=== PATIENT | female | born 1960 ===

== ENCOUNTER 2020-12-13 08:04 | Outpatient (REF) | payer MEDICAID, SELFPAY ==
--- NOTE | ~2020-12-13 | XR_ITS ---
EXAMINATION: XR KNEE, LEFT CLINICAL INFORMATION: Pain in left knee COMPARISON: Radiographs of the knee 06/17/2011 TECHNIQUE: Four views of the left knee. FINDINGS: There is mild narrowing along the lateral patellofemoral groove. The bones and soft tissues are otherwise normal. No fracture or joint effusion. Alignment is anatomic. Remaining joint spaces are well maintained. No abnormal soft tissue calcification. XR/XR knee LT 3V IMPRESSION: Mild narrowing along the bilateral patellofemoral groove. Otherwise unremarkable appearance of the knee.
--- NOTE | ~2020-12-13 | XR_ITS ---
EXAMINATION: XR LUMBOSACRAL SPINE CLINICAL INFORMATION: The ankle with sciatica, left side COMPARISON: Radiographs of the lumbar spine, most recently 09/17/2015 TECHNIQUE: Three views of the lumbosacral spine. FINDINGS: There is a mild dextro scoliotic curvature of the lumbosacral spine which is unchanged from the prior study. Alignment is otherwise normal. The vertebral body heights and posterior elements are normal. There is moderate loss of disc space at the L5-S1 level. There is associated degenerative endplate remodeling at this level as well as mild endplate remodeling at the upper endplate of L5 .The disc spaces are otherwise preserved. The paraspinal soft tissues are normal. XR/XR lumbar spine 2-3V IMPRESSION: Mild dextro scoliotic curvature of the lumbar spine, unchanged from prior studies. Moderate intervertebral disc space loss at L5-S1 with associated degenerative endplate change.
== END 2020-12-13 08:05 | disposition home or self-care (01) ==
LOC: HO.XRAY 08:04
PROVIDERS: PCP Internal Medicine; Referring Provider Internal Medicine; Visit Provider Student in an Organized Health Care Education/Training Program
DX: M70.62 Trochanteric bursitis, left hip (principal); G89.29 Other chronic pain; M25.562 Pain in left knee; M54.42 Lumbago with sciatica, left side
CPT/HCPCS: 20610; 72100; 73562; 99212

== ENCOUNTER 2021-02-20 13:28 | Outpatient (REF) | payer MEDICAID, SELFPAY | END 2021-02-20 13:29 | disposition home or self-care (01) | LOC: HO.LAB 13:28 | PROVIDERS: Visit Provider Internal Medicine | DX: Z20.822 Contact with and (suspected) exposure to COVID-19 (principal) | CPT/HCPCS: C9803; U0003; U0005 ==

== ENCOUNTER 2021-05-21 13:45 | Outpatient (REF) | payer MEDICAID, SELFPAY ==
--- NOTE | ~2021-05-21 | MM_ITS ---
EXAMINATION: BONE DENSITOMETRY CLINICAL INDICATION: Menopause. COMPARISON: Previous BD dated 05/17/2015 and baseline BD dated 02/08/2010. TECHNIQUE: Using a [employer] DXA System (software version: 13.1) manufactured by [employer], dual-energy x-ray absorptiometry was performed of the lumbar spine and left hip. The images are of good technical quality. Summary results are attached. FINDINGS: AP SPINE L1-L4: Current: BMD 0.899 g/cm2, Z-score -0.9, T-score -2.3, osteopenia, 0.2% decrease from previous, 16.4% decrease from baseline (<5% change is not significant). Prior: BMD 0.901 g/cm2. Baseline: BMD 1.076 g/cm2. LEFT FEMUR, NECK: Current: BMD 0.689 g/cm2, Z-score -1.1, T-score -2.5, osteoporosis. Prior: BMD 0.713 g/cm2. Baseline: BMD 0.773 g/cm2. LEFT FEMUR, TOTAL: Current: BMD 0.775 g/cm2, Z-score -0.8, T-score -1.8, osteopenia, 2.3% decrease from previous, 9.4% decrease from baseline (<5% change is not significant). Prior: BMD 0.793 g/cm2. Baseline: BMD 0.855 g/cm2. IDENTIFIED RISK FACTORS: Menopause, hysterectomy. HISTORY OF FRACTURE: None listed. MEDICATIONS: Calcium supplements or multivitamin, vitamin D. MM/XR DEXA axial skeleton IMPRESSION: 1. DIAGNOSIS: Osteoporosis based on the lowest T-score value of -2.5 in the femoral neck applying World Health Organization criteria. 2. 10-YEAR FRACTURE RISK PREDICTION, FRAX: Major osteoporotic fracture (clinical spine, forearm, hip or shoulder) 6.1%. Hip fracture 1.2%. 3. Treatment Recommendations: NOF guidelines recommend consideration for treatment in postmenopausal women and men age 50 and older presenting with the following: -A hip or vertebral (clinical or morphometric) fracture. -T-score less than or equal to -2.5 at the femoral neck or spine after appropriate evaluation to exclude secondary causes. -Low bone mass at the hip or spine and a 10-year fracture probability by FRAX of greater than or equal to 3% for hip fracture or greater than or equal to 20% for major osteoporotic fracture based on the [place] adapted WHO algorithm. 4. Other Recommendations: All treatment decisions require clinical judgment and consideration of individual patient factors, including patient preferences, comorbidities, previous drug use, risk factors not captured in the FRAX model (e.g. frailty, falls, vitamin D deficiency, increased bone turnover, interval significant decline in bone density) and possible under or overestimation of fracture risk by FRAX. Additional medical evaluation for secondary cause of low bone mineral density may be appropriate. FUTURE SCAN RECOMMENDATION: People with diagnosed cases of osteoporosis or at high risk for fracture should have regular bone mineral density tests. For patients eligible for Medicare, routine testing is allowed once every 2 years. The testing frequency can be increased to one year for patients who have rapidly progressing disease, those who are receiving or discontinuing medical therapy to restore bone mass, or have additional risk factors.
--- NOTE | ~2021-05-21 | MM_ITS ---
EXAMINATION: MM SCREENING DIGITAL BREAST TOMOSYNTHESIS, BILATERAL CLINICAL INFORMATION: Screening. Asymptomatic. Prior history breast reduction mammoplasty. The lifetime risk of breast cancer based on the Tyrer-Cuzick Model is 6%. COMPARISON: Mammography: 07/14/2019, 06/15/2017, 11/26/2015 TECHNIQUE: Digital breast tomosynthesis is performed in both the craniocaudal and mediolateral oblique views along with computer-aided detection (CAD). Synthesized 2D images are generated from the tomosynthesis. FINDINGS: There are scattered areas of fibroglandular density (ACR BI-RADS breast composition Category b). There are no significant masses, abnormal calcifications, or other abnormalities. The axilla are unremarkable. MM/MM tomosynthesis screening BI IMPRESSION: There are no significant changes from prior study. ASSESSMENT: BI-RADS 1: Negative RECOMMENDATION: Routine annual mammography screening. This patient's information was entered into a reminder system with a target due date for their next mammogram.
== END 2021-05-21 13:46 | disposition home or self-care (01) ==
LOC: HO.MAMMO 13:45
PROVIDERS: Visit Provider Internal Medicine
DX: Z12.31 Encounter for screening mammogram for malignant neoplasm of breast (principal); Z13.820 Encounter for screening for osteoporosis; M81.0 Age-related osteoporosis without current pathological fracture; Z78.0 Asymptomatic menopausal state; Z98.890 Other specified postprocedural states
CPT/HCPCS: 77063; 77067; 77080

== ENCOUNTER 2022-11-18 23:49 | Emergency (ER) | payer MEDICAID, SELFPAY ==
[2022-11-19 00:01] VITALS: BP 155/84; PULSE 48; RESP 18; TEMP 36.6; O2SAT 99; BMI 23.6
== END 2022-11-19 03:43 | disposition left against medical advice (07) ==
PROVIDERS: Emergency Provider Emergency Medicine; PCP Internal Medicine
DX: T15.91XA Foreign body on external eye, part unspecified, right eye, initial encounter (principal); X58.XXXA Exposure to other specified factors, initial encounter
CPT/HCPCS: 99281

== ENCOUNTER 2022-11-20 13:21 | Emergency (ER) | payer MEDICAID, SELFPAY ==
[2022-11-20 13:46] VITALS: BP 149/81; PULSE 47; RESP 20; TEMP 36.2; O2SAT 99; BMI 23.6
--- NOTE | 2022-11-20 13:46 | ED_ITS ---
HPI - Eye Problem General Chief complaint: Eye Problems <Laura Torres CNP - Last Filed: 11/20/22 13:49> Stated complaint: eyes itchy and hot <Laura Torres CNP - Last Filed: 11/20/22 13:49> Time Seen by Provider: 11/20/22 14:56 <Laura Torres CNP - Last Filed: 11/20/22 13:49> Source: patient and RN notes reviewed <JANEY Jaime - Last Filed: 11/20/22 15:47> Mode of arrival: ambulatory <JANEY Jaime Last Filed: 11/20/22 15:47> Limitations: no limitations and language barrier (educational sign language interpreter used) <JANEY Jaime Last Filed: 11/20/22 15:47> History of Present Illness HPI Narrative: This is a [id number]-female presenting to the emergency department with complaints of bilateral eye eye pain, itching and burning x 3 days. Patient states that 4 days ago she went to the mall to have eyelash extensions placed on her eyelids. She states that she woke up 3 days ago, she woke up with her symptoms. She denies any changes in her vision or any fevers or chills. She has had false lashes in the past without this type of reaction. She does not wear contact lenses <JANEY Jaime - Last Filed: 11/20/22 15:47> MD chief complaint: eye pain and eye redness <JANEY Jaime Last Filed: 11/20/22 15:47> Onset (ago): day(s) <JANEY Jaime - Last Filed: 11/20/22 15:47> Duration: constant <JANEY Jaime Last Filed: 11/20/22 15:47> Location: both eyes <JANEY Jaime Last Filed: 11/20/22 15:47> Eye Symptoms: burning, redness and pain <JANEY Jaime Last Filed: 11/20/22 15:47> Severity: moderate <JANEY Jaime Last Filed: 11/20/22 15:47> If Pain, Quality: aching <JANEY Jaime - Last Filed: 11/20/22 15:47> Associated symptoms: none <JANEY Jaime - Last Filed: 11/20/22 15:47> Treatments Prior to Arrival: none <JANEY Jaime - Last Filed: 11/20/22 15:47> Related Data Home medications: Home Medications Medication Instructions Recorded Confirmed amlodipine 5 mg tablet 5 mg PO DAILY 12/13/20 cholecalciferol (vitamin D3) 25 25 mcg PO DAILY 12/13/20 mcg (1,000 unit) capsule cyclobenzaprine 10 mg tablet 10 mg PO BEDTIME 12/13/20 duloxetine 30 mg capsule,delayed 30 mg PO DAILY 12/13/20 release (Cymbalta) gabapentin 100 mg capsule 100 mg PO BEDTIME 12/13/20 hydrochlorothiazide 25 mg tablet 25 mg PO DAILY 12/13/20 metoprolol succinate 25 mg 25 mg PO BID 12/13/20 tablet,extended release 24 hr naproxen 500 mg tablet,delayed 500 mg PO Q12H 12/13/20 release (EC-Naprosyn) omega-3 fatty acids 1,000 mg 1,000 mg PO DAILY 12/13/20 capsule (Fish Oil Concentrate) Previous Rx's Medication Instructions Recorded diphenhydramine HCl 25 mg capsule 50 mg PO Q8H PRN allergy symptoms 11/20/22 (Benadryl) #10 caps erythromycin 5 mg/gram (0.5 %) eye 0.5 inch ophthalmic (eye) TID 1 11/20/22 ointment week #3.5 grams <Laura Torres CNP - Last Filed: 11/20/22 13:49> Allergies/adverse reactions: Allergies Allergy/AdvReac Type Severity Reaction Status Date / Time No Known Allergies Allergy Verified 12/13/20 08:11 [No Known Allergies*] <Laura Torres CNP - Last Filed: 11/20/22 13:49> Review of Systems Review of Systems: Yes all other systems are reviewed and are negative <JANEY Jaime - Last Filed: 11/20/22 15:47> [facility] Past Medical History Medical History: Medical History (Updated 11/20/22 @ 15:19 by JANEY Jaime) Cervical spondylosis Fibromyalgia Ganglion cyst HTN (hypertension) Osteoarthritis Osteopenia Vitamin D deficiency <Laura Torres CNP - Last Filed: 11/20/22 13:49> Surgical History: Surgical History (Updated 12/13/20 @ 08:15 by Lety Gamez CMA) Hx of hysterectomy Hx of tubal ligation S/P foot surgery, right <Laura Torres CNP - Last Filed: 11/20/22 13:49> Family History Family History: Family History (Updated 12/13/20 @ 08:16 by Lety Gamez CMA) Father HTN (hypertension) Mother CVD (cardiovascular disease) <Laura Torres CNP - Last Filed: 11/20/22 13:49> Social History Social History: Social History (Updated 12/13/20 @ 08:17 by Lety Gamez CMA) Household Members: Spouse and Children Housing: Apartment Alcohol intake: never Smoked in Last 30 Days: No Use of substances other than those prescribed or required for medical reasons: No Advance Directives: No Advance Directives Information Provided: Yes Patient : No <Laura Torres CNP - Last Filed: 11/20/22 13:49> Physical Exam Vital Signs: Vital Signs: Last Vital Signs Temp 97.2 F 11/20/22 13:46 Pulse 47 L 11/20/22 13:46 Resp 20 11/20/22 13:46 BP 149/81 H 11/20/22 13:46 Pulse Ox 99 11/20/22 13:46 O2 Del Method 11/20/22 13:46 BMI result Body Mass Index 23.6 <Laura Torres CNP - Last Filed: 11/20/22 13:49> Vital Signs: Last Vital Signs Temp 97.2 F 11/20/22 13:46 Pulse 47 L 11/20/22 13:46 Resp 20 11/20/22 13:46 BP 149/81 H 11/20/22 13:46 Pulse Ox 99 11/20/22 13:46 O2 Del Method 11/20/22 13:46 BMI result Body Mass Index 23.6 <JANEY Jaime - Last Filed: 11/20/22 15:47> Vital Signs: Last Vital Signs Temp 97.2 F 11/20/22 13:46 Pulse 47 L 11/20/22 13:46 Resp 20 11/20/22 13:46 BP 149/81 H 11/20/22 13:46 Pulse Ox 99 11/20/22 13:46 O2 Del Method 11/20/22 13:46 BMI result Body Mass Index 23.6 <Jimmy Paredes MD - Last Filed: 11/20/22 16:20> Appearance: Alert. Oriented X3. No acute distress. HEENT: Bilateral upper and lower eyelids are midly edematous with crusting along the eyelash lid. No drainage. Conjunctiva normal. EOMI, PERRL CVS: Normal heart rate and rhythm. Pulses normal. Respiratory: No respiratory distress. Skin: Skin warm and dry. Normal skin color. Normal skin turgor. No rashes. Extremities: Normal to inspection, full ROM x 4 Neuro: Oriented X 3. No motor deficit. No sensory deficit. <JANEY Jaime - Last Filed: 11/20/22 15:47> Course Course Course Narrative: This is an RME: Additional HPI, ROS, PE not included below will be deferred to primary provider. Patient is a 62-year-old female who presents emergency department for evaluation of eye complaint. She reports bilateral eye pain, itching and burning sensation x 3 days after applying false eyelash extensions. She has a foreign body sensation to the right eye. Denies wearing contact lenses. Plan: visual acuity, optic evaluation. <Laura Torres CNP - Last Filed: 11/20/22 13:49> Reevaluation(s) Reevaluation #1: Patient evaluated. Visual acuity intact. Symptoms consistent with blepharitis secondary to false lashes, bacterial vs allergic. Will treat with erythromycin ointment and benadryl and advised to have the false lashes removed today. Counseled patient to return with any new or worsening symptoms. Patient understands and agrees with plan. <JANEY Jaime - Last Filed: 11/20/22 15:47> Time: 15:26 <JANEY Jaime - Last Filed: 11/20/22 15:47> Medications Administered Discontinued Medications Generic Name Dose Route Start Last Admin Trade Name Freq PRN Reason Stop Dose Admin Fluorescein Sodium 1 strip 11/20/22 13:49 11/20/22 15:19 Fluorescein Sodium Strip EYE-BOTH 11/20/22 13:50 Not Given ONCE ONE Tetracaine HCl 1 drop 11/20/22 13:49 11/20/22 15:19 Tetracaine Hcl/Pf 0.5% Oph Thu 4 Ml Drops EYE-BOTH 11/20/22 13:50 Not Given ONCE ONE <Laura Torres CNP - Last Filed: 11/20/22 13:49> Medications Administered Discontinued Medications Generic Name Dose Route Start Last Admin Trade Name Freq PRN Reason Stop Dose Admin Fluorescein Sodium 1 strip 11/20/22 13:49 11/20/22 15:19 Fluorescein Sodium Strip EYE-BOTH 11/20/22 13:50 Not Given ONCE ONE Tetracaine HCl 1 drop 11/20/22 13:49 11/20/22 15:19 Tetracaine Hcl/Pf 0.5% Oph Thu 4 Ml Drops EYE-BOTH 11/20/22 13:50 Not Given ONCE ONE <JANEY Jaime - Last Filed: 11/20/22 15:47> Medications Administered Discontinued Medications Generic Name Dose Route Start Last Admin Trade Name Freq PRN Reason Stop Dose Admin Fluorescein Sodium 1 strip 11/20/22 13:49 11/20/22 15:19 Fluorescein Sodium Strip EYE-BOTH 11/20/22 13:50 Not Given ONCE ONE Tetracaine HCl 1 drop 11/20/22 13:49 11/20/22 15:19 Tetracaine Hcl/Pf 0.5% Oph Thu 4 Ml Drops EYE-BOTH 11/20/22 13:50 Not Given ONCE ONE <Jimmy Paredes MD - Last Filed: 11/20/22 16:20> Medical Decision Making Medical Decision Making MDM Narrative: 34-[id number]-llr-female presenting today with probable blepharitis, viral vs bacterial secondary to false eyelashes. <JANEY Jaime - Last Filed: 11/20/22 15:47> Differential Diagnosis Differential Diagnoses: The differential diagnosis associated with the presentation includes <JANEY Jaime - Last Filed: 11/20/22 15:47> blepharitis, conjunctivitis, iritis, hordeolum <JANEY aJime - Last Filed: 11/20/22 15:47> Attestation Attending Attestation: I reviewed HOME HEALTH SCHEDULER/PA/Resident note, assessment and plan. I agree with the documentation, assessment and plan unless otherwise stated. <Jimmy Paredes MD - Last Filed: 11/20/22 16:20> Discharge Plan Discharge Clinical Impression: Blepharitis of both eyes <Laura Torres CNP - Last Filed: 11/20/22 13:49> Patient Disposition: Home, Self-Care <Laura Torres CNP - Last Filed: 11/20/22 13:49> Instructions: Blepharitis (ED) <Laura Torres CNP - Last Filed: 11/20/22 13:49> Additional Instructions: Your symptoms are likely due to the false lashes you had placed several days ago. Please have these removed today. Use prescribed antibiotic as directed. Take prescribed benadryl as directed, this may drowsiness, do not drink or operate heavy machinery while taking this medication. If you develop new or worsening symptoms call 911 or come back to the ER for further evaluation. Es probable que nabil s?ntomas se deban a las pesta?as postizas que le colocaron hace varios d?as. Por favor, elim?nelos hoy. Use el antibi?hannah recetado seg?n las indicaciones. [place] el benadryl recetado seg?n las indicaciones, esto puede causar somnolencia, no clover ni opere maquinaria pesada mientras bonnie bette medicamento. Si desarrolla s?ntomas nuevos o que empeoran, llame al 911 o regrese a la lynn de emergencias para allit evaluaci?n adicional. <Laura Torres CNP - Last Filed: 11/20/22 13:49> Prescriptions: New diphenhydramine HCl [Benadryl] 25 mg capsule 50 mg PO Q8H PRN (Reason: allergy symptoms) Qty: 10 0RF erythromycin 5 mg/gram (0.5 %) ointment 0.5 inch ophthalmic (eye) TID 7 Days Qty: 3.5 0RF No Action cholecalciferol (vitamin D3) 25 mcg (1,000 unit) capsule 25 mcg PO DAILY duloxetine [Cymbalta] 30 mg capsule,delayed release(DR/EC) 30 mg PO DAILY metoprolol succinate 25 mg tablet extended release 24 hr 25 mg PO BID amlodipine 5 mg tablet 5 mg PO DAILY gabapentin 100 mg capsule 100 mg PO BEDTIME cyclobenzaprine 10 mg tablet 10 mg PO BEDTIME hydrochlorothiazide 25 mg tablet 25 mg PO DAILY naproxen [EC-Naprosyn] 500 mg tablet,delayed release (DR/EC) 500 mg PO Q12H omega-3 fatty acids [Fish Oil Concentrate] 1,000 mg capsule 1,000 mg PO DAILY <Laura Torres CNP - Last Filed: 11/20/22 13:49> Interventions: ED Discharge Assessment Last Done: 11/20/22 15:34 <Laura Torres CNP - Last Filed: 11/20/22 13:49> Discharge Date/Time: 11/20/22 15:35 <Laura Torres CNP - Last Filed: 11/20/22 13:49> Print Language: Qatari <Laura Torres CNP - Last Filed: 11/20/22 13:49>
== END 2022-11-20 15:35 | disposition home or self-care (01) ==
PROVIDERS: Emergency Provider Emergency Medicine
DX: H01.00B Unspecified blepharitis left eye, upper and lower eyelids (principal); H01.00A Unspecified blepharitis right eye, upper and lower eyelids; I10 Essential (primary) hypertension; Z79.899 Other long term (current) drug therapy
CPT/HCPCS: 99283; 99284

== ENCOUNTER 2023-01-27 13:09 | Outpatient (REF) | payer MEDICAID, SELFPAY ==
--- NOTE | ~2023-01-27 | CT_ITS ---
CT SOFT TISSUE NECK WITH CONTRAST CLINICAL INFORMATION: Mass of the left hyoid. Infectious symptoms. COMPARISON: None available. TECHNIQUE: Following the intravenous administration of 60 mL of Omnipaque 350 intravenous contrast, helical imaging was performed in the axial plane with generation of coronal and sagittal reformatted images. This CT examination was performed using dose optimization techniques as appropriate, variously including the following: *Automated exposure control *Adjustment of mA and/or kV according to patient size (this includes techniques or standardized protocols for targeted exams where dose is matched to indication/reason for exam; i.e. extremities or head) *Use of iterative reconstruction technique FINDINGS: The thyroid gland is heterogeneous, enlarged, and exhibits small hyperdense nodules. There is stranding within the visceral space adjacent to the thyroid and given the presence of infectious symptoms, acute thyroiditis is suspected. Recommend correlation with thyroid function tests and thyroid ultrasound. The parotid glands, the submandibular glands, and the orbital soft tissues are unremarkable. The superficial mucosal space is normal. The laryngeal structures are closely opposed in phonation and not diagnostically assessed. There is no cervical lymphadenopathy. Cervical arterial vasculature remains patent. Cervical venous system is patent. The partially imaged intracranial compartment is unremarkable. Imaged upper lungs are clear. Mild cervical spondylosis. Paranasal sinuses and mastoid air cells are clear. CT/CT soft tissue neck w IV con IMPRESSION: The thyroid gland is heterogeneous, enlarged, and exhibits small hyperdense nodules. There is stranding within the visceral space adjacent to the thyroid and given the presence of infectious symptoms, acute thyroiditis is suspected. Recommend correlation with thyroid function tests and thyroid ultrasound. These findings correlate with the site of palpable abnormality.
[2023-01-27] MEDS: iohexoL 350 MG/ML 100 ML INFUS..BTL IV (14:23)
[2023-01-28 07:27] LABS: Creatinine POC 0.7 mg/dL (0.5-1.4); GFR POC > 60
== END 2023-01-27 13:10 | disposition home or self-care (01) ==
LOC: HO.CT 13:09
PROVIDERS: Visit Provider Emergency Medicine
DX: R22.1 Localized swelling, mass and lump, neck (principal)
CPT/HCPCS: 70491; 82565; Q9967

== ENCOUNTER 2023-01-27 16:26 | Emergency (ER) | payer MEDICAID, SELFPAY ==
[2023-01-27 16:40] VITALS: BP 111/73; PULSE 71; RESP 18; TEMP 36; O2SAT 97; BMI 24.2
--- NOTE | 2023-01-27 16:40 | ED_ITS ---
HPI - Recheck/Abnormal Lab/Rx General Chief Complaint: General Medical <JANEY Jaime - Last Filed: 01/27/23 16:49> Stated Complaint: Abdnormal Labs/Sent from DR office <JANEY Jaime - Last Filed: 01/27/23 16:49> Time Seen by Provider: 01/27/23 21:18 <JANEY Jaime - Last Filed: 01/27/23 16:49> Source: patient <Ck Mancuso MD - Last Filed: 01/27/23 22:41> Mode of arrival: ambulatory <Ck Mancuso MD - Last Filed: 01/27/23 22:41> Limitations: no limitations <Ck Mancuso MD - Last Filed: 01/27/23 22:41> History of Present Illness HPI narrative: Patient history of hypertension, osteoporosis, fibromyalgia noticed pain and swelling of the thyroid for last 5 days had temperature 103 degrees yesterday with sore throat seen at urgent care office strep test everything was negative had a CT scan done today which showed inflammation of the thyroid gland no abscess or fluid collection patient denies any palpitation on arrival heart rate was 71 beats per minute patient is on metoprolol for hypertension <Ck Mancuso MD - Last Filed: 01/27/23 22:41> Related Data Home Medications: Home Medications Medication Instructions Recorded Confirmed amlodipine 5 mg tablet 5 mg PO DAILY 12/13/20 cholecalciferol (vitamin D3) 25 25 mcg PO DAILY 12/13/20 mcg (1,000 unit) capsule cyclobenzaprine 10 mg tablet 10 mg PO BEDTIME 12/13/20 duloxetine 30 mg capsule,delayed 30 mg PO DAILY 12/13/20 release (Cymbalta) gabapentin 100 mg capsule 100 mg PO BEDTIME 12/13/20 hydrochlorothiazide 25 mg tablet 25 mg PO DAILY 12/13/20 metoprolol succinate 25 mg 25 mg PO BID 12/13/20 tablet,extended release 24 hr naproxen 500 mg tablet,delayed 500 mg PO Q12H 12/13/20 release (EC-Naprosyn) omega-3 fatty acids 1,000 mg 1,000 mg PO DAILY 12/13/20 capsule (Fish Oil Concentrate) Previous Rx's Medication Instructions Recorded diphenhydramine HCl 25 mg capsule 50 mg PO Q8H PRN allergy symptoms 11/20/22 (Benadryl) #10 caps erythromycin 5 mg/gram (0.5 %) eye 0.5 inch ophthalmic (eye) TID 1 11/20/22 ointment week #3.5 grams ibuprofen 600 mg tablet 600 mg PO Q6H PRN fever or pain 01/27/23 #30 tabs <JANEY Jaime - Last Filed: 01/27/23 16:49> Allergies/Adverse Reactions: Allergies Allergy/AdvReac Type Severity Reaction Status Date / Time No Known Allergies Allergy Verified 01/27/23 16:40 [No Known Allergies*] <JANEY Jaime - Last Filed: 01/27/23 16:49> Review of Systems Review of Systems: Yes all other systems are reviewed and are negative <Ck Mancuso MD - Last Filed: 01/27/23 22:41> [facility] Past Medical History Medical History: Medical History Cervical spondylosis Fibromyalgia Ganglion cyst HTN (hypertension) Osteoarthritis Osteopenia Vitamin D deficiency <JANEY Jaime - Last Filed: 01/27/23 16:49> Surgical History: Surgical History Hx of hysterectomy Hx of tubal ligation S/P foot surgery, right <JANEY Jaime - Last Filed: 01/27/23 16:49> Family History Family History: Family History Father HTN (hypertension) Mother CVD (cardiovascular disease) <JANEY Jaime - Last Filed: 01/27/23 16:49> Social History Social History: Social History Household Members: Spouse and Children Housing: Apartment Alcohol intake: never Smoked in Last 30 Days: No Use of substances other than those prescribed or required for medical reasons: No Advance Directives: No Advance Directives Information Provided: No Patient : No <JANEY Jaime - Last Filed: 01/27/23 16:49> Physical Exam Vital Signs: Vital Signs: Last Vital Signs Temp 96.8 F 01/27/23 16:40 Pulse 65 01/27/23 22:00 Resp 16 01/27/23 22:00 BP 135/80 01/27/23 22:00 Pulse Ox 97 01/27/23 22:00 O2 Del Method Room Air 01/27/23 22:00 BMI result Body Mass Index 24.2 <JANEY Jaime - Last Filed: 01/27/23 16:49> Vital Signs: Last Vital Signs Temp 96.8 F 01/27/23 16:40 Pulse 65 01/27/23 22:00 Resp 16 01/27/23 22:00 BP 135/80 01/27/23 22:00 Pulse Ox 97 01/27/23 22:00 O2 Del Method Room Air 01/27/23 22:00 BMI result Body Mass Index 24.2 <Ck Mancuso MD - Last Filed: 01/27/23 22:41> Appearance: Alert. Oriented X3. No acute distress. Eyes: PERRLA, No Nystagmus ENT: Pharynx normal. Oral Mucosa moist enlarged thyroid gland normal temperature no skin color changes no bruits Neck: Normal inspection. Neck supple. CVS: Normal heart rate and rhythm. Pulses normal. Respiratory: No respiratory distress. Equal air entry bilateral, no wheezing/rales/rhonchi Abdomen: Soft and nontender. Bowel sounds are present, no mass palpable, no CVA tenderness Skin: Skin warm and dry. Normal skin color. Normal skin turgor. Extremities: No lower extremity edema. No calf tenderness Neuro: Oriented X 3. No motor deficit. No sensory deficit.No cerebellar signs , cranial nerves II-XII intact <Ck Mancuso MD - Last Filed: 01/27/23 22:41> Course Course Course Narrative: RME - 62 y/o female with history of fibromyalgia, osteoporosis, HTN who presents to the ER evaluation of neck pain for the last 5-6 days. Seen at Urgent Care yesterday and was told today that she has low sodium, chloride, potassium. She was sent here for an outpatient CT scan of her neck that showed findings concerning for acute thyroiditis. CT/CT soft tissue neck w IV con IMPRESSION: The thyroid gland is heterogeneous, enlarged, and exhibits small hyperdense nodules. There is stranding within the visceral space adjacent to the thyroid and given the presence of infectious symptoms, acute thyroiditis is suspected. Recommend correlation with thyroid function tests and thyroid ultrasound. These findings correlate with the site of palpable abnormality. Plan: no tachycardia or fever to suggest thyroid storm lab workup including TSH reflex to T4 and T4 <JANEY Jaime - Last Filed: 01/27/23 16:49> Medications Administered Discontinued Medications Generic Name Dose Route Start Last Admin Trade Name Freq PRN Reason Stop Dose Admin Ibuprofen 600 mg 01/27/23 22:25 01/27/23 22:30 Ibuprofen 600 Mg Tablet PO 01/27/23 22:26 600 mg ONCE ONE Administration Potassium Bicarbonate 25 meq 01/27/23 22:21 01/27/23 22:31 Potassium Bicarbonate/Cit Ac 25 Meq Tablet.Eff PO 01/27/23 22:22 25 meq ONCE ONE Administration <JANEY Jaime - Last Filed: 01/27/23 16:49> Medications Administered Discontinued Medications Generic Name Dose Route Start Last Admin Trade Name Freq PRN Reason Stop Dose Admin Ibuprofen 600 mg 01/27/23 22:25 01/27/23 22:30 Ibuprofen 600 Mg Tablet PO 01/27/23 22:26 600 mg ONCE ONE Administration Potassium Bicarbonate 25 meq 01/27/23 22:21 01/27/23 22:31 Potassium Bicarbonate/Cit Ac 25 Meq Tablet.Eff PO 01/27/23 22:22 25 meq ONCE ONE Administration <Ck Mancuso MD - Last Filed: 01/27/23 22:41> Medical Decision Making Medical Decision Making [facility] Narrative: Patient with subacute thyroiditis with elevated sed rate elevated CRP normal WBC count CT scan showed inflammation without any fluid collection will start patient on ibuprofen advised see the response he should get in decreasing pain in next 48 hours if not advised to follow-up with PCP to add steroids patient pain is mild not severe at this time patient advised to follow with professor of physical education Patient TSH was 0.11 but F T4 was normal 1.7 <Ck Mancuso MD - Last Filed: 01/27/23 22:41> Lab Data [facility] Lab Attestation statement: I reviewed the patient's lab results. <Ck Mancuso MD - Last Filed: 01/27/23 22:41> Result Diagrams: 01/27/23 16:50 01/27/23 16:50 <JANEY Jaime - Last Filed: 01/27/23 16:49> Labs: Lab Results 01/27/23 01/27/23 01/27/23 Range/Units 16:50 16:50 16:50 WBC 7.5 (4.8-10.8) X10*3/uL RBC 3.93 L (4.20-5.50) X10*6/uL Hgb 11.6 L (12.0-16.0) g/dl Hct 34.6 L (37.0-47.0) % MCV 88.0 (80.0-98.0) fL MCH 29.5 (27.0-33.0) pg MCHC 33.5 (31.0-35.0) g/dl RDW 12.3 (11.0-16.0) % Plt Count 386 (160-400) X10*3/uL MPV 10.1 (9.4-12.3) fL Immature Gran % (Auto) 0.4 (0.0-0.4) % Neut % (Auto) 58.0 (45-73) % Lymph % (Auto) 31.9 (20-40) % Rice % (Auto) 8.6 (2-11) % Eos % (Auto) 0.7 (0-4) % Baso % (Auto) 0.4 (0-2) % Lymph # (Auto) 2.4 (1.2-4.9) X10*3/uL Rice # (Auto) 0.6 (0.1-1.2) X10*3/uL Eos # (Auto) 0.1 (0.0-0.4) X10*3/uL Baso # (Auto) 0.0 (0.0-0.2) X10*3/uL Abs Immat Gran (auto) 0.03 (0.00-0.03) X10*3/uL Absolute Neuts (auto) 4.3 (2.0-8.3) x10*3/uL Absolute Nucleated RBC 0.000 (0.0-0.012) X10*3/uL Nucleated RBC % (auto) 0.0 (0.0-0.2) /100WBC ESR 86 H (0-20) MM/HR Sodium 132 L (135-145) mmol/L Potassium 3.1 L (3.3-5.1) mmol/L Chloride 89 L (96-108) mmol/L Carbon Dioxide 32 H (22-29) mmol/L Anion Gap 14 (12-20) BUN 11 (9-16) mg/dL Creatinine 0.75 (0.5-1.4) mg/dL Estim Creat Clear Calc 65.3 Estimated GFR > 60 Random Glucose 143 H (60-115) mg/dL Calcium 9.4 (8.4-10.2) mg/dL Magnesium 2.7 H (1.6-2.6) mg/dL Total Bilirubin 0.9 (0.0-1.0) mg/dL Direct Bilirubin 0.3 (0.0-0.5) mg/dL AST 36 H (5-31) U/L ALT 31 (0-31) U/L Alkaline Phosphatase 115 (39-117) U/L C-Reactive Protein 23.22 H (< or = 0.50) mg/dL Total Protein 7.9 (6.5-8.0) g/dL Albumin 4.2 (3.5-5.0) g/dL TSH 0.11 L (0.32-4.0) uIU/mL Free T4 1.70 (0.71-1.85) ng/dL <JANEY Jaime - Last Filed: 01/27/23 16:49> Lab Results 01/27/23 01/27/23 01/27/23 Range/Units 16:50 16:50 16:50 WBC 7.5 (4.8-10.8) X10*3/uL RBC 3.93 L (4.20-5.50) X10*6/uL Hgb 11.6 L (12.0-16.0) g/dl Hct 34.6 L (37.0-47.0) % MCV 88.0 (80.0-98.0) fL MCH 29.5 (27.0-33.0) pg MCHC 33.5 (31.0-35.0) g/dl RDW 12.3 (11.0-16.0) % Plt Count 386 (160-400) X10*3/uL MPV 10.1 (9.4-12.3) fL Immature Gran % (Auto) 0.4 (0.0-0.4) % Neut % (Auto) 58.0 (45-73) % Lymph % (Auto) 31.9 (20-40) % Rice % (Auto) 8.6 (2-11) % Eos % (Auto) 0.7 (0-4) % Baso % (Auto) 0.4 (0-2) % Lymph # (Auto) 2.4 (1.2-4.9) X10*3/uL Rice # (Auto) 0.6 (0.1-1.2) X10*3/uL Eos # (Auto) 0.1 (0.0-0.4) X10*3/uL Baso # (Auto) 0.0 (0.0-0.2) X10*3/uL Abs Immat Gran (auto) 0.03 (0.00-0.03) X10*3/uL Absolute Neuts (auto) 4.3 (2.0-8.3) x10*3/uL Absolute Nucleated RBC 0.000 (0.0-0.012) X10*3/uL Nucleated RBC % (auto) 0.0 (0.0-0.2) /100WBC ESR 86 H (0-20) MM/HR Sodium 132 L (135-145) mmol/L Potassium 3.1 L (3.3-5.1) mmol/L Chloride 89 L (96-108) mmol/L Carbon Dioxide 32 H (22-29) mmol/L Anion Gap 14 (12-20) BUN 11 (9-16) mg/dL Creatinine 0.75 (0.5-1.4) mg/dL Estim Creat Clear Calc 65.3 Estimated GFR > 60 Random Glucose 143 H (60-115) mg/dL Calcium 9.4 (8.4-10.2) mg/dL Magnesium 2.7 H (1.6-2.6) mg/dL Total Bilirubin 0.9 (0.0-1.0) mg/dL Direct Bilirubin 0.3 (0.0-0.5) mg/dL AST 36 H (5-31) U/L ALT 31 (0-31) U/L Alkaline Phosphatase 115 (39-117) U/L C-Reactive Protein 23.22 H (< or = 0.50) mg/dL Total Protein 7.9 (6.5-8.0) g/dL Albumin 4.2 (3.5-5.0) g/dL TSH 0.11 L (0.32-4.0) uIU/mL Free T4 1.70 (0.71-1.85) ng/dL <Ck Mancuso MD - Last Filed: 01/27/23 22:41> Radiology Impression Discussion of test interpretation with radiology: I have reviewed the radiologist's reading. <Ck Mancuso MD - Last Filed: 01/27/23 22:41> Radiologist Impression: CT/CT soft tissue neck w IV con IMPRESSION: The thyroid gland is heterogeneous, enlarged, and exhibits small hyperdense nodules. There is stranding within the visceral space adjacent to the thyroid and given the presence of infectious symptoms, acute thyroiditis is suspected. Recommend correlation with thyroid function tests and thyroid ultrasound. These findings correlate with the site of palpable abnormality. <Ck Mancuso MD - Last Filed: 01/27/23 22:41> Discharge Plan Discharge Clinical Impression: Subacute thyroiditis <JANEY Jaime - Last Filed: 01/27/23 16:49> Patient Disposition: Home, Self-Care <JANEY Jaime - Last Filed: 01/27/23 16:49> Instructions: Thyroid Goiter (ED) <JANEY Jaime - Last Filed: 01/27/23 16:49> Additional Instructions: Continue medications and follow up with specialist further manage Take ibuprofen 1 tablet every 6 hours for inflammation pain <JANEY Jaime - Last Filed: 01/27/23 16:49> Prescriptions: New ibuprofen 600 mg tablet 600 mg PO Q6H PRN (Reason: fever or pain) Qty: 30 0RF No Action diphenhydramine HCl [Benadryl] 25 mg capsule 50 mg PO Q8H PRN (Reason: allergy symptoms) Qty: 10 0RF erythromycin 5 mg/gram (0.5 %) ointment 0.5 inch ophthalmic (eye) TID 7 Days Qty: 3.5 0RF cholecalciferol (vitamin D3) 25 mcg (1,000 unit) capsule 25 mcg PO DAILY duloxetine [Cymbalta] 30 mg capsule,delayed release(DR/EC) 30 mg PO DAILY metoprolol succinate 25 mg tablet extended release 24 hr 25 mg PO BID amlodipine 5 mg tablet 5 mg PO DAILY gabapentin 100 mg capsule 100 mg PO BEDTIME cyclobenzaprine 10 mg tablet 10 mg PO BEDTIME hydrochlorothiazide 25 mg tablet 25 mg PO DAILY naproxen [EC-Naprosyn] 500 mg tablet,delayed release (DR/EC) 500 mg PO Q12H omega-3 fatty acids [Fish Oil Concentrate] 1,000 mg capsule 1,000 mg PO DAILY <JANEY Jaime - Last Filed: 01/27/23 16:49> Referrals: Daniel Finley MD [Physician] - 3 days <JANEY Jaime - Last Filed: 01/27/23 16:49> Print Language: English <JANEY Jaime - Last Filed: 01/27/23 16:49>
[2023-01-27 16:55] LABS: MANUAL DIFF FLAG NO
[2023-01-27 17:05] LABS: Basophils Percent Auto 0.4 % (0-2); Eosinophils Absolute Auto 0.1 X10*3/uL (0.0-0.4); Eosinophils Percent Auto 0.7 % (0-4); Hematocrit 34.6 % (37.0-47.0); Hemoglobin 11.6 g/dl (12.0-16.0); Imm Gran Abs Auto 0.03 X10*3/uL (0.00-0.03); Imm Gran Pct Auto 0.4 % (0.0-0.4); Lymphocytes Absolute Auto 2.4 X10*3/uL (1.2-4.9); Lymphocytes Percent Auto 31.9 % (20-40); Mean Corpuscular HGB Conc 33.5 g/dl (31.0-35.0); Mean Corpuscular Hemoglobin 29.5 pg (27.0-33.0); Mean Platelet Volume 10.1 fL (9.4-12.3); Monocytes Absolute Auto 0.6 X10*3/uL (0.1-1.2); Monocytes Percent Auto 8.6 % (2-11); Neutrophils Absolute Auto 4.3 x10*3/uL (2.0-8.3); Platelet Count 386 X10*3/uL (160-400); Red Blood Count 3.93 X10*6/uL (4.20-5.50); Red Cell Distribution Width 12.3 % (11.0-16.0); White Blood Count 7.5 X10*3/uL (4.8-10.8)
[2023-01-27 17:23] LABS: Alanine Aminotransferase 31 U/L (0-31); Albumin Level 4.2 g/dL (3.5-5.0); Alkaline Phosphatase 115 U/L (39-117); Anion Gap 14 (12-20); Aspartate Amino Transferase 36 U/L (5-31); Bilirubin Direct 0.3 mg/dL (0.0-0.5); Bilirubin Total 0.9 mg/dL (0.0-1.0); Blood Urea Nitrogen 11 mg/dL (9-16); C Reactive Protein 23.22 mg/dL (< or = 0.50); Calcium 9.4 mg/dL (8.4-10.2); Carbon Dioxide 32 mmol/L (22-29); Chloride 89 mmol/L (96-108); Creatinine Clr Calc Pharmacy 65.3; Estimated Glomerular Filt Rate > 60; Glucose Random 143 mg/dL (60-115); Magnesium 2.7 mg/dL (1.6-2.6); Potassium 3.1 mmol/L (3.3-5.1); Sodium 132 mmol/L (135-145); Total Protein 7.9 g/dL (6.5-8.0)
[2023-01-27 17:37] LABS: TSH reflex Free T4 0.11 uIU/mL (0.32-4.0)
[2023-01-27 18:09] LABS: Erythrocyte Sedimentation Rate 86 MM/HR (0-20)
[2023-01-27 22:00] VITALS: BP 135/80; PULSE 65; RESP 16; O2SAT 97
[2023-01-27] MEDS: Ibuprofen 600 MG TABLET PO (22:30)
[2023-01-27] MEDS: Potassium Bicarbonate/Cit AC 25 MEQ TABLET.EFF PO (22:31)
[2023-01-28 19:14] LABS: Triiodothyronine T3 Total 170 ng/dL (76-181)
== END 2023-01-27 22:44 | disposition home or self-care (01) ==
PROVIDERS: Physician Assistant; Emergency Provider Internal Medicine; PCP Internal Medicine
DX: E06.0 Acute thyroiditis (principal); R79.89 Other specified abnormal findings of blood chemistry; Z79.899 Other long term (current) drug therapy
CPT/HCPCS: 36415; 80048; 80076; 83735; 84439; 84443; 84480; 85025; 85652; 86140; 99283; 99284

== ENCOUNTER 2023-02-19 14:15 | Outpatient (REF) | payer MEDICAID, SELFPAY ==
--- NOTE | ~2023-02-19 | US_ITS ---
EXAMINATION: US THYROID CLINICAL INFORMATION: Thyroiditis, tender neck, lymphadenopathy. COMPARISON: CT soft tissue neck with intravenous contrast dated 01/27/2023. TECHNIQUE: Linear transducer grayscale and color Doppler examination with attention to the region of the thyroid. FINDINGS: SIZE: Measurements of the thyroid lobes and nodules are given in sagittal, anteroposterior and transverse dimensions respectively. Right Thyroid Lobe: 4.7 x 1.2 x 1.6 cm, volume 4.7 mL. Parenchyma: The gland echotexture is heterogeneous. Thyroid vascularity is normal. Left Thyroid Lobe: 3.9 x 1.3 x 1.4 cm, volume 3.7 mL. Parenchyma: The gland echotexture is heterogeneous. Thyroid vascularity is normal. Isthmus: 0.2 cm in maximum AP dimension. Estimated total number of nodules greater than or equal to 1 cm: 1. Obstetrical Anesthesiologist nodules are described as follows: 1. Location: Right superior. Size: 0.6 x 0.3 x 0.6 cm, volume 0.06 mL. Nodule characteristics: Composition: Solid/almost completely solid (2). Echogenicity: Hypoechoic (2). Shape: Not taller than wide (0). Margins: Ill-defined (0). Echogenic Foci: None (0). ACR TI-RADS total points: 4 ACR TI-RADS category: 4 2. Location: Right superior. Size: 1.1 x 0.7 x 0.7 cm, volume 0.27 mL. Nodule characteristics: Composition: Solid/almost completely solid (2). Echogenicity: Hypoechoic (2). Shape: Not taller than wide (0). Margins: Smooth (0). Echogenic Foci: Punctate echogenic foci (3). ACR TI-RADS total points: 7 ACR TI-RADS category: 5 3. Location: Right inferior. Size: 0.5 x 0.3 x 0.5 cm, volume 0.03 mL. Nodule characteristics: Composition: Mixed cystic and solid (1). Echogenicity: Hypoechoic (2). Shape: Not taller than wide (0). Margins: Smooth (0). Echogenic Foci: Punctate echogenic foci (3). ACR TI-RADS total points: 6 ACR TI-RADS category: 4 4. Location: Left mid. Size: 0.5 x 0.3 x 0.4 cm, volume 0.04 mL. Nodule characteristics: Composition: Mixed cystic and solid (1). Echogenicity: Hypoechoic (2). Shape: Not taller than wide (0). Margins: Ill-defined (0). Echogenic Foci: Punctate echogenic foci (3). ACR TI-RADS total points: 6 ACR TI-RADS category: 4 5. Location: Left mid. Size: 0.4 x 0.3 x 0.3 cm, volume 0.02 mL. Nodule characteristics: Composition: Cystic(0). ACR TI-RADS total points: 0 ACR TI-RADS category: 1 NODES: No lymphadenopathy is seen in the tissue surrounding the thyroid gland. US/US thyroid IMPRESSION: Multinodular goiter with only one mass over a centimeter in size measuring 1.1 cm. This mass is #2 above, TI-RADS category 5 and FNA is recommended. ACR TI-RADS RECOMMENDATION REFERENCE: Ultrasound-guided fine-needle aspiration, followup ultrasound, no further follow up. * TR1 (0 point) and TR2 (2 points): No FNA or follow up. * TR3 (3 points): FNA if more than or equal to 2.5 cm in maximum dimension, followup ultrasound in 1, 3 and 5 years if 1.5 to 2.4 cm in maximum dimension. * TR4 (4-6 points): FNA if more than or equal to 1.5 cm in maximum dimension, followup ultrasound in 1, 2, 3 and 5 years if 1 to 1.4 cm in maximum dimension. * TR5 (more than or equal to 7 points): FNA if more than or equal to 1 cm in maximum dimension, followup ultrasound every year for 5 years if 0.5 to 0.9 cm in maximum dimension. * TR3, TR4 or TR5 nodules that are below the size threshold for followup receive no follow up.
== END 2023-02-19 14:16 | disposition home or self-care (01) ==
LOC: HO.HMGCX 14:15
PROVIDERS: PCP Internal Medicine; Visit Provider Internal Medicine
DX: E06.9 Thyroiditis, unspecified (principal)
CPT/HCPCS: 76536

== ENCOUNTER 2023-05-27 18:12 | Emergency (ER) | payer MEDICAID, SELFPAY ==
--- NOTE | 2023-05-27 18:20 | ED.GENADULT ---
HPI - General Adult General Chief complaint: General Medical Stated complaint: dizziness,nausea Time Seen by Provider: 05/27/23 22:26 Source: patient Mode of arrival: ambulatory Limitations: no limitations History of Present Illness HPI narrative: Patient complaining of generalized weakness all day today with muscle cramps nauseous sweaty no chest pain or palpitation abdominal pain no nausea no vomiting patient takes hydrochlorothiazide for hypertension was drinking enough fluids labs were done prior to my evaluation shows potassium of 2.7 patient does not have any prior history of low potassium Related Data Allergies Allergy/AdvReac Type Severity Reaction Status Date / Time No Known Allergies Allergy Verified 05/27/23 18:24 Review of Systems Review of Systems: Yes all other systems are reviewed and are negative [facility] Social History Social History Alcohol intake: never Smoked in Last 30 Days: No Use of substances other than those prescribed or required for medical reasons: No Advance Directives: No Advance Directives Information Provided: No Physical Exam ED Vital Signs: Vital Signs - 24 hr 05/27/23 18:25 05/27/23 21:34 05/28/23 01:09 Temperature 96.7 F L 97.8 F 97.8 F Pulse Rate 61 62 55 Respiratory Rate 16 14 16 Blood Pressure 152/86 H 142/68 H 151/78 H Pulse Oximetry 97 97 98 Oxygen Delivery Method Room Air Room Air Room Air BMI result Body Mass Index 23.4 Appearance: Alert. Oriented X3. No acute distress. Eyes: PERRLA, No Nystagmus ENT: Pharynx normal. Oral Mucosa moist Neck: Normal inspection. Neck supple. CVS: Normal heart rate and rhythm. Pulses normal. Respiratory: No respiratory distress. Equal air entry bilateral, no wheezing/rales/rhonchi Abdomen: Soft and nontender. Bowel sounds are present, no mass palpable, no CVA tenderness Skin: Skin warm and dry. Normal skin color. Normal skin turgor. Extremities: No lower extremity edema. No calf tenderness Neuro: Oriented X 3. No motor deficit. No sensory deficit.No cerebellar signs , cranial nerves II-XII intact Course Course Course Narrative: This is an RME: Additional HPI, ROS, PE not included below will be deferred to primary provider. This is a [id number]-[id number]-female, with a past medical history of osteoporosis, fibromyalgia, hypertension, presenting to the emergency department with a complaint of generalized weakness and nausea x1 hour. Denies fevers, chills, vomiting, chest pain, shortness of breath. Patient is full it neurologically intact. Vitals signs stable. Plan: Labs, EKG, UA Medications Administered Discontinued Medications Generic Name Dose Route Start Last Admin Trade Name Apolinarq PRN Reason Stop Dose Admin Sodium Chloride 1,000 mls @ 999 mls/hr 05/27/23 22:28 05/28/23 00:39 Ns IV 05/27/23 23:28 Infused .Q1H1M ONE Infusion Potassium Bicarbonate 50 meq 05/27/23 22:28 05/27/23 22:55 Potassium Bicarbonate/Cit Ac 25 Meq Tablet.Eff PO 05/27/23 22:29 50 meq ONCE ONE Administration Medical Decision Making Medical Decision Making [facility] Narrative: Patient workup shows potassium 2.7 without any EKG changes received 50 meq p.o. potassium repeat potassium was 3.5 patient feeling much better after IV fluids advised to have extra potassium containing foods today follow-up with PCP next week Differential Diagnosis Differential Diagnoses: The differential diagnosis associated with the presentation includes Hypomagnesemia/ hypokalemia /hyponatremia/dehydration/infection process Admission/Observation Consideration of admission/observation: Escalation of care including admission/observation considered Lab Data [facility] Lab Attestation statement: I reviewed the patient's lab results. 05/27/23 20:02 05/27/23 20:02 Labs: Lab Results 05/27/23 05/27/23 05/27/23 Range/Units 20:02 20:02 20:02 WBC 7.5 (4.8-10.8) X10*3/uL RBC 4.21 (4.20-5.50) X10*6/uL Hgb 12.6 (12.0-16.0) g/dl Hct 37.6 (37.0-47.0) % MCV 89.3 (80.0-98.0) fL MCH 29.9 (27.0-33.0) pg MCHC 33.5 (31.0-35.0) g/dl RDW 13.0 (11.0-16.0) % Plt Count 300 (160-400) X10*3/uL MPV 11.3 (9.4-12.3) fL Immature Gran % (Auto) 0.3 (0.0-0.4) % Neut % (Auto) 68.3 (45-73) % Lymph % (Auto) 22.4 (20-40) % [place] % (Auto) 7.7 (2-11) % Eos % (Auto) 0.8 (0-4) % Baso % (Auto) 0.5 (0-2) % Lymph # (Auto) 1.7 (1.2-4.9) X10*3/uL [place] # (Auto) 0.6 (0.1-1.2) X10*3/uL Eos # (Auto) 0.1 (0.0-0.4) X10*3/uL Baso # (Auto) 0.0 (0.0-0.2) X10*3/uL Abs Immat Gran (auto) 0.02 (0.00-0.03) X10*3/uL Absolute Neuts (auto) 5.1 (2.0-8.3) x10*3/uL Absolute Nucleated RBC 0.000 (0.0-0.012) X10*3/uL Nucleated RBC % (auto) 0.0 (0.0-0.2) /100WBC Sodium 136 (135-145) mmol/L Potassium 2.7 L (3.3-5.1) mmol/L Chloride 94 L (96-108) mmol/L Carbon Dioxide 30 H (22-29) mmol/L Anion Gap 15 (12-20) BUN 17 H (9-16) mg/dL Creatinine 0.77 (0.5-1.4) mg/dL Estim Creat Clear Calc 58.6 Estimated GFR > 60 Random Glucose 137 H (60-115) mg/dL Calcium 10.0 (8.4-10.2) mg/dL Magnesium 2.4 (1.6-2.6) mg/dL Total Bilirubin 0.4 (0.0-1.0) mg/dL Direct Bilirubin 0.2 (0.0-0.5) mg/dL AST 29 (5-31) U/L ALT 13 (0-31) U/L Alkaline Phosphatase 87 (39-117) U/L Troponin I High Sens < 2.7 (<3.5-17.0) ng/L Total Protein 8.5 H (6.5-8.0) g/dL Albumin 4.9 (3.5-5.0) g/dL Lipase 11 (8-78) U/L Urine Color Urine Appearance Urine pH (5.0-9.0) Ur Specific [place] (1.005-1.025) Urine Protein (Neg-Trace) mg/dL Urine Glucose (UA) (Negative) mg/dL Urine Ketones (Negative) mg/dL Urine Blood (Negative) Urine Nitrite (Negative) Ur Leukocyte Esterase (Negative) Urine RBC (0-2) /HPF Urine WBC (0-5) /HPF Ur Squamous Epith Cells (0-2) /HPF Urine Bacteria (None Seen) Hyaline Casts (0-2) /LPF Influenza Type A (PCR) (Negative) Influenza Type B (PCR) (Negative) RSV RNA Qual (PCR) (Negative) SARS-CoV-2 RNA (RT-PCR) (Negative) 05/27/23 05/27/23 05/28/23 Range/Units 20:02 20:02 00:41 WBC (4.8-10.8) X10*3/uL RBC (4.20-5.50) X10*6/uL Hgb (12.0-16.0) g/dl Hct (37.0-47.0) % MCV (80.0-98.0) fL MCH (27.0-33.0) pg MCHC (31.0-35.0) g/dl RDW (11.0-16.0) % Plt Count (160-400) X10*3/uL MPV (9.4-12.3) fL Immature Gran % (Auto) (0.0-0.4) % Neut % (Auto) (45-73) % Lymph % (Auto) (20-40) % [place] % (Auto) (2-11) % Eos % (Auto) (0-4) % Baso % (Auto) (0-2) % Lymph # (Auto) (1.2-4.9) X10*3/uL [place] # (Auto) (0.1-1.2) X10*3/uL Eos # (Auto) (0.0-0.4) X10*3/uL Baso # (Auto) (0.0-0.2) X10*3/uL Abs Immat Gran (auto) (0.00-0.03) X10*3/uL Absolute Neuts (auto) (2.0-8.3) x10*3/uL Absolute Nucleated RBC (0.0-0.012) X10*3/uL Nucleated RBC % (auto) (0.0-0.2) /100WBC Sodium 140 (135-145) mmol/L Potassium 3.5 D (3.3-5.1) mmol/L Chloride 100 (96-108) mmol/L Carbon Dioxide 31 H (22-29) mmol/L Anion Gap 13 (12-20) BUN (9-16) mg/dL Creatinine (0.5-1.4) mg/dL Estim Creat Clear Calc Estimated GFR Random Glucose (60-115) mg/dL Calcium (8.4-10.2) mg/dL Magnesium (1.6-2.6) mg/dL Total Bilirubin (0.0-1.0) mg/dL Direct Bilirubin (0.0-0.5) mg/dL AST (5-31) U/L ALT (0-31) U/L Alkaline Phosphatase (39-117) U/L Troponin I High Sens (<3.5-17.0) ng/L Total Protein (6.5-8.0) g/dL Albumin (3.5-5.0) g/dL Lipase (8-78) U/L Urine Color Yellow Urine Appearance Clear Urine pH 7.0 (5.0-9.0) Ur Specific [place] 1.010 (1.005-1.025) Urine Protein Negative (Neg-Trace) mg/dL Urine Glucose (UA) Negative (Negative) mg/dL Urine Ketones Negative (Negative) mg/dL Urine Blood Negative (Negative) Urine Nitrite Negative (Negative) Ur Leukocyte Esterase Trace H (Negative) Urine RBC 0-2 (0-2) /HPF Urine WBC 0-5 (0-5) /HPF Ur Squamous Epith Cells 0-2 (0-2) /HPF Urine Bacteria None Seen (None Seen) Hyaline Casts 0-2 (0-2) /LPF Influenza Type A (PCR) NEGATIVE (Negative) Influenza Type B (PCR) NEGATIVE (Negative) RSV RNA Qual (PCR) NEGATIVE (Negative) SARS-CoV-2 RNA (RT-PCR) NEGATIVE (Negative) Independent Interpretation I performed an independent interpretation of an: EKG Interpretation: Sinus bradycardia heart rate 52 beats per minute normal interval normal axis no acute ST-T changes no acute ischemia Discharge Plan Discharge Clinical Impression: Weakness, Hypokalemia Patient Disposition: Home, Self-Care Instructions: Hypokalemia (ED), Weakness (ED) Additional Instructions: Drink plenty of fluid Have extra bananas/orange juice daily Recheck potassium next week today , your potassium level was 2.7 Interventions: ED Discharge Assessment Last Done: 05/28/23 01:45 Discharge Date/Time: 05/28/23 01:46
[2023-05-27 18:25] VITALS: BP 130/90; BP 152/86; PULSE 61; PULSE 64; RESP 16; TEMP 35.9; O2SAT 96; O2SAT 97; BMI 23.4
--- NOTE | 2023-05-27 18:30 | ECG_ITS ---
Test Reason : dizziness Blood Pressure : / mmHG Vent. Rate : 052 BPM Atrial Rate : 052 BPM P-R Int : 144 ms QRS Dur : 092 ms QT Int : 436 ms P-R-T Axes : -25 034 148 degrees QTc Int : 405 ms Sinus bradycardia Low voltage QRS Lateral infarct , age undetermined Abnormal ECG No previous ECGs available Referred By: Bette Sánchez Electronically Signed By:JOE YOUNG
--- NOTE | 2023-05-27 20:06 | MHC.EDTECH ---
P[T EKG TAKEN AND WAS READ BY PROVIDER ,RSV/COVID SWAB COLLECTED ,URINE SAMPLE COLLECTED AND BLOOD DRAWN ALL SENT TO LAB,PT WAS GIVEN A WARM BLANKET .
[2023-05-27 20:08] LABS: MANUAL DIFF FLAG NO
[2023-05-27 20:15] LABS: Appearance Urine Clear; Color Urine Yellow; Glucose Urine UA Negative (Negative); Leukocyte Esterase Urine Trace (Negative); Nitrite Urine Negative (Negative); UMIC TRIGGER UACC YES; Urine Blood Negative (Negative); Urine Ketones Negative (Negative); Urine Protein Negative (Neg-Trace)
[2023-05-27 20:19] LABS: Basophils Percent Auto 0.5 % (0-2); Eosinophils Absolute Auto 0.1 X10*3/uL (0.0-0.4); Eosinophils Percent Auto 0.8 % (0-4); Hematocrit 37.6 % (37.0-47.0); Hemoglobin 12.6 g/dl (12.0-16.0); Imm Gran Abs Auto 0.02 X10*3/uL (0.00-0.03); Imm Gran Pct Auto 0.3 % (0.0-0.4); Lymphocytes Absolute Auto 1.7 X10*3/uL (1.2-4.9); Lymphocytes Percent Auto 22.4 % (20-40); Mean Corpuscular HGB Conc 33.5 g/dl (31.0-35.0); Mean Corpuscular Hemoglobin 29.9 pg (27.0-33.0); Mean Corpuscular Volume 89.3 fL (80.0-98.0); Mean Platelet Volume 11.3 fL (9.4-12.3); Monocytes Absolute Auto 0.6 X10*3/uL (0.1-1.2); Monocytes Percent Auto 7.7 % (2-11); Neutrophils Absolute Auto 5.1 x10*3/uL (2.0-8.3); Neutrophils Percent Auto 68.3 % (45-73); Platelet Count 300 X10*3/uL (160-400); Red Blood Count 4.21 X10*6/uL (4.20-5.50); White Blood Count 7.5 X10*3/uL (4.8-10.8)
[2023-05-27 20:23] LABS: Bacteria Urine None Seen (None Seen); Hyaline Casts Urine 0-2 /LPF (0-2); RBC Urine 0-2 /HPF (0-2); Squamous Epithelial Cell Urine 0-2 /HPF (0-2); WBC Urine 0-5 /HPF (0-5)
[2023-05-27 20:36] LABS: Alanine Aminotransferase 13 U/L (0-31); Albumin Level 4.9 g/dL (3.5-5.0); Alkaline Phosphatase 87 U/L (39-117); Anion Gap 15 (12-20); Aspartate Amino Transferase 29 U/L (5-31); Bilirubin Direct 0.2 mg/dL (0.0-0.5); Bilirubin Total 0.4 mg/dL (0.0-1.0); Blood Urea Nitrogen 17 mg/dL (9-16); Carbon Dioxide 30 mmol/L (22-29); Chloride 94 mmol/L (96-108); Creatinine Clr Calc Pharmacy 58.6; Estimated Glomerular Filt Rate > 60; Glucose Random 137 mg/dL (60-115); Lipase 11 U/L (8-78); Magnesium 2.4 mg/dL (1.6-2.6); Potassium 2.7 mmol/L (3.3-5.1); Sodium 136 mmol/L (135-145); Total Protein 8.5 g/dL (6.5-8.0)
[2023-05-27 20:46] LABS: Troponin-I High Sensitivity < 2.7 ng/L (<3.5-17.0)
[2023-05-27 21:03] LABS: Influenza A PCR NEGATIVE (Negative); Influenza B PCR NEGATIVE (Negative); Resp Syncy Virus RNA Qual PCR NEGATIVE (Negative); SARS COV2 PCR INHOUSE NEGATIVE (Negative)
[2023-05-27 21:34] VITALS: BP 142/68; PULSE 62; RESP 14; TEMP 36.6; O2SAT 97
[2023-05-27] MEDS: Potassium Bicarbonate/Cit AC 25 MEQ TABLET.EFF 50 MEQ PO (22:55)
[2023-05-27] MEDS: 0.9 % Sodium Chloride 1,000 ML 999 ML IV (22:55)
--- NOTE | 2023-05-27 23:24 | PC.NURSE ---
Assumed care of pt. pt stating symptoms resolving, able to ambulate to bathroom with no distress. IVF running, no acute distress at this time.
[2023-05-28 00:55] LABS: Anion Gap 13 (12-20); Carbon Dioxide 31 mmol/L (22-29); Chloride 100 mmol/L (96-108); Potassium 3.5 mmol/L (3.3-5.1); Sodium 140 mmol/L (135-145)
[2023-05-28 01:09] VITALS: BP 151/78; PULSE 55; RESP 16; TEMP 36.6; O2SAT 98
== END 2023-05-28 01:46 | disposition home or self-care (01) ==
PROVIDERS: Physician Assistant Medical; Emergency Provider Internal Medicine
DX: R53.1 Weakness (principal); E87.6 Hypokalemia; Z20.822 Contact with and (suspected) exposure to COVID-19; Z20.828 Contact with and (suspected) exposure to other viral communicable diseases; I10 Essential (primary) hypertension; Z79.899 Other long term (current) drug therapy
CPT/HCPCS: 0241U; 36415; 80048; 80051; 80076; 81001; 83690; 83735; 84484; 85025; 93005; 96360; 99284; 99285

== ENCOUNTER 2023-07-07 14:10 | Outpatient (REF) | payer MEDICAID, SELFPAY ==
[2023-07-07 16:08] LABS: Free T4 (Free Thyroxine) 1.04 ng/dL (0.71-1.85); Thyroid Stimulating Hormone 0.96 uIU/mL (0.32-4.0)
[2023-07-08 23:37] LABS: Triiodothyronine T3 Free 3.3 pg/mL (2.3-4.2)
[2023-07-12 08:14] LABS: Thyrotropin Receptor Antibody <1.00 IU/L (<=2.00)
== END 2023-07-07 14:11 | disposition home or self-care (01) ==
LOC: HO.LAB 14:10
PROVIDERS: PCP Internal Medicine; Visit Provider Internal Medicine Endocrinology, Diabetes & Metabolism
DX: E04.2 Nontoxic multinodular goiter (principal)
CPT/HCPCS: 36415; 83520; 84439; 84443; 84481

== ENCOUNTER 2023-07-07 14:10 | Outpatient (AMB) | payer MEDICAID, SELFPAY ==
--- NOTE | 2023-07-07 14:15 | MHC.OFFVIS ---
Intake Vital Signs 07/07/23 14:18 Height 5 ft 1 in Weight 127 lb 6.835 oz BMI 24.1 BP 100/82 Blood Pressure Location Lt brachial Position Sitting Pulse 65 Pulse Source Pulse Oximeter Intake Visit Reasons: Thyroid nodule, appt confirmed Intake Note: New patient present today for Thyroid Nodule. Accompanied by: Self / Same As Patient Allergies No Known Allergies [No Known Allergies*] Allergy (Verified 07/07/23 14:21) Medication List - Last Reconciled 07/07/23 by Toi Islas MD amlodipine 5 mg PO DAILY cholecalciferol (vitamin D3) 25 mcg PO DAILY cyclobenzaprine 10 mg PO BEDTIME diphenhydramine HCl (Benadryl) 50 mg (2 x 25 mg) PO Q8H PRN duloxetine (Cymbalta) 30 mg PO DAILY erythromycin 0.5 inches ophthalmic (eye) TID 1 week gabapentin 100 mg PO BEDTIME hydrochlorothiazide 25 mg PO DAILY ibuprofen 600 mg PO Q6H PRN metoprolol succinate ER 25 mg PO BID naproxen (EC-Naprosyn) 500 mg PO Q12H omega-3 fatty acids (Fish Oil Concentrate) 1,000 mg PO DAILY HPI HPI Comments History of Present Illness Details 63 YO F with who is seen in consultation for multinodular thyroid at the request of PCP. Was initially diagnosed with multinodular thyroid in 4-5 mos ago with thyroid US revealing MNG . Currently denies any dysphagia or hoarseness of voice. Denies sensation of swelling in the neck or difficulty breathing while lying flat. Occasionally has tenderness in the neck. Occasional palpitations, no tremors, no weight loss, no frequent bowel movements. Denies any ocular complaints, blurred or double vision. Has hair loss, + dry skin, -heat or cold intolerance, - weight gain,- confusion. Denies any history of head or neck irradiation. Denies any family history of thyroid cancer. Had biopsy of nodules in the past. Thyroid US:EXAMINATION: US THYROID CLINICAL INFORMATION: Thyroiditis, tender neck, lymphadenopathy. COMPARISON: CT soft tissue neck with intravenous contrast dated 01/27/2023. TECHNIQUE: Linear transducer grayscale and color Doppler examination with attention to the region of the thyroid. FINDINGS: SIZE: Measurements of the thyroid lobes and nodules are given in sagittal, anteroposterior and transverse dimensions respectively. Right Thyroid Lobe: 4.7 x 1.2 x 1.6 cm, volume 4.7 mL. Parenchyma: The gland echotexture is heterogeneous. Thyroid vascularity is normal. Left Thyroid Lobe: 3.9 x 1.3 x 1.4 cm, volume 3.7 mL. Parenchyma: The gland echotexture is heterogeneous. Thyroid vascularity is normal. Isthmus: 0.2 cm in maximum AP dimension. Estimated total number of nodules greater than or equal to 1 cm: 1. [employer] nodules are described as follows: 1. Location: Right superior. Size: 0.6 x 0.3 x 0.6 cm, volume 0.06 mL. Nodule characteristics: Composition: Solid/almost completely solid (2). Echogenicity: Hypoechoic (2). Shape: Not taller than wide (0). Margins: Ill-defined (0). Echogenic Foci: None (0). ACR TI-RADS total points: 4 ACR TI-RADS category: 4 2. Location: Right superior. Size: 1.1 x 0.7 x 0.7 cm, volume 0.27 mL. Nodule characteristics: Composition: Solid/almost completely solid (2). Echogenicity: Hypoechoic (2). Shape: Not taller than wide (0). Margins: Smooth (0). Echogenic Foci: Punctate echogenic foci (3). ACR TI-RADS total points: 7 ACR TI-RADS category: 5 3. Location: Right inferior. Size: 0.5 x 0.3 x 0.5 cm, volume 0.03 mL. Nodule characteristics: Composition: Mixed cystic and solid (1). Echogenicity: Hypoechoic (2). Shape: Not taller than wide (0). Margins: Smooth (0). Echogenic Foci: Punctate echogenic foci (3). ACR TI-RADS total points: 6 ACR TI-RADS category: 4 4. Location: Left mid. Size: 0.5 x 0.3 x 0.4 cm, volume 0.04 mL. Nodule characteristics: Composition: Mixed cystic and solid (1). Echogenicity: Hypoechoic (2). Shape: Not taller than wide (0). Margins: Ill-defined (0). Echogenic Foci: Punctate echogenic foci (3). ACR TI-RADS total points: 6 ACR TI-RADS category: 4 5. Location: Left mid. Size: 0.4 x 0.3 x 0.3 cm, volume 0.02 mL. Nodule characteristics: Composition: Cystic(0). ACR TI-RADS total points: 0 ACR TI-RADS category: 1 NODES: No lymphadenopathy is seen in the tissue surrounding the thyroid gland. US/US thyroid IMPRESSION: . Multinodular goiter with only one mass over a centimeter in size measuring 1.1 cm. This mass is #2 above, TI-RADS category 5 and FNA is recommended. Labs: [facility] Medical History (Updated 07/07/23 @ 14:25 by Toi Islas MD) Multinodular goiter (nontoxic) Cervical spondylosis Fibromyalgia Ganglion cyst Osteoarthritis Vitamin D deficiency Osteopenia HTN (hypertension) Surgical History S/P foot surgery, right Hx of tubal ligation Hx of hysterectomy Family History Father HTN (hypertension) Mother CVD (cardiovascular disease) Social History Household Members: Spouse and Children Housing: Apartment Alcohol intake: never Physical Exam Vital Signs: Last Vital Signs Pulse 65 07/07/23 14:18 BP 100/82 07/07/23 14:18 BMI result Body Mass Index 24.1 HEENT reveals absence of lid lag , stare or proptosis or eyebrow loss. Thyroid gland measure gms . No nodules or tenderness palpated. There is no cervical adenopathy palpated. Lungs CTA. Heart S1, S2 Reg R/R -M/R/G. Abdominal exam benign. Skin exam reveals absence of dryness or thyroid dermopathy or vitiligo. Nail exam reveals absence of thyroid acropachy or oncholysis. Neurologic exam reveals 2+ reflexes . Muscle Strength is 5/5 proximally. There are no tremors in upper extremities. Assessment & Plan Assessment & Plan (1) Multinodular goiter (nontoxic): Code(s): E04.2 - Nontoxic multinodular goiter Plan: This 63-year-old female with a history of multinodular goiter with dominant right thyroid nodule meeting criteria for FNA. TSH is slightly suppressed. Will obtain iodine-123 uptake and scan to determine if nodule is hot. If nodule does not take up iodine, it may be amenable to FNA Orders: Orders Triiodothyronine T3 Free Today E04.2 - Nontoxic multinodular goiter Thyrotropin Receptor Antibody Today E04.2 - Nontoxic multinodular goiter NM thyroid w uptake Today E04.2 - Nontoxic multinodular goiter Free T4 (Free Thyroxine) Today E04.2 - Nontoxic multinodular goiter Thyroid Stimulating Hormone Today E04.2 - Nontoxic multinodular goiter Coding Level of Care Code New Pt Level 4 (92612) Diagnoses Multinodular goiter (nontoxic) E04.2
[2023-07-07 14:18] VITALS: BP 100/82; PULSE 65; BMI 24.1
== END 2023-07-07 14:40 | disposition home or self-care (01) ==
PROVIDERS: PCP Internal Medicine; Visit Provider Internal Medicine Endocrinology, Diabetes & Metabolism
DX: E04.2 Nontoxic multinodular goiter (principal)
CPT/HCPCS: 99204

== ENCOUNTER → 2023-08-06 09:12 | Outpatient (REF) | payer MEDICAID, SELFPAY ==
--- NOTE | ~2023-08-06 | NM_ITS ---
EXAMINATION: THYROID UPTAKE AND SCAN CLINICAL INFORMATION: Nontoxic multinodular goiter. COMPARISON: CT of the soft tissue neck done on 01/27/2023 and ultrasound of the thyroid gland done on 02/19/2023. TECHNIQUE: Following the oral administration of 293 microcuries of I-123 sodium iodide, thyroid uptake was performed and expressed as a percentage of the administrated dose. Gamma scintillation camera images of the thyroid in the anterior and right and left anterior oblique views were obtained using a pinhole collimator following the administration of 10.0 mCi Tc-99m pertechnetate. FINDINGS: The uptake is 6.11% at 4 hours and 14.62% at 24 hours (Normal radioiodine uptake at 4 to 6 hours is about 5-15% and at 24 hours is 10% to 30%). The radioiodine uptake is normal. The radiopertechnetate thyroid scintigram demonstrates the thyroid gland to be normal in size, shape, and position. Appears asymmetrically prominent, shows a photopenic defect at mid to inferior pole The left lobe of the thyroid gland appear unremarkable. Previous sonographic detected 2 subcentimeter nodules seen at the mid part of the left lobe are not reproduced in the current study likely secondary to their small size. The right lobe of the thyroid gland shows a photopenic defect at mid to inferior pole consistent with a cold nodule likely corresponds to a 0.5 cm nodule seen on prior sonographic images. Note is made of a relatively hyperactive/hot nodule at mid pole which may or may not correspond to the dominant right superior 1.1 cm nodule seen on prior sonographic images. The trapping function appears normal. NM/NM thyroid w uptake IMPRESSION: 1. Normal radioiodine uptake. 2. The left lobe of the thyroid gland scintigraphically appear unremarkable without evidence of any superimposed discrete hot or cold nodules. 3. The right lobe of the thyroid gland is asymmetrically prominent, shows presence of both cold and hot nodules at mid to inferior part of the gland.
== END ==
LOC: HO.NUCMED 09:12
PROVIDERS: PCP Internal Medicine; Visit Provider Internal Medicine Endocrinology, Diabetes & Metabolism
DX: E04.2 Nontoxic multinodular goiter (principal)
CPT/HCPCS: 78014; A9512; A9516

== ENCOUNTER 2023-09-21 18:06 | Emergency (ER) | payer MEDICAID, SELFPAY ==
--- NOTE | ~2023-09-21 | CT_ITS ---
EXAMINATION: CT HEAD WITHOUT CONTRAST CLINICAL INFORMATION: Dizziness and headache. COMPARISON: 03/06/2015 TECHNIQUE: Contiguous axial imaging was performed from the skull base to vertex without intravenous administration of contrast. This CT examination was performed using dose optimization techniques as appropriate, variously including the following: *Automated exposure control *Adjustment of mA and/or kV according to patient size (this includes techniques or standardized protocols for targeted exams where dose is matched to indication/reason for exam; i.e. extremities or head) *Use of iterative reconstruction technique DLP: 562 mGy-cm FINDINGS: The lateral, third and fourth ventricles are normally outlined. The cortical sulci and basal cisterns are normally outlined as well. There is no acute territorial defect, hemorrhage or midline shift. The extra-axial spaces are unremarkable. Calvarium: Intact. Maxilla facial sinuses and mastoids: Clear as visualized. CT/CT head/brain wo IV con IMPRESSION: No acute intracranial pathology.
--- NOTE | ~2023-09-21 | XR_ITS ---
EXAMINATION: XR CHEST CLINICAL INFORMATION: Chest pain. COMPARISON: 05/03/2020 TECHNIQUE: Frontal view of the chest was obtained. FINDINGS: The lung volumes are low. The cardiomediastinal silhouette is within normal limits and stable. There is no focal lung consolidation or pleural effusion. The bony structures and soft tissues are unremarkable. XR/XR chest 1V IMPRESSION: Low lung volumes. No acute cardiopulmonary process.
[2023-09-21 18:22] VITALS: BP 132/75; PULSE 67; RESP 18; TEMP 36.8; O2SAT 99; BMI 24.3
--- NOTE | 2023-09-21 18:22 | ECG_ITS ---
Test Reason : CHEST PRESSURE Blood Pressure : / mmHG Vent. Rate : 062 BPM Atrial Rate : 062 BPM P-R Int : 154 ms QRS Dur : 086 ms QT Int : 420 ms P-R-T Axes : 027 031 056 degrees QTc Int : 426 ms Normal sinus rhythm Normal ECG When compared with ECG of 03-MAY-2020 18:22, No significant change was found Referred By: Jennifer Marroquin Electronically Signed By:LUISANA YANEZ
--- NOTE | 2023-09-21 18:23 | ED_ITS ---
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 as per patient patient is also taking amlodipine 5 mg orally only if the blood pressure is high. For the past 2 days patient feels dizziness and generalized weakness and today patient felt chest pain localized to the left chest with no radiation with no other associated symptoms. Related Data Home Medications Medication Instructions Recorded Confirmed amlodipine 5 mg tablet 5 mg PO DAILY 12/13/20 cholecalciferol (vitamin D3) 25 25 mcg PO DAILY 12/13/20 mcg (1,000 unit) capsule cyclobenzaprine 10 mg tablet 10 mg PO BEDTIME 12/13/20 duloxetine 30 mg capsule,delayed 30 mg PO DAILY 12/13/20 release (Cymbalta) gabapentin 100 mg capsule 100 mg PO BEDTIME 12/13/20 hydrochlorothiazide 25 mg tablet 25 mg PO DAILY 12/13/20 metoprolol succinate 25 mg 25 mg PO BID 12/13/20 tablet,extended release 24 hr naproxen 500 mg tablet,delayed 500 mg PO Q12H 12/13/20 release (EC-Naprosyn) omega-3 fatty acids 1,000 mg 1,000 mg PO DAILY 12/13/20 capsule (Fish Oil Concentrate) Previous Rx's Medication Instructions Recorded diphenhydramine HCl 25 mg capsule 50 mg (2 x 25 mg) PO Q8H PRN 11/20/22 (Benadryl) allergy symptoms #10 caps erythromycin 5 mg/gram (0.5 %) eye 0.5 inch ophthalmic (eye) TID 1 11/20/22 ointment week #3.5 grams ibuprofen 600 mg tablet 600 mg PO Q6H PRN fever or pain 01/27/23 #30 tabs Allergies Allergy/AdvReac Type Severity Reaction Status Date / Time No Known Allergies Allergy Verified 08/06/23 13:56 [No Known Allergies*] Review of Systems 2 Review of Systems: All other systems are reviewed and are negative Constitutional: Reports as per HPI and Reports no additional constitutional complaints Eyes: Reports as per HPI and Reports no additional eye complaints Reports system reviewed and no additional complaints, except as documented Cardiovascular: Reports as per HPI and Reports no additional cardiovascular complaints Respiratory: Reports as per HPI and Reports no additional respiratory complaints Gastrointestinal: Reports as per HPI and Reports no additional gastrointestinal complaints Genitourinary: Reports no additional female genitourinary complaints Musculoskeletal: Reports no additional musculoskeletal complaints Skin/Breast: Reports system reviewed and no additional complaints, except as docu Psychiatric: Reports no additional psychiatric complaints Endocrine: Reports no additional endocrine complaints Hematologic/Lymphatic: Reports no additional hematologic/lymphatic complaints Allergic/Immunologic: Reports no additional allergic/immunologic complaints Reports system reviewed and no additional complaints, except as documented and Reports Abnormal speech present [facility] Past Medical History Medical History Multinodular goiter (nontoxic) Cervical spondylosis Fibromyalgia Ganglion cyst Osteoarthritis Vitamin D deficiency Osteopenia HTN (hypertension) Surgical History S/P foot surgery, right Hx of tubal ligation Hx of hysterectomy Family History Family History Father HTN (hypertension) Mother CVD (cardiovascular disease) Social History Social History Household Members: Spouse and Children Housing: Apartment Alcohol intake: never Advance Directives: No Advance Directives Information Provided: Yes Physical Exam ED Vital Signs: Vital Signs - 24 hr 09/21/23 18:22 09/21/23 21:46 09/21/23 22:24 Temperature 98.3 F 97.7 F Pulse Rate 67 63 61 Respiratory Rate 18 17 16 Blood Pressure 132/75 153/79 H 132/76 Pulse Oximetry 99 98 Oxygen Delivery Method Room Air Room Air Room Air Oxygen Flow Rate 97 BMI result Body Mass Index 24.3 Vital signs have been reviewed and appear to be correct. Blood pressure elevated. Heart rate normal. Respiratory rate normal. Temperature normal. Oxygen saturation normal. Appearance: Alert. Oriented X3. No acute distress. Head: Normal external exam. Normocephalic. Atraumatic. No Pierson signs noted. No raccoon eyes noted Eyes: PERRLA. EOMI. Conjunctiva and sclera normal. Eyelids normal. ENT: TM's Normal. Pharynx normal. Uvula midline. Moist mucous membranes. No trismus noted. No drooling noted. No muffled voice noted. Neck: Normal inspection. Neck supple. FROM. No adenopathy. Thyroid Normal. No meningeal signs. No neck mass noted. CVS: Normal heart rate and rhythm. Heart sound normal. No murmurs noted. Pulses normal throughout. Respiratory: No respiratory distress. Painless inspiration. Breath sounds normal. No wheezes/rales/rhonchi noted. Chest nontender. No accessory muscle usage noted or decreased air movement noted. Abdomen: Soft and nontender. Bowel sounds normal in all 4 quadrants. No distention noted. No organomegaly noted. No visible injury noted. Back: No CVA tenderness. Full range of motion noted. Skin: Skin warm and dry. Normal skin color. Normal skin turgor. No rashes/lesions/lacerations noted. Extremities: No lower extremity edema. Extremities exhibit normal range of motion. Extremities nontender. Neuro: Oriented X 3. Cranial nerve exam: II-XII are grossly intact No motor deficit. No sensory deficit. Reflexes normal. Course Course Course Narrative: This is an RME: Additional HPI, ROS, PE not included below will be deferred to primary provider. 63 yo f hx of htn med compliant presents w/ systolic presures at home of 180s, 190s. Slight chest pressure. No headche. Plan- labs, ekg Reevaluation(s) Reevaluation #1: A 63-year-old female with history of hypertension on hydrochlorothiazide daily and amlodipine p.r.n. came in for the last 2 days with high blood pressure and feeling dizziness with chest pain, patient has unremarkable workup in the emergency department, was instructed to follow-up with her senior account representative/PCP for better management of BP. Time: 23:30 Medical Decision Making Differential Diagnosis Differential Diagnoses: The differential diagnosis associated with the presentation includes (Hypertensive urgency, hypertensive emergency, central hypertension, electrolyte abnormality, ACS, severe anemia.) Admission/Observation Consideration of admission/observation: Escalation of care including admission/observation considered Lab Data MDM Lab Attestation statement: I reviewed the patient's lab results. 09/21/23 18:40 09/21/23 18:40 Labs: Lab Results 09/21/23 Range/Units 18:40 WBC 6.6 (4.8-10.8) X10*3/uL RBC 4.33 (4.20-5.50) X10*6/uL Hgb 12.8 (12.0-16.0) g/dl Hct 38.5 (37.0-47.0) % MCV 88.9 (80.0-98.0) fL MCH 29.6 (27.0-33.0) pg MCHC 33.2 (31.0-35.0) g/dl RDW 12.8 (11.0-16.0) % Plt Count 299 (160-400) X10*3/uL MPV 10.9 (9.4-12.3) fL Immature Gran % (Auto) 0.2 (0.0-0.4) % Neut % (Auto) 61.2 (45-73) % Lymph % (Auto) 30.2 (20-40) % Foster % (Auto) 7.0 (2-11) % Eos % (Auto) 0.9 (0-4) % Baso % (Auto) 0.5 (0-2) % Lymph # (Auto) 2.0 (1.2-4.9) X10*3/uL Foster # (Auto) 0.5 (0.1-1.2) X10*3/uL Eos # (Auto) 0.1 (0.0-0.4) X10*3/uL Baso # (Auto) 0.0 (0.0-0.2) X10*3/uL Abs Immat Gran (auto) 0.01 (0.00-0.03) X10*3/uL Absolute Neuts (auto) 4.0 (2.0-8.3) x10*3/uL Absolute Nucleated RBC 0.000 (0.0-0.012) X10*3/uL Nucleated RBC % (auto) 0.0 (0.0-0.2) /100WBC Sodium 135 (135-145) mmol/L Potassium 3.1 L (3.3-5.1) mmol/L Chloride 94 L (96-108) mmol/L Carbon Dioxide 30 H (22-29) mmol/L Anion Gap 14 (12-20) BUN 12 (9-16) mg/dL Creatinine 0.88 (0.5-1.4) mg/dL Estim Creat Clear Calc 55.1 Estimated GFR > 60 Random Glucose 113 (60-115) mg/dL Calcium 10.0 (8.4-10.2) mg/dL Magnesium 2.3 (1.6-2.6) mg/dL Total Bilirubin 0.5 (0.0-1.0) mg/dL AST 29 (5-31) U/L ALT 19 (0-31) U/L Alkaline Phosphatase 82 (39-117) U/L Troponin I High Sens 2.9 (<3.5-17.0) ng/L Total Protein 8.0 (6.5-8.0) g/dL Albumin 4.4 (3.5-5.0) g/dL Independent Interpretation I performed an independent interpretation of an: EKG (Normal sinus rhythm at 62 beats per minutes, normal axis deviation, normal intervals, no ST-T changes, no significant change from previous EKG.), Plain X-Ray (Chest: No acute intrathoracic pathology.) and CT Scan (Head: No acute intracranial pathology.) Radiology Impression Discussion of test interpretation with radiology: I have reviewed the radiologist's reading. Discharge Plan Discharge Clinical Impression: Atypical chest pain, Hypertension Patient Disposition: Home, Self-Care Instructions: Noncardiac Chest Pain (ED), Hypertension (ED) Prescriptions: No Action diphenhydramine HCl [Benadryl] 25 mg capsule 50 mg PO Q8H PRN (Reason: allergy symptoms) Qty: 10 0RF erythromycin 5 mg/gram (0.5 %) ointment 0.5 inch ophthalmic (eye) TID 7 Days Qty: 3.5 0RF ibuprofen 600 mg tablet 600 mg PO Q6H PRN (Reason: fever or pain) Qty: 30 0RF cholecalciferol (vitamin D3) 25 mcg (1,000 unit) capsule 25 mcg PO DAILY duloxetine [Cymbalta] 30 mg capsule,delayed release(DR/EC) 30 mg PO DAILY metoprolol succinate 25 mg tablet extended release 24 hr 25 mg PO BID amlodipine 5 mg tablet 5 mg PO DAILY gabapentin 100 mg capsule 100 mg PO BEDTIME cyclobenzaprine 10 mg tablet 10 mg PO BEDTIME hydrochlorothiazide 25 mg tablet 25 mg PO DAILY naproxen [EC-Naprosyn] 500 mg tablet,delayed release (DR/EC) 500 mg PO Q12H omega-3 fatty acids [Fish Oil Concentrate] 1,000 mg capsule 1,000 mg PO DAILY Referrals: Luz Marina Arias MD [Primary Care Provider] -
[2023-09-21 18:44] LABS: MANUAL DIFF FLAG NO
[2023-09-21 18:46] LABS: Basophils Percent Auto 0.5 % (0-2); Eosinophils Absolute Auto 0.1 X10*3/uL (0.0-0.4); Eosinophils Percent Auto 0.9 % (0-4); Hematocrit 38.5 % (37.0-47.0); Hemoglobin 12.8 g/dl (12.0-16.0); Imm Gran Abs Auto 0.01 X10*3/uL (0.00-0.03); Imm Gran Pct Auto 0.2 % (0.0-0.4); Lymphocytes Percent Auto 30.2 % (20-40); Mean Corpuscular HGB Conc 33.2 g/dl (31.0-35.0); Mean Corpuscular Hemoglobin 29.6 pg (27.0-33.0); Mean Corpuscular Volume 88.9 fL (80.0-98.0); Mean Platelet Volume 10.9 fL (9.4-12.3); Monocytes Absolute Auto 0.5 X10*3/uL (0.1-1.2); Neutrophils Percent Auto 61.2 % (45-73); Platelet Count 299 X10*3/uL (160-400); Red Blood Count 4.33 X10*6/uL (4.20-5.50); Red Cell Distribution Width 12.8 % (11.0-16.0); White Blood Count 6.6 X10*3/uL (4.8-10.8)
[2023-09-21 19:00] LABS: Alanine Aminotransferase 19 U/L (0-31); Albumin Level 4.4 g/dL (3.5-5.0); Alkaline Phosphatase 82 U/L (39-117); Anion Gap 14 (12-20); Aspartate Amino Transferase 29 U/L (5-31); Bilirubin Total 0.5 mg/dL (0.0-1.0); Blood Urea Nitrogen 12 mg/dL (9-16); Carbon Dioxide 30 mmol/L (22-29); Chloride 94 mmol/L (96-108); Creatinine Clr Calc Pharmacy 55.1; Estimated Glomerular Filt Rate > 60; Glucose Random 113 mg/dL (60-115); Magnesium 2.3 mg/dL (1.6-2.6); Potassium 3.1 mmol/L (3.3-5.1); Sodium 135 mmol/L (135-145)
[2023-09-21 19:07] LABS: Troponin-I High Sensitivity 2.9 ng/L (<3.5-17.0)
[2023-09-21 21:46] VITALS: BP 153/79; PULSE 63; RESP 17
[2023-09-21 22:24] VITALS: BP 132/76; PULSE 61; RESP 16; TEMP 36.5; O2SAT 98
[2023-09-21] MEDS: 0.9 % Sodium Chloride 1,000 ML 999 ML IV (22:41)
[2023-09-21 23:06] LABS: Troponin-I High Sensitivity < 2.7 ng/L (<3.5-17.0)
== END 2023-09-22 01:22 | disposition home or self-care (01) ==
PROVIDERS: Physician Assistant; Emergency Provider Emergency Medicine; PCP Internal Medicine
DX: R07.89 Other chest pain (principal); I10 Essential (primary) hypertension; Z79.899 Other long term (current) drug therapy
CPT/HCPCS: 36415; 70450; 71045; 80053; 83735; 84484; 85025; 93005; 96360; 99284; 99285

== ENCOUNTER → 2023-09-21 18:22 | Outpatient (BNV) | payer MEDICAID, SELFPAY | PROVIDERS: Emergency Provider Emergency Medicine; PCP Internal Medicine; Visit Provider Internal Medicine | DX: R07.89 Other chest pain (principal) | CPT/HCPCS: 93010 ==

== ENCOUNTER 2023-10-08 13:55 | Outpatient (REF) | payer MEDICAID, SELFPAY ==
[2023-10-08 16:39] LABS: Anion Gap 14 (12-20); Blood Urea Nitrogen 21 mg/dL (9-16); Calcium 9.9 mg/dL (8.4-10.2); Carbon Dioxide 31 mmol/L (22-29); Chloride 93 mmol/L (96-108); Estimated Glomerular Filt Rate > 60; Glucose Random 91 mg/dL (60-115); Magnesium 2.2 mg/dL (1.6-2.6); Potassium 3.1 mmol/L (3.3-5.1); Sodium 135 mmol/L (135-145)
== END 2023-10-08 13:56 | disposition home or self-care (01) ==
LOC: HO.HHCL 13:55
PROVIDERS: Visit Provider Internal Medicine
DX: I10 Essential (primary) hypertension (principal); E87.6 Hypokalemia
CPT/HCPCS: 36415; 80048; 83735

== ENCOUNTER 2023-11-03 11:58 | Outpatient (REF) | payer MEDICAID, SELFPAY ==
[2023-11-03 14:00] LABS: Potassium 3.6 mmol/L (3.3-5.1)
== END 2023-11-03 11:59 | disposition home or self-care (01) ==
LOC: HO.HHCL 11:58
PROVIDERS: Visit Provider Internal Medicine
DX: E87.6 Hypokalemia (principal)
CPT/HCPCS: 36415; 84132

== ENCOUNTER 2023-11-04 14:59 | Outpatient (AMB) | payer MEDICAID, SELFPAY ==
--- NOTE | 2023-11-04 15:02 | A.OFFVIS_ITS ---
Intake Vital Signs 11/04/23 15:05 Height 5 ft 1 in BP 120/80 Blood Pressure Location Lt brachial Position Sitting Pulse 78 Pulse Source Pulse Oximeter Intake Visit Reasons: goiter-confirmed Intake Note: Patient present today for goiter follow up visit. Service Delivery Management Consultant Required: No Accompanied by: Organ Donor Allergies No Known Allergies [No Known Allergies*] Allergy (Verified 11/04/23 15:10) Medication List - Last Reconciled 11/04/23 by Toi Islas MD amlodipine 5 mg PO DAILY cholecalciferol (vitamin D3) 25 mcg PO DAILY cyclobenzaprine 10 mg PO BEDTIME diphenhydramine HCl (Benadryl) 50 mg (2 x 25 mg) PO Q8H PRN duloxetine (Cymbalta) 30 mg PO DAILY erythromycin 0.5 inches ophthalmic (eye) TID 1 week gabapentin 100 mg PO BEDTIME hydrochlorothiazide 25 mg PO DAILY ibuprofen 600 mg PO Q6H PRN metoprolol succinate ER 25 mg PO BID naproxen (EC-Naprosyn) 500 mg PO Q12H omega-3 fatty acids (Fish Oil Concentrate) 1,000 mg PO DAILY HPI HPI Comments History of Present Illness Details 63 YO F with who is seen in consultatio n for multinodular thyroid at the request of PCP. Was initially diagnosed with multinodular thyroid in 4-5 mos ago with thyroid US revealing MNG . Currently denies any dysphagia or hoarseness of voice. Denies sensation of swelling in the neck or difficulty breathing while lying flat. Occasionally has tenderness in the neck. Occasional palpitations, no tremors, no weight loss, no frequent bowel movements. Denies any ocular complaints, blurred or double vision. Has hair loss, + dry skin, -heat or cold intolerance, - weight gain,- confusion. Denies any history of head or neck irradiation. Denies any family history of thyroid cancer. Had biopsy of nodules in the past. Thyroid US:EXAMINATION: US THYROID CLINICAL INFORMATION: Thyroiditis, tender neck, lymphadenopathy. COMPARISON: CT soft tissue neck with intravenous contrast dated 01/27/2023. TECHNIQUE: Linear transducer grayscale and color Doppler examination with attention to the region of the thyroid. FINDINGS: SIZE: Measurements of the thyroid lobes and nodules are given in sagittal, anteroposterior and transverse dimensions respectively. Right Thyroid Lobe: 4.7 x 1.2 x 1.6 cm, volume 4.7 mL. Parenchyma: The gland echotexture is heterogeneous. Thyroid vascularity is normal. Left Thyroid Lobe: 3.9 x 1.3 x 1.4 cm, volume 3.7 mL. Parenchyma: The gland echotexture is heterogeneous. Thyroid vascularity is normal. Isthmus: 0.2 cm in maximum AP dimension. Estimated total number of nodules greater than or equal to 1 cm: 1. 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 Location: Right superior. Size: 0.6 x 0.3 x 0.6 cm, volume 0.06 mL. Nodule characteristics: Composition: Solid/almost completely solid (2). Echogenicity: Hypoechoic (2). Shape: Not taller than wide (0). Margins: Ill-defined (0). Echogenic Foci: None (0). ACR TI-RADS total points: 4 ACR TI-RADS category: 4 2. Location: Right superior. Size: 1.1 x 0.7 x 0.7 cm, volume 0.27 mL. Nodule characteristics: Composition: Solid/almost completely solid (2). Echogenicity: Hypoechoic (2). Shape: Not taller than wide (0). Margins: Smooth (0). Echogenic Foci: Punctate echogenic foci (3). ACR TI-RADS total points: 7 ACR TI-RADS category: 5 3. Location: Right inferior. Size: 0.5 x 0.3 x 0.5 cm, volume 0.03 mL. Nodule characteristics: Composition: Mixed cystic and solid (1). Echogenicity: Hypoechoic (2). Shape: Not taller than wide (0). Margins: Smooth (0). Echogenic Foci: Punctate echogenic foci (3). ACR TI-RADS total points: 6 ACR TI-RADS category: 4 4. Location: Left mid. Size: 0.5 x 0.3 x 0.4 cm, volume 0.04 mL. Nodule characteristics: Composition: Mixed cystic and solid (1). Echogenicity: Hypoechoic (2). Shape: Not taller than wide (0). Margins: Ill-defined (0). Echogenic Foci: Punctate echogenic foci (3). ACR TI-RADS total points: 6 ACR TI-RADS category: 4 5. Location: Left mid. Size: 0.4 x 0.3 x 0.3 cm, volume 0.02 mL. Nodule characteristics: Composition: Cystic(0). ACR TI-RADS total points: 0 ACR TI-RADS category: 1 NODES: No lymphadenopathy is seen in the tissue surrounding the thyroid gland. US/US thyroid IMPRESSION: . Multinodular goiter with only one mass over a centimeter in size measuring 1.1 cm. This mass is #2 above, TI-RADS category 5 and FNA is recommended. Labs: [facility] Medical History Multinodular goiter (nontoxic) Cervical spondylosis Fibromyalgia Ganglion cyst Osteoarthritis Vitamin D deficiency Osteopenia HTN (hypertension) Surgical History S/P foot surgery, right Hx of tubal ligation Hx of hysterectomy Family History Father HTN (hypertension) Mother CVD (cardiovascular disease) Social History Household Members: Spouse and Children Housing: Apartment Alcohol intake: never Physical Exam HEENT reveals absence of lid lag , stare or proptosis or eyebrow loss. Thyroid gland measure 15 gms . No nodules or tenderness palpated. There is no cervical adenopathy palpated. Lungs CTA. Heart S1, S2 Reg R/R -M/R/G. Abdominal exam benign. Skin exam reveals absence of dryness or thyroid dermopathy or vitiligo. Nail exam reveals absence of thyroid acropachy or oncholysis. Neurologic exam reveals 2+ reflexes . Muscle Strength is 5/5 proximally. There are no tremors in upper extremities. Assessment & Plan Assessment & Plan (1) Multinodular goiter (nontoxic): Code(s): E04.2 - Nontoxic multinodular goiter Plan: This 63-year-old female with a history of multinodular goiter with dominant right thyroid nodule meeting criteria for FNA. TSH is now normalized and patient appears to be clinically biochemically euthyroid. Iodine scan did not show hot or cold nodules Plan is to discuss options of treatment with the patient including sending patient for repeat ultrasound. If nodule has grown in right midpole will continues to meet criteria for FNA, will then send for FNA Orders: Orders US thyroid Today E04.2 - Nontoxic multinodular goiter Coding Level of Care Code Est Pt Level 3 (22868) Diagnoses Multinodular goiter (nontoxic) E04.2
[2023-11-04 15:05] VITALS: BP 120/80; PULSE 78
== END 2023-11-04 15:27 | disposition home or self-care (01) ==
PROVIDERS: PCP Internal Medicine; Referring Provider Internal Medicine; Visit Provider Internal Medicine Endocrinology, Diabetes & Metabolism
DX: E04.2 Nontoxic multinodular goiter (principal)
CPT/HCPCS: 99213

== ENCOUNTER → 2023-11-04 14:59 | Outpatient (BNVA) | payer MEDICAID, SELFPAY | PROVIDERS: PCP Internal Medicine; Visit Provider Internal Medicine Endocrinology, Diabetes & Metabolism | DX: E04.2 Nontoxic multinodular goiter (principal) | CPT/HCPCS: 99212 ==

== ENCOUNTER 2023-11-19 14:43 | Outpatient (REF) | payer MEDICAID, SELFPAY ==
--- NOTE | ~2023-11-19 | US_ITS ---
EXAMINATION: US THYROID CLINICAL INFORMATION: Nontoxic multinodular goiter. COMPARISON: Thyroid ultrasound 02/19/2023. CT soft tissue neck 01/27/2023. TECHNIQUE: Linear transducer grayscale and color Doppler examination with attention to the region of the thyroid. FINDINGS: SIZE: Measurements of the thyroid lobes and nodules are given in sagittal, anteroposterior and transverse dimensions respectively. Right Thyroid Lobe: 4.7 x 1.2 x 1.6 cm, volume 4.4 mL. Previously 4.7 x 1.2 x 1.6 cm, volume 4.7 mL. Parenchyma: The gland echotexture is homogeneous. Thyroid vascularity is normal. Left Thyroid Lobe: 4.0 x 1.4 x 1.4 cm, volume 4.0 mL. Previously 3.9 x 1.3 x 1.4 cm, volume 3.7 mL. Parenchyma: The gland echotexture is homogeneous. Thyroid vascularity is normal. Isthmus: 0.2 cm in maximum AP dimension. Previously 0.2 cm. Estimated total number of nodules greater than or equal to 1 cm: 1. Knuckle Bender nodules are described as follows: 1. Location: Right upper pole. Size: 0.6 x 0.4 x 0.6 cm, volume 0.06 mL. Previously: 0.6 x 0.3 x 0.6 cm, volume 0.06 mL. Nodule characteristics: Composition: Solid/almost completely solid (2). Echogenicity: Hypoechoic (2). Shape: Not taller than wide (0). Margins: Ill-defined (0). Echogenic Foci: None (0). ACR TI-RADS total points: 4. Previous: 4. ACR TI-RADS category: 4. Previous: 4. Significant change in size (>/= 20% in 2 dimensions and minimal increase of 2 mm or 50% or greater increase in volume): No Change in features: No Change in ACR TI-RADS risk category: No 2. Location: Right upper pole. Size: 1.1 x 0.6 x 0.8 cm, volume 0.3 mL. Previously: 1.1 x 0.7 x 0.7 cm, volume 0.27 mL. Nodule characteristics: Composition: Solid/almost completely solid (2). Echogenicity: Hypoechoic (2). Shape: Not taller than wide (0). Margins: Smooth (0). Echogenic Foci: Punctate echogenic foci (3). ACR TI-RADS total points: 7. Previous: 7. ACR TI-RADS category: 5. Previous: 5. Significant change in size (>/= 20% in 2 dimensions and minimal increase of 2 mm or 50% or greater increase in volume): No Change in features: No Change in ACR TI-RADS risk category: No 3. Location: Right lower pole. Size: 0.4 x 0.2 x 0.4 cm, volume 0.02 mL. Previously: 0.5 x 0.3 x 0.5 cm, volume 0.03 mL. Nodule characteristics: Composition: Solid/almost completely solid (2). Echogenicity: Hypoechoic (2). Shape: Not taller than wide (0). Margins: Ill-defined (0). Echogenic Foci: None (0). ACR TI-RADS total points: 4. Previous: 6. ACR TI-RADS category: 4. Previous: 4. Significant change in size (>/= 20% in 2 dimensions and minimal increase of 2 mm or 50% or greater increase in volume): No Change in features: No Change in ACR TI-RADS risk category: No 4. Location: Left mid pole. Size: 0.3 x 0.2 x 0.2 cm, volume 0.006 mL. Previously: 0.4 x 0.3 x 0.3 cm, volume 0.02 mL. Nodule characteristics: Composition: Cystic(0). ACR TI-RADS total points: 0. Previous: 0. ACR TI-RADS category: 1. Previous: 1. Significant change in size (>/= 20% in 2 dimensions and minimal increase of 2 mm or 50% or greater increase in volume): No Change in features: No Change in ACR TI-RADS risk category: No NODES: No lymphadenopathy is seen in the tissue surrounding the thyroid gland. US/US thyroid IMPRESSION: 1.1 cm right upper TR5 thyroid nodule again meets criteria for biopsy. Fine-needle aspiration recommended if not already performed. ACR TI-RADS RECOMMENDATION REFERENCE: Ultrasound-guided fine-needle aspiration, follow up ultrasound, no further followup. * TR1 (0 point) and TR2 (2 points): No FNA or followup * TR3 (3 points): FNA if more than or equal to 2.5 cm in maximum dimension, followup ultrasound in 1, 3 and 5 years if 1.5 to 2.4 cm in maximum dimension. * TR4 (4-6 points): FNA if more than or equal to 1.5 cm in maximum dimension, followup ultrasound in 1, 2, 3 and 5 years if 1 to 1.4 cm in maximum dimension. * TR5 (more than or equal to 7 points): FNA if more than or equal to 1 cm in maximum dimension, follow up ultrasound every year for 5 years if 0.5 to 0.9 cm in maximum dimension. * TR3, TR4 or TR5 nodules that are below the size threshold for followup receive no followup.
== END 2023-11-19 14:44 | disposition home or self-care (01) ==
LOC: HO.US 14:43
PROVIDERS: PCP Internal Medicine; Visit Provider Internal Medicine Endocrinology, Diabetes & Metabolism
DX: E04.2 Nontoxic multinodular goiter (principal)
CPT/HCPCS: 76536

== ENCOUNTER 2023-12-08 14:55 | Outpatient (REF) | payer MEDICAID, SELFPAY ==
[2023-12-08 17:02] LABS: Anion Gap 10 (12-20); Blood Urea Nitrogen 17 mg/dL (9-16); Calcium 10.1 mg/dL (8.4-10.2); Carbon Dioxide 32 mmol/L (22-29); Chloride 102 mmol/L (96-108); Cholesterol 204 mg/dL (<200); Estimated Glomerular Filt Rate > 60; Glucose Random 97 mg/dL (60-115); HDL Cholesterol 67 mg/dL (>40); LDL Cholesterol Calculated 120 mg/dL (<100); Potassium 3.9 mmol/L (3.3-5.1); Sodium 140 mmol/L (135-145); Triglycerides 85 mg/dL (<150)
[2023-12-08 17:07] LABS: Vitamin D 25-OH Total 39.7 ng/mL (>30)
[2023-12-08 20:33] LABS: Reflex LDLD? No
== END 2023-12-08 14:56 | disposition home or self-care (01) ==
LOC: HO.HHCL 14:55
PROVIDERS: Visit Provider Internal Medicine
DX: I10 Essential (primary) hypertension (principal); L65.9 Nonscarring hair loss, unspecified
CPT/HCPCS: 36415; 80048; 80061; 82306

== ENCOUNTER 2023-12-22 14:33 | Outpatient (AMB) | payer MEDICAID, SELFPAY ==
[2023-12-22 14:35] VITALS: BP 126/74; PULSE 71; BMI 24.9
--- NOTE | 2023-12-22 14:35 | MHC.OFFVIS ---
Intake Vital Signs 12/22/23 14:35 Height 5 ft 1 in Weight 131 lb 9.855 oz BMI 24.9 BP 126/74 Blood Pressure Location Lt brachial Position Sitting Pulse 71 Pulse Source Pulse Oximeter Intake Visit Reasons: Thyroid nodule-confirmed Intake Note: Patient presents today for Thyroid Nodule follow up. Car Pre Cooler Required: Yes Car Pre Cooler Language: Clinical Nursing Professor Name: Deanna medical staff Information Interpreted: non-clinical & clinical Accompanied by: Sister Allergies No Known Allergies [No Known Allergies*] Allergy (Verified 12/22/23 14:39) Medication List - Last Reconciled 12/22/23 by Toi Islas MD cholecalciferol (vitamin D3) 25 mcg PO DAILY cyclobenzaprine 10 mg PO BEDTIME duloxetine (Cymbalta) 30 mg PO DAILY erythromycin 0.5 inches ophthalmic (eye) TID 1 week gabapentin 100 mg PO BEDTIME ibuprofen 600 mg PO Q6H PRN losartan 50 mg PO DAILY metoprolol succinate ER 25 mg PO BID naproxen (EC-Naprosyn) 500 mg PO Q12H omega-3 fatty acids (Fish Oil Concentrate) 1,000 mg PO DAILY HPI HPI Comments History of Present Illness Details 63 YO F with who is seen in consultation for multinodular thyroid at the request of PCP. Was initially diagnosed with multinodular thyroid in 4-5 mos ago with thyroid US revealing MNG . Currently denies any dysphagia or hoarseness of voice. Denies sensation of swelling in the neck or difficulty breathing while lying flat. Occasionally has tenderness in the neck. Occasional palpitations, no tremors, no weight loss, no frequent bowel movements. Denies any ocular complaints, blurred or double vision. Has hair loss, + dry skin, -heat or cold intolerance, - weight gain,- confusion. Denies any history of head or neck irradiation. Denies any family history of thyroid cancer. Had biopsy of nodules in the past. Thyroid US:EXAMINATION: US THYROID CLINICAL INFORMATION: Thyroiditis, tender neck, lymphadenopathy. COMPARISON: CT soft tissue neck with intravenous contrast dated 01/27/2023. TECHNIQUE: Linear transducer grayscale and color Doppler examination with attention to the region of the thyroid. FINDINGS: SIZE: Measurements of the thyroid lobes and nodules are given in sagittal, anteroposterior and transverse dimensions respectively. Right Thyroid Lobe: 4.7 x 1.2 x 1.6 cm, volume 4.7 mL. Parenchyma: The gland echotexture is heterogeneous. Thyroid vascularity is normal. Left Thyroid Lobe: 3.9 x 1.3 x 1.4 cm, volume 3.7 mL. Parenchyma: The gland echotexture is heterogeneous. Thyroid vascularity is normal. Isthmus: 0.2 cm in maximum AP dimension. Estimated total number of nodules greater than or equal to 1 cm: 1. Criminal Defense Attorney nodules are described as follows: 1. Location: Right superior. Size: 0.6 x 0.3 x 0.6 cm, volume 0.06 mL. Nodule characteristics: Composition: Solid/almost completely solid (2). Echogenicity: Hypoechoic (2). Shape: Not taller than wide (0). Margins: Ill-defined (0). Echogenic Foci: None (0). ACR TI-RADS total points: 4 ACR TI-RADS category: 4 2. Location: Right superior. Size: 1.1 x 0.7 x 0.7 cm, volume 0.27 mL. Nodule characteristics: Composition: Solid/almost completely solid (2). Echogenicity: Hypoechoic (2). Shape: Not taller than wide (0). Margins: Smooth (0). Echogenic Foci: Punctate echogenic foci (3). ACR TI-RADS total points: 7 ACR TI-RADS category: 5 3. Location: Right inferior. Size: 0.5 x 0.3 x 0.5 cm, volume 0.03 mL. Nodule characteristics: Composition: Mixed cystic and solid (1). Echogenicity: Hypoechoic (2). Shape: Not taller than wide (0). Margins: Smooth (0). Echogenic Foci: Punctate echogenic foci (3). ACR TI-RADS total points: 6 ACR TI-RADS category: 4 4. Location: Left mid. Size: 0.5 x 0.3 x 0.4 cm, volume 0.04 mL. Nodule characteristics: Composition: Mixed cystic and solid (1). Echogenicity: Hypoechoic (2). Shape: Not taller than wide (0). Margins: Ill-defined (0). Echogenic Foci: Punctate echogenic foci (3). ACR TI-RADS total points: 6 ACR TI-RADS category: 4 5. Location: Left mid. Size: 0.4 x 0.3 x 0.3 cm, volume 0.02 mL. Nodule characteristics: Composition: Cystic(0). ACR TI-RADS total points: 0 ACR TI-RADS category: 1 NODES: No lymphadenopathy is seen in the tissue surrounding the thyroid gland. US/US thyroid IMPRESSION: . Multinodular goiter with only one mass over a centimeter in size measuring 1.1 cm. This mass is #2 above, TI-RADS category 5 and FNA is recommended. Labs: Recent ultrasound showed the continue presence of a right upper pole nodule for which FNA is recommended [facility] Medical History Multinodular goiter (nontoxic) Cervical spondylosis Fibromyalgia Ganglion cyst Osteoarthritis Vitamin D deficiency Osteopenia HTN (hypertension) Surgical History S/P foot surgery, right Hx of tubal ligation Hx of hysterectomy Family History Father HTN (hypertension) Mother CVD (cardiovascular disease) Social History Household Members: Spouse and Children Housing: Apartment Alcohol intake: never Physical Exam Vital Signs: Last Vital Signs Pulse 71 12/22/23 14:35 BP 126/74 12/22/23 14:35 BMI result Body Mass Index 24.9 HEENT reveals absence of lid lag , stare or proptosis or eyebrow loss. Thyroid gland measure 15 gms . No nodules or tenderness palpated. There is no cervical adenopathy palpated. Lungs CTA. Heart S1, S2 Reg R/R -M/R/G. Abdominal exam benign. Skin exam reveals absence of dryness or thyroid dermopathy or vitiligo. Nail exam reveals absence of thyroid acropachy or oncholysis. Neurologic exam reveals 2+ reflexes . Muscle Strength is 5/5 proximally. There are no tremors in upper extremities. Assessment & Plan Assessment & Plan (1) Multinodular goiter (nontoxic): Code(s): E04.2 - Nontoxic multinodular goiter Plan: This 63-year-old female with a history of multinodular goiter with dominant right thyroid nodule meeting criteria for FNA. TSH is now normalized and patient appears to be clinically biochemically euthyroid. Iodine scan did not show hot or cold nodules Plan is to discuss options of treatment with the patient including possible FNA of right upper pole nodule versus observation. The patient through a educational sign language interpreter requested a 2nd opinion by another certification technician I referred her to Dr. Horton at [facility]. She will follow-up after this Orders: Referrals Endocrinology Referral E04.2 - Nontoxic multinodular goiter Coding Level of Care Code Est Pt Level 3 (45179) Diagnoses Multinodular goiter (nontoxic) E04.2
== END 2023-12-22 15:13 | disposition home or self-care (01) ==
PROVIDERS: PCP Internal Medicine; Visit Provider Internal Medicine Endocrinology, Diabetes & Metabolism
DX: E04.2 Nontoxic multinodular goiter (principal)
CPT/HCPCS: 99213

== ENCOUNTER → 2023-12-22 14:33 | Outpatient (BNVA) | payer MEDICAID, SELFPAY | PROVIDERS: PCP Internal Medicine; Visit Provider Internal Medicine Endocrinology, Diabetes & Metabolism | DX: E04.2 Nontoxic multinodular goiter (principal) | CPT/HCPCS: 99212 ==

== ENCOUNTER 2023-12-24 20:11 | Emergency (ER) | payer MEDICAID, SELFPAY ==
[2023-12-24 20:20] VITALS: BP 204/86; BP 218/104; PULSE 58; PULSE 69; RESP 16; TEMP 37.2; O2SAT 98; O2SAT 99; BMI 26.0
--- NOTE | 2023-12-24 20:27 | ECG_ITS ---
Test Reason : DIZZINESS Blood Pressure : / mmHG Vent. Rate : 066 BPM Atrial Rate : 066 BPM P-R Int : 154 ms QRS Dur : 084 ms QT Int : 420 ms P-R-T Axes : 034 028 047 degrees QTc Int : 440 ms Normal sinus rhythm Normal ECG When compared with ECG of 21-SEP-2023 18:28, No significant change was found Referred By: Generic ED Physician Electronically Signed By:Shun Mueller
[2023-12-24 20:42] LABS: MANUAL DIFF FLAG NO
--- NOTE | 2023-12-24 20:42 | ED.GENADULT ---
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 She was working today when she started to feel nauseated. Later she felt dizzy. She checked her blood pressure and was elevated. She called an ambulance and was brought to the hospital. She says she has had some very mild intermittent left-sided head pain but no real headache. No severe headache. No chest pain. No shortness of breath. No weakness or numbness in her extremities. The patient says that she has felt this way before when her blood pressure has been high. Related Data Home Medications Medication Instructions Recorded Confirmed cholecalciferol (vitamin D3) 25 25 mcg PO DAILY 12/13/20 mcg (1,000 unit) capsule cyclobenzaprine 10 mg tablet 10 mg PO BEDTIME 12/13/20 duloxetine 30 mg capsule,delayed 30 mg PO DAILY 12/13/20 release (Cymbalta) gabapentin 100 mg capsule 100 mg PO BEDTIME 12/13/20 metoprolol succinate 25 mg 25 mg PO BID 12/13/20 tablet,extended release 24 hr naproxen 500 mg tablet,delayed 500 mg PO Q12H 12/13/20 release (EC-Naprosyn) omega-3 fatty acids 1,000 mg 1,000 mg PO DAILY 12/13/20 capsule (Fish Oil Concentrate) losartan 50 mg tablet 50 mg PO DAILY 12/22/23 Previous Rx's Medication Instructions Recorded erythromycin 5 mg/gram (0.5 %) eye 0.5 inch ophthalmic (eye) TID 1 11/20/22 ointment week #3.5 grams ibuprofen 600 mg tablet 600 mg PO Q6H PRN fever or pain 01/27/23 #30 tabs Allergies Allergy/AdvReac Type Severity Reaction Status Date / Time No Known Allergies Allergy Verified 12/22/23 14:39 [No Known Allergies*] Review of Systems Review of Systems: Yes all other systems are reviewed and are negative FOR[facility]LY [facility], [facility] Past Medical History Medical History Multinodular goiter (nontoxic) Cervical spondylosis Fibromyalgia Ganglion cyst Osteoarthritis Vitamin D deficiency Osteopenia HTN (hypertension) Surgical History S/P foot surgery, right Hx of tubal ligation Hx of hysterectomy Family History Family History Father HTN (hypertension) Mother CVD (cardiovascular disease) Social History Social History Household Members: Spouse and Children Housing: Apartment Alcohol intake: never Smoked in Last 30 Days: No Use of substances other than those prescribed or required for medical reasons: No Advance Directives: No Advance Directives Information Provided: No Patient : No Physical Exam ED Vital Signs: Vital Signs - 24 hr 12/24/23 20:20 12/24/23 23:46 Temperature 98.9 F 98.1 F Pulse Rate 58 61 Respiratory Rate 16 16 Blood Pressure 204/86 H 170/81 H Pulse Oximetry 98 98 Oxygen Delivery Method Room Air Room Air BMI result Body Mass Index 26.0 Const Other: The patient is awake, alert, pleasant, cooperative. She does not appear in acute distress. HENMT Other: Face is symmetrical. Mucous membranes moist Eyes Other: Pupils are round equal, extraocular movements intact, no nystagmus Neck Other: The neck is supple. No JVD. Resp Effort & Inspection: normal respiratory effort Auscultation: clear to auscultation bilaterally Cardio Rate: regular rate Rhythm: regular rhythm Heart sounds: S1 normal heart sound present and S2 normal heart sound present GI Other: Abdomen is soft and nontender Skin Other: Skin is dry and unremarkable Neuro Other: The patient is awake, alert, oriented, and appropriate. Mental status is normal. Eye movements are intact without nystagmus. Pupils are round equal and reactive to light. Visual islas are intact to confrontation. Face is symmetrical. Speech is clear. The patient has 5/5 strength in all 4 extremities. No pronator drift. Finger-nose is normal. Heel-kowalski is normal. Sensation is normal throughout. NIH stroke scale is 0. Medications Administered Discontinued Medications Generic Name Dose Route Start Last Admin Trade Name Freq PRN Reason Stop Dose Admin Clonidine HCl 0.1 mg 12/24/23 20:52 12/24/23 21:46 Clonidine Hcl 0.1 Mg Tablet PO 12/24/23 20:53 0.1 mg ONCE ONE Administration Protocol Ondansetron HCl 4 mg 12/24/23 21:42 12/24/23 21:46 Ondansetron Odt 4 Mg Tab.Spike JUAREZ 12/24/23 21:43 4 mg ONCE ONE Administration Medical Decision Making Medical Decision Making [facility] Narrative: The patient is a 63-year-old woman with a history of hypertension who developed nausea followed by dizziness today. Her blood pressure was high. She came to the emergency room by ambulance. She has had nausea but no vomiting. She has no significant headache. She claims to have had episodes like this in the past with high blood pressure. I do not find any neurological deficits to suggest she is having a stroke. The patient was given 0.1 mg of clonidine and 4 mg of oral dissolving ondansetron. She was observed. She had resolution of her nausea blood pressure improved. She felt much better and was eager to go home. She was given a work note. She was advised to follow up with her PCP. Lab Data 12/24/23 20:38 12/24/23 20:38 Labs: Lab Results 12/24/23 Range/Units 20:38 WBC 10.7 (4.8-10.8) X10*3/uL RBC 4.54 (4.20-5.50) X10*6/uL Hgb 13.6 (12.0-16.0) g/dl Hct 40.9 (37.0-47.0) % MCV 90.1 (80.0-98.0) fL MCH 30.0 (27.0-33.0) pg MCHC 33.3 (31.0-35.0) g/dl RDW 12.7 (11.0-16.0) % Plt Count 283 (160-400) X10*3/uL MPV 11.7 (9.4-12.3) fL Immature Gran % (Auto) 0.3 (0.0-0.4) % Neut % (Auto) 79.0 H (45-73) % Lymph % (Auto) 12.4 L (20-40) % [place] % (Auto) 7.3 (2-11) % Eos % (Auto) 0.7 (0-4) % Baso % (Auto) 0.3 (0-2) % Lymph # (Auto) 1.3 (1.2-4.9) X10*3/uL [place] # (Auto) 0.8 (0.1-1.2) X10*3/uL Eos # (Auto) 0.1 (0.0-0.4) X10*3/uL Baso # (Auto) 0.0 (0.0-0.2) X10*3/uL Abs Immat Gran (auto) 0.03 (0.00-0.03) X10*3/uL Absolute Neuts (auto) 8.4 H (2.0-8.3) x10*3/uL Absolute Nucleated RBC 0.000 (0.0-0.012) X10*3/uL Nucleated RBC % (auto) 0.0 (0.0-0.2) /100WBC Sodium 144 (135-145) mmol/L Potassium 3.3 (3.3-5.1) mmol/L Chloride 101 (96-108) mmol/L Carbon Dioxide 30 H (22-29) mmol/L Anion Gap 16 (12-20) BUN 15 (9-16) mg/dL Creatinine 0.72 (0.5-1.4) mg/dL Estim Creat Clear Calc 69.5 Estimated GFR > 60 Random Glucose 104 (60-115) mg/dL Calcium 9.7 (8.4-10.2) mg/dL Total Bilirubin 0.6 (0.0-1.0) mg/dL AST 47 H (5-31) U/L ALT 63 H (0-31) U/L Alkaline Phosphatase 117 (39-117) U/L Troponin I High Sens < 2.7 (<3.5-17.0) ng/L Total Protein 8.5 H (6.5-8.0) g/dL Albumin 4.9 (3.5-5.0) g/dL Beta HCG, Quant 3 mIU/mL Discharge Plan Discharge Clinical Impression: Nausea, Dizziness, Hypertension Patient Disposition: Home, Self-Care Additional Instructions: Please rest and take it easy tonight and tomorrow. Continue your regular medications at home. Please plan on following up with your regular doctor. My hope is that you will be feeling well enough on Thursday to return to work. If at any point you feel significantly worse please return to the emergency department. Prescriptions: No Action erythromycin 5 mg/gram (0.5 %) ointment 0.5 inch ophthalmic (eye) TID 7 Days Qty: 3.5 0RF ibuprofen 600 mg tablet 600 mg PO Q6H PRN (Reason: fever or pain) Qty: 30 0RF cholecalciferol (vitamin D3) 25 mcg (1,000 unit) capsule 25 mcg PO DAILY duloxetine [Cymbalta] 30 mg capsule,delayed release(DR/EC) 30 mg PO DAILY metoprolol succinate 25 mg tablet extended release 24 hr 25 mg PO BID gabapentin 100 mg capsule 100 mg PO BEDTIME cyclobenzaprine 10 mg tablet 10 mg PO BEDTIME naproxen [EC-Naprosyn] 500 mg tablet,delayed release (DR/EC) 500 mg PO Q12H omega-3 fatty acids [Fish Oil Concentrate] 1,000 mg capsule 1,000 mg PO DAILY losartan 50 mg tablet 50 mg PO DAILY Referrals: [facility] [Primary Care Provider] - (Hypertension, nausea, dizziness) Stand Alone Forms: Work/School Release Interventions: ED Discharge Assessment Last Done: 12/24/23 23:46 Discharge Date/Time: 12/24/23 23:47
[2023-12-24 20:55] LABS: Basophils Percent Auto 0.3 % (0-2); Eosinophils Absolute Auto 0.1 X10*3/uL (0.0-0.4); Eosinophils Percent Auto 0.7 % (0-4); Hematocrit 40.9 % (37.0-47.0); Hemoglobin 13.6 g/dl (12.0-16.0); Imm Gran Abs Auto 0.03 X10*3/uL (0.00-0.03); Imm Gran Pct Auto 0.3 % (0.0-0.4); Lymphocytes Absolute Auto 1.3 X10*3/uL (1.2-4.9); Lymphocytes Percent Auto 12.4 % (20-40); Mean Corpuscular HGB Conc 33.3 g/dl (31.0-35.0); Mean Corpuscular Volume 90.1 fL (80.0-98.0); Mean Platelet Volume 11.7 fL (9.4-12.3); Monocytes Absolute Auto 0.8 X10*3/uL (0.1-1.2); Monocytes Percent Auto 7.3 % (2-11); Neutrophils Absolute Auto 8.4 x10*3/uL (2.0-8.3); Platelet Count 283 X10*3/uL (160-400); Red Blood Count 4.54 X10*6/uL (4.20-5.50); Red Cell Distribution Width 12.7 % (11.0-16.0); White Blood Count 10.7 X10*3/uL (4.8-10.8)
[2023-12-24 21:05] LABS: Alanine Aminotransferase 63 U/L (0-31); Albumin Level 4.9 g/dL (3.5-5.0); Alkaline Phosphatase 117 U/L (39-117); Anion Gap 16 (12-20); Aspartate Amino Transferase 47 U/L (5-31); Bilirubin Total 0.6 mg/dL (0.0-1.0); Blood Urea Nitrogen 15 mg/dL (9-16); Calcium 9.7 mg/dL (8.4-10.2); Carbon Dioxide 30 mmol/L (22-29); Chloride 101 mmol/L (96-108); Creatinine Clr Calc Pharmacy 69.5; Estimated Glomerular Filt Rate > 60; Glucose Random 104 mg/dL (60-115); HCG Quantitative 3 mIU/mL; Potassium 3.3 mmol/L (3.3-5.1); Sodium 144 mmol/L (135-145); Total Protein 8.5 g/dL (6.5-8.0); Troponin-I High Sensitivity < 2.7 ng/L (<3.5-17.0)
[2023-12-24] MEDS: cloNIDine HCL 0.1 MG TABLET PO (21:46)
[2023-12-24] MEDS: Ondansetron ODT 4 MG TAB.RAPDIS TRANSLINGU (21:46)
[2023-12-24 23:46] VITALS: BP 170/81; PULSE 61; RESP 16; TEMP 36.7; O2SAT 98
== END 2023-12-24 23:47 | disposition home or self-care (01) ==
PROVIDERS: Emergency Provider Emergency Medicine
DX: R42 Dizziness and giddiness (principal); R11.0 Nausea; I10 Essential (primary) hypertension
CPT/HCPCS: 36415; 80053; 84484; 84702; 85025; 93005; 99283; 99284

== ENCOUNTER → 2023-12-24 20:27 | Outpatient (BNV) | payer MEDICAID, SELFPAY | PROVIDERS: Emergency Provider Emergency Medicine; Visit Provider Internal Medicine Cardiovascular Disease | DX: I10 Essential (primary) hypertension (principal) | CPT/HCPCS: 93010 ==

== ENCOUNTER 2024-02-02 08:59 | Outpatient (REF) | payer MEDICAID, SELFPAY ==
[2024-02-02 11:41] LABS: MANUAL DIFF FLAG NO
[2024-02-02 12:01] LABS: Basophils Percent Auto 1.1 % (0-2); Eosinophils Absolute Auto 0.1 X10*3/uL (0.0-0.4); Eosinophils Percent Auto 1.9 % (0-4); Hematocrit 37.8 % (37.0-47.0); Hemoglobin 12.4 g/dl (12.0-16.0); Imm Gran Abs Auto 0.01 X10*3/uL (0.00-0.03); Imm Gran Pct Auto 0.3 % (0.0-0.4); Lymphocytes Absolute Auto 1.6 X10*3/uL (1.2-4.9); Lymphocytes Percent Auto 42.6 % (20-40); Mean Corpuscular HGB Conc 32.8 g/dl (31.0-35.0); Mean Corpuscular Hemoglobin 29.7 pg (27.0-33.0); Mean Corpuscular Volume 90.6 fL (80.0-98.0); Mean Platelet Volume 12.1 fL (9.4-12.3); Monocytes Absolute Auto 0.4 X10*3/uL (0.1-1.2); Monocytes Percent Auto 9.4 % (2-11); Neutrophils Absolute Auto 1.7 x10*3/uL (2.0-8.3); Neutrophils Percent Auto 44.7 % (45-73); Platelet Count 291 X10*3/uL (160-400); Red Blood Count 4.17 X10*6/uL (4.20-5.50); Red Cell Distribution Width 12.9 % (11.0-16.0); White Blood Count 3.7 X10*3/uL (4.8-10.8)
[2024-02-02 12:26] LABS: Alanine Aminotransferase 15 U/L (0-31); Albumin Level 4.3 g/dL (3.5-5.0); Alkaline Phosphatase 96 U/L (39-117); Aspartate Amino Transferase 22 U/L (5-31); Bilirubin Direct 0.2 mg/dL (0.0-0.5); Bilirubin Total 0.6 mg/dL (0.0-1.0); Total Protein 7.5 g/dL (6.5-8.0)
[2024-02-02 12:40] LABS: HBS Num1 263.62 mIU/mL (0-7.99); HBc Num1 0.13 S/CO (0.00-0.79); HBsAGNum1 0.23 S/CO (0.00-0.99); HIV AB/AG Nonreactive (Nonreactive); HIV Num 1 0.04 S/CO (0.00-0.99); Hepatitis A Antibody IgM 0.29 Index (0-0.79); Hepatitis B Core Antibody Nonreactive (Nonreactive); Hepatitis B Surface Antigen Negative (Negative); ~HepC Num1 0.09 S/CO (0.00-0.79); ~Hepatitis A Antibody IgM Nonreactive (Nonreactive); ~Hepatitis B Surface Antibody REACTIVE (Nonreactive); ~Hepatitis C Antibody Nonreactive (Nonreactive)
[2024-02-02 13:23] LABS: Erythrocyte Sedimentation Rate 6 MM/HR (0-20)
[2024-02-03 11:14] LABS: RPR Rapid Plasma Reagin NON-REACTIVE (NON-REACTIVE)
== END 2024-02-02 09:00 | disposition home or self-care (01) ==
LOC: HO.HHCL 08:59
PROVIDERS: Visit Provider Internal Medicine
DX: R74.8 Abnormal levels of other serum enzymes (principal)
CPT/HCPCS: 36415; 80076; 85025; 85652; 86592; 86704; 86706; 86709; 86803; 87340; 87389

== ENCOUNTER 2024-05-12 13:17 | Outpatient (AMB) | payer MEDICAID, SELFPAY ==
[2024-05-12 13:35] VITALS: BP 150/98; PULSE 59; BMI 24.4
--- NOTE | 2024-05-12 13:35 | A.OFFVIS_ITS ---
Vital Signs 05/12/24 13:35 Height 5 ft 1 in Weight 129 lb 6.581 oz BMI 24.4 BP 150/98 H Blood Pressure Location Lt brachial Position Sitting Pulse 59 Pulse Source Pulse Oximeter Intake Visit Reasons: Nontoxic multinodular goiter/CONFIRMED Intake Note: Patient present today for Nontoxic multinodular goiter office visit. Asset Liability Analyst Required: Yes Asset Liability Analyst Language: Human Capital Analyst Services: Asset Liability Analyst Present Asset Liability Analyst Name: [id number] Amauro Information Interpreted: non-clinical & clinical Accompanied by: Self / Same As Patient Allergies No Known Allergies [No Known Allergies*] Allergy (Verified 05/12/24 13:43) Medication List - Last Reconciled 05/12/24 by Cynthia Miller MD cholecalciferol (vitamin D3) 25 mcg PO DAILY cyclobenzaprine 10 mg PO BEDTIME duloxetine (Cymbalta) 30 mg PO DAILY erythromycin 0.5 inches ophthalmic (eye) TID 1 week gabapentin 100 mg PO BEDTIME ibuprofen 600 mg PO Q6H PRN losartan 50 mg PO DAILY metoprolol succinate ER 25 mg PO BID naproxen (EC-Naprosyn) 500 mg PO Q12H omega-3 fatty acids (Fish Oil Concentrate) 1,000 mg PO DAILY HPI Comments Details: 63 YO F with who is seen for follow-up of multinodular goiter. Also has history significant for osteoporosis. Multinodular goiter Was initially diagnosed with multinodular thyroid in in January 2023 with thyroid US revealing MNG . Was noted to have a high suspicious TR 5 nodule in the right superior lobe measuring 1.1 cm with punctate echogenic foci. Other subcentimeter nodules noted bilaterally. Subsequently she was noted to have low TSH of 0.11 with normal free T4 and T3 levels in January of 2023, but subsequently normalized in June of 2023. In 07/2023 Thyroid uptake and scan was done for concerns of toxic multinodular goiter, which showed normal overall thyroid uptake, however showed some increased prominence in the area of her nodules. However it was indeterminate in terms of whether there was increased functionality of the 1.1 cm suspicious looking thyroid nodule. Hence She was advised to get FNA of the 1.1 cm right upper lobe nodule, however patient wanted to get a 2nd opinion at that time and had planned to go to [facility]. She was not able to get to [place] and has come back for follow-up today. Currently denies any dysphagia or hoarseness of voice. Denies sensation of swelling in the neck or difficulty breathing while lying flat. Occasionally has tenderness in the neck which is bothersome. This is new and has been happening for the past month. Denies palpitations, no tremors, no weight loss, no frequent bowel movements. Denies any ocular complaints, blurred or double vision. No hair loss,dry skin, , - weight gain, Does have heat intolerance. Denies any history of head or neck irradiation. Denies any family history of thyroid cancer. She has never had a thyroid biopsy before. Osteoporosis of the hip on DEXA scan from 05/17/2021 osteoporosis in the left femoral neck with T-score of -2.5 and osteopenia of the lumbar spine with T-score of -2.3. Patient states she was on alendronate for about a year in 2020. Denies being on any other therapy for osteoporosis. She is not sure why alendronate was discontinued but she has not been on it recently. Currently is on vitamin D 1000 units daily. Intermittently takes calcium supplements. Has 2-3 servings of cheese in a week. Has 2-3 servings of yogurt in a week. Does not drink milk. Will history of fractures. No history of osteoporosis in the family. Vitamin-D level was 39 from 09/2023. Noted to have normal calcium, creatinine, albumin levels in the chart Hypertension Has hypertension since her 50s. Has history of hypokalemia in the chart with potassium level of 3.1. Currently she is on losartan metoprolol. Not pressure is not well controlled, she does not check often at home, however blood pressure has been elevated in the 150 systolic. Has history of early cardiac in the family, her mother at the age of 43. Review of systems Constitutional: no fevers, chills or weight loss HEENT: no changes in vision Cardiac: No chest pain, discomfort or palpitations. Pulmonary: No SOB GI:No abdominal pain, no nausea or vomiting, no anorexia, no blood in stool : no burning micturition, dysuria or increase in urinary frequency Neurologic: No dizziness, no weakness in extremities MSK: no back pain or joint stiffness Physical exam General: sitting comfortably in bed in no acute distress HEENT: normocephalic/atraumatic, EOM intact, moist oral mucosa Neck: supple, symmetrical, no thyromegaly , no dorsocervical or supraclavicular fat pads Cardiac: normal heart sounds Pulm: normal breath sounds B/L, no added breath sounds Abd: not distended, no tenderness Extremities: no edema, no signs of myxedema Neuro: AAO x3, Speech: normal, no facial droop, moving all 4 extremities Skin: no rash PFSH Medical History Multinodular goiter (nontoxic) Cervical spondylosis Fibromyalgia Ganglion cyst Osteoarthritis Vitamin D deficiency Osteopenia HTN (hypertension) Surgical History S/P foot surgery, right Hx of tubal ligation Hx of hysterectomy Family History Father HTN (hypertension) Mother CVD (cardiovascular disease) Social History Household Members: Spouse and Children Housing: Apartment Alcohol intake: never Physical Exam Vital Signs: Last Vital Signs Pulse 59 05/12/24 13:35 BP 150/98 H 05/12/24 13:35 BMI result Body Mass Index 24.4 Results Reviewed Results Reviewed: Laboratory Tests 01/27/23 07/07/23 16:50 15:14 TSH 0.11 L 0.96 Free T4 1.70 1.04 Total T3 170 Free T3 3.3 Laboratory Tests 10/08/23 11/03/23 12/08/23 14:04 12:01 15:00 Potassium 3.1 L 3.6 Calcium Albumin 25-OH Vitamin D Total 39.7 12/24/23 20:38 Potassium 3.3 Calcium 9.7 Albumin 4.9 25-OH Vitamin D Total Thyroid US Oct 2023 images reviewed by [address] [address] Ultrasound Report Signed with Riana Patient: Angelic Alonso MR#: [id number] : 1960 Acct:[id number] Age/Sex: 63 / F ADM Date: 11/19/23 Loc: HO.US Attending Dr: Toi Islas MD Ordering Physician: Toi Islas MD Date of Service: 11/19/23 Procedure(s): US thyroid Accession Number(s): [id number] cc: Luz Marina Torres MD; Toi Islas MD~ ADDENDUM.. Addendum Dictated By: Katerine Xavier MD Addendum Signed By: <Electronically signed by Katerine Xavier MD in OV> 11/24/23 0710 Addendum Cosigned By: DD/ TD/TT: / EXAMINATION: US THYROID CLINICAL INFORMATION: Nontoxic multinodular goiter. COMPARISON: Thyroid ultrasound 02/19/2023. CT soft tissue neck 01/27/2023. TECHNIQUE: Linear transducer grayscale and color Doppler examination with attention to the region of the thyroid. FINDINGS: SIZE: Measurements of the thyroid lobes and nodules are given in sagittal, anteroposterior and transverse dimensions respectively. Right Thyroid Lobe: 4.7 x 1.2 x 1.6 cm, volume 4.4 mL. Previously 4.7 x 1.2 x 1.6 cm, volume 4.7 mL. Parenchyma: The gland echotexture is homogeneous. Thyroid vascularity is normal. Left Thyroid Lobe: 4.0 x 1.4 x 1.4 cm, volume 4.0 mL. Previously 3.9 x 1.3 x 1.4 cm, volume 3.7 mL. Parenchyma: The gland echotexture is homogeneous. Thyroid vascularity is normal. Isthmus: 0.2 cm in maximum AP dimension. Previously 0.2 cm. Estimated total number of nodules greater than or equal to 1 cm: 1. Pollution Control Engineer nodules are described as follows: 1. Location: Right upper pole. Size: 0.6 x 0.4 x 0.6 cm, volume 0.06 mL. Previously: 0.6 x 0.3 x 0.6 cm, volume 0.06 mL. Nodule characteristics: Composition: Solid/almost completely solid (2). Echogenicity: Hypoechoic (2). Shape: Not taller than wide (0). Margins: Ill-defined (0). Echogenic Foci: None (0). ACR TI-RADS total points: 4. Previous: 4. ACR TI-RADS category: 4. Previous: 4. Significant change in size (>/= 20% in 2 dimensions and minimal increase of 2 mm or 50% or greater increase in volume): No Change in features: No Change in ACR TI-RADS risk category: No 2. Location: Right upper pole. Size: 1.1 x 0.6 x 0.8 cm, volume 0.3 mL. Previously: 1.1 x 0.7 x 0.7 cm, volume 0.27 mL. Nodule characteristics: Composition: Solid/almost completely solid (2). Echogenicity: Hypoechoic (2). Shape: Not taller than wide (0). Margins: Smooth (0). Echogenic Foci: Punctate echogenic foci (3). ACR TI-RADS total points: 7. Previous: 7. ACR TI-RADS category: 5. Previous: 5. Significant change in size (>/= 20% in 2 dimensions and minimal increase of 2 mm or 50% or greater increase in volume): No Change in features: No Change in ACR TI-RADS risk category: No 3. Location: Right lower pole. Size: 0.4 x 0.2 x 0.4 cm, volume 0.02 mL. Previously: 0.5 x 0.3 x 0.5 cm, volume 0.03 mL. Nodule characteristics: Composition: Solid/almost completely solid (2). Echogenicity: Hypoechoic (2). Shape: Not taller than wide (0). Margins: Ill-defined (0). Echogenic Foci: None (0). ACR TI-RADS total points: 4. Previous: 6. ACR TI-RADS category: 4. Previous: 4. Significant change in size (>/= 20% in 2 dimensions and minimal increase of 2 mm or 50% or greater increase in volume): No Change in features: No Change in ACR TI-RADS risk category: No 4. Location: Left mid pole. Size: 0.3 x 0.2 x 0.2 cm, volume 0.006 mL. Previously: 0.4 x 0.3 x 0.3 cm, volume 0.02 mL. Nodule characteristics: Composition: Cystic(0). ACR TI-RADS total points: 0. Previous: 0. ACR TI-RADS category: 1. Previous: 1. Significant change in size (>/= 20% in 2 dimensions and minimal increase of 2 mm or 50% or greater increase in volume): No Change in features: No Change in ACR TI-RADS risk category: No NODES: No lymphadenopathy is seen in the tissue surrounding the thyroid gland. US/US thyroid IMPRESSION: 1.1 cm right upper TR5 thyroid nodule again meets criteria for biopsy. Fine-needle aspiration recommended if not already performed. Thyroid uptake and scan Jul 2023 [place] [address] Nuclear Medicine Report Signed Patient: Angelic Alonso MR#: [id number] : 1960 Acct:[id number] Age/Sex: 63 / F ADM Date: 08/06/23 Loc: FR[facility] Attending Dr: Toi Islas MD Ordering Physician: Toi Islas MD Date of Service: 08/06/23 Procedure(s): NM thyroid w uptake Accession Number(s): [id number] cc: Luz Marina Torres MD; Toi Islas MD~ EXAMINATION: THYROID UPTAKE AND SCAN CLINICAL INFORMATION: Nontoxic multinodular goiter. COMPARISON: CT of the soft tissue neck done on 01/27/2023 and ultrasound of the thyroid gland done on 02/19/2023. TECHNIQUE: Following the oral administration of 293 microcuries of I-123 sodium iodide, thyroid uptake was performed and expressed as a percentage of the administrated dose. Gamma scintillation camera images of the thyroid in the anterior and right and left anterior oblique views were obtained using a pinhole collimator following the administration of 10.0 mCi Tc-99m pertechnetate. FINDINGS: The uptake is 6.11% at 4 hours and 14.62% at 24 hours (Normal radioiodine uptake at 4 to 6 hours is about 5-15% and at 24 hours is 10% to 30%). The radioiodine uptake is normal. The radiopertechnetate thyroid scintigram demonstrates the thyroid gland to be normal in size, shape, and position. Appears asymmetrically prominent, shows a photopenic defect at mid to inferior pole The left lobe of the thyroid gland appear unremarkable. Previous sonographic detected 2 subcentimeter nodules seen at the mid part of the left lobe are not reproduced in the current study likely secondary to their small size. The right lobe of the thyroid gland shows a photopenic defect at mid to inferior pole consistent with a cold nodule likely corresponds to a 0.5 cm nodule seen on prior sonographic images. Note is made of a relatively hyperactive/hot nodule at mid pole which may or may not correspond to the dominant right superior 1.1 cm nodule seen on prior sonographic images. The trapping function appears normal. NM/NM thyroid w uptake IMPRESSION: 1. Normal radioiodine uptake. 2. The left lobe of the thyroid gland scintigraphically appear unremarkable without evidence of any superimposed discrete hot or cold nodules. 3. The right lobe of the thyroid gland is asymmetrically prominent, shows presence of both cold and hot nodules at mid to inferior part of the gland. DEXA scan April of 2021 [facility] [place] [address] Mammography Report Signed Patient: Angelic Alonso MR#: [id number] : 1960 Acct:[id number] Age/Sex: 60 / F ADM Date: 05/21/21 Loc: ALIS Attending Dr: Luz Marina Torres MD Ordering Physician: LUZ MARINA TORRES MD Results: Date of Service: 05/21/21 Follow Up: Procedure(s): XR DEXA axial skeleton Accession Number(s): [id number] cc: LUZ MARINA TORRES MD~ EXAMINATION: BONE DENSITOMETRY CLINICAL INDICATION: Menopause. COMPARISON: Previous BD dated 05/17/2015 and baseline BD dated 02/08/2010. TECHNIQUE: Using a [employer]UE [employer] DXA System (software version: 13.1) manufactured by [employer], dual-energy x-ray absorptiometry was performed of the lumbar spine and left hip. The images are of good technical quality. Summary results are attached. FINDINGS: AP SPINE L1-L4: Current: BMD 0.899 g/cm2, Z-score -0.9, T-score -2.3, osteopenia, 0.2% decrease from previous, 16.4% decrease from baseline (<5% change is not significant). Prior: BMD 0.901 g/cm2. Baseline: BMD 1.076 g/cm2. LEFT FEMUR, NECK: Current: BMD 0.689 g/cm2, Z-score -1.1, T-score -2.5, osteoporosis. Prior: BMD 0.713 g/cm2. Baseline: BMD 0.773 g/cm2. LEFT FEMUR, TOTAL: Current: BMD 0.775 g/cm2, Z-score -0.8, T-score -1.8, osteopenia, 2.3% decrease from previous, 9.4% decrease from baseline (<5% change is not significant). Prior: BMD 0.793 g/cm2. Baseline: BMD 0.855 g/cm2. IDENTIFIED RISK FACTORS: Menopause, hysterectomy. HISTORY OF FRACTURE: None listed. MEDICATIONS: Calcium supplements or multivitamin, vitamin D. Assessment & Plan Assessment & Plan (1) Multinodular goiter (nontoxic): Code(s): E04.2 - Nontoxic multinodular goiter Category: Medical Plan: Patient with no family history of thyroid cancer, with no personal history of head or neck radiation who has history of multinodular goiter diagnosed in January 2023 with the help of ultrasound. She had 1 reading of low TSH in January of 2023 of 0.11 with normal free T4 levels. Subsequently thyroid uptake and scan in June of 2023 showed normal overall thyroid uptake with some increased prominence at the site of her nodules but it was indeterminate whether her 1.1 cm suspicious right lobe nodule of TR 5 had increased uptake. I explained that it is common to have thyroid nodules. About 95% of the time these nodules are benign. However if the nodule is > 1 cm in size or suspicious on ultrasound then a fine need aspiration biopsy is recommended. We discussed that a FNAB involves 4-5 passes with a small gauge needle and material obtained is sent off for cytology.If the cytopathology is benign then the nodule will be followed annually with repeat ultrasounds. However if it is suspicious or malignant, we will need to discuss further management. Indeterminate cytology can be further investigated with repeat FNA, genetic testing or empiric lobectomy. Malignant cytology is managed with either lobectomy or total thyro idectomy. We discussed briefly that thyroid cancer is, in most patients, an indolent disease that does not affect mortality. We will arrange for FNA at next available opening for the 1.1 cm right superior TR 5 nodule given features and patient will follow up with me in clinic thereafter for results and further decision making. Plan: -ordered TSH, free T4 -thyroid biopsy of right superior 1.1 cm nodule (2) HTN (hypertension): Code(s): I10 - Essential (primary) hypertension Category: Medical Qualifiers: Hypertension type: unspecified Qualified Code(s): I10 - Essential (primary) hypertension Plan: Patient with history of hypertension since her 50s. Noted to have elevated blood pressure in the 150 systolic. She measures it at home as well sometimes and sees that it has been slightly elevated. She is on metoprolol and losartan and has been taking her medications regularly. She has history of sudden cardiac in the family with her mother dying at age 43. Alternative to have history of hypokalemia in the chart with potassium level of 3.1. We will screen her for primary hyperaldosteronism as the prevalence of this condition is about 10-20% and secondary hypertension. Plan: -ordered renin, aldosterone, potassium levels (3) Osteoporosis: Code(s): M81.0 - Age-related osteoporosis without current pathological fracture Category: Medical Qualifiers: Osteoporosis type: other Presence of current pathological fracture: without current pathological fracture Qualified Code(s): M81.8 - Other osteoporosis without current pathological fracture Plan: Patient with history of osteoporosis with T-score of-2.5 at the left femoral neck and a DEXA scan from April of 2024. She was on alendronate for air entry and 21, anterior right. . We will repeat DEXA now. She is taking adequate amounts of vitamin-D. Advised to improve calcium intake to at least 1000 mg daily by taking 2-3 servings of calcium rich foods daily. Advised to continue with weight-bearing exercise such as walking for at least 150 minutes a week. Plan: -repeat DEXA scan -evaluate for secondary causes of osteoporosis with calcium levels, SPEP. Already has good vitamin-D levels Plan See above Orders: Orders Thyroid Stimulating Hormone Today E04.2 - Nontoxic multinodular goiter Free T4 (Free Thyroxine) Today E04.2 - Nontoxic multinodular goiter US biopsy thyroid Today E04.2 - Nontoxic multinodular goiter Aldosterone Today I10 - Essential (primary) hypertension Renin Today I10 - Essential (primary) hypertension Calcium Today M81.0 - Age-related osteoporosis without current pathological fracture Alkaline Phosphatase Bone Today M81.0 - Age-related osteoporosis without current pathological fracture Potassium Today I10 - Essential (primary) hypertension Protein Electrophoresis, Serum Today M81.0 - Age-related osteoporosis without current pathological fracture Albumin Level Today M81.0 - Age-related osteoporosis without current pathological fracture Phosphorus Today M81.0 - Age-related osteoporosis without current pathological fracture XR DEXA axial skeleton Today M81.0 - Age-related osteoporosis without current pathological fracture Basic Metabolic Panel Today M81.0 - Age-related osteoporosis without current pathological fracture Patient Instructions: we will schedule you for thyroid biopsy Do blood work Get bone density scan done continue vitamin D 1000 units daily Maintaine 2-3 servings of calcium rich foods daily Le programaremos lalit biopsia de tiroides. hacer an?lisis de rich H?gase lalit exploraci?n de densidad ?sea continuar con vitamina D 1000 unidades al d?a Mantenga 2-3 porciones de alimentos ricos en calcio al d?a. Coding Level of Care Code Est Pt Level 5 (63267) Diagnoses Multinodular goiter (nontoxic) E04.2 Hypertension, unspecified type I10 Hypertension type: unspecified Other osteoporosis without current pathological fracture M81.8 Osteoporosis type: other Presence of current pathological fracture: without current pathological fracture
== END 2024-05-12 14:53 | disposition home or self-care (01) ==
PROVIDERS: PCP Internal Medicine; Visit Provider Student in an Organized Health Care Education/Training Program
DX: E04.2 Nontoxic multinodular goiter (principal); I10 Essential (primary) hypertension; M81.8 Other osteoporosis without current pathological fracture
CPT/HCPCS: 99214

== ENCOUNTER → 2024-05-12 13:17 | Outpatient (BNVA) | payer MEDICAID, SELFPAY | PROVIDERS: PCP Internal Medicine; Visit Provider Student in an Organized Health Care Education/Training Program | DX: E04.2 Nontoxic multinodular goiter (principal); I10 Essential (primary) hypertension; M81.8 Other osteoporosis without current pathological fracture; Z79.899 Other long term (current) drug therapy | CPT/HCPCS: 99212 ==

== ENCOUNTER 2024-05-16 15:51 | Outpatient (REF) | payer MEDICAID, SELFPAY ==
[2024-05-16 17:12] LABS: Albumin Level 4.6 g/dL (3.5-5.0); Anion Gap 14 (12-20); Blood Urea Nitrogen 22 mg/dL (9-16); Calcium 10.1 mg/dL (8.4-10.2); Carbon Dioxide 28 mmol/L (22-29); Chloride 102 mmol/L (96-108); Estimated Glomerular Filt Rate 38; Glucose Random 96 mg/dL (60-115); Phosphorus 3.9 mg/dL (2.7-4.5); Potassium 3.8 mmol/L (3.3-5.1); Sodium 140 mmol/L (135-145)
[2024-05-16 17:28] LABS: Thyroid Stimulating Hormone 0.66 uIU/mL (0.32-4.0)
[2024-05-18 11:04] LABS: Prot Elec - Albumin 4.8 g/dL (3.8-4.8); Prot Elec - Alpha1 0.2 g/dL (0.2-0.3); Prot Elec - Alpha2 0.7 g/dL (0.5-0.9); Prot Elec - Beta 1 0.5 g/dL (0.4-0.6); Prot Elec - Beta 2 0.4 g/dL (0.2-0.5); Prot Elec - Gamma 1.2 g/dL (0.8-1.7); Prot Elec - Total Protein 7.6 g/dL (6.1-8.1)
[2024-05-20 14:13] LABS: Alkaline Phosphatase Bone 20.5 mcg/L (5.6-29.0)
[2024-05-22 12:19] LABS: Renin 0.06 ng/mL/h (0.25-5.82)
== END 2024-05-16 15:52 | disposition home or self-care (01) ==
LOC: HO.LAB 15:51
PROVIDERS: PCP Internal Medicine; Visit Provider Student in an Organized Health Care Education/Training Program
DX: E04.2 Nontoxic multinodular goiter (principal); I10 Essential (primary) hypertension; M81.0 Age-related osteoporosis without current pathological fracture
CPT/HCPCS: 36415; 80048; 82040; 82088; 84075; 84100; 84165; 84244; 84439; 84443

== ENCOUNTER 2024-05-20 11:19 | Emergency (ER) | payer MEDICAID, SELFPAY ==
[2024-05-20 11:42] VITALS: BP 188/61; PULSE 51; RESP 18; TEMP 36.2; O2SAT 99
--- NOTE | 2024-05-20 11:46 | ED.GENADULT ---
HPI - General Adult General Chief complaint: Ear Problems Stated complaint: l ear pain and bleeding Time Seen by Provider: 05/20/24 12:02 Source: patient, RN notes reviewed and old records reviewed Mode of arrival: ambulatory Limitations: no limitations History of Present Illness ED Provider: CHRIS VICTOR PA-C HPI narrative: 63 year old [place] speaking female with pmhx significant for HTN and OA presents to the ED today for evaluation of left ear pain/ pressure x5 days. She was evaluated at [facility] on Thursday (4 days ago) and was prescribed ofloxacin drops which she has been using without relief. States her hearing seems muffled. No hearing loss. Reports small amount of crusted blood within her ear canal 5 days ago. No bleeding since. No noted discharge. Denies history of diabetes. Related Data Home Medications ?Medication ?Instructions ?Recorded ?Confirmed cholecalciferol (vitamin D3) 25 25 mcg PO DAILY 12/13/20 05/12/24 mcg (1,000 unit) capsule cyclobenzaprine 10 mg tablet 10 mg PO BEDTIME 12/13/20 05/12/24 duloxetine 30 mg capsule,delayed 30 mg PO DAILY 12/13/20 05/12/24 release (Cymbalta) gabapentin 100 mg capsule 100 mg PO BEDTIME 12/13/20 05/12/24 metoprolol succinate 25 mg 25 mg PO BID 12/13/20 05/12/24 tablet,extended release 24 hr naproxen 500 mg tablet,delayed 500 mg PO Q12H 12/13/20 05/12/24 release (EC-Naprosyn) omega-3 fatty acids 1,000 mg 1,000 mg PO DAILY 12/13/20 05/12/24 capsule (Fish Oil Concentrate) losartan 50 mg tablet 50 mg PO DAILY 12/22/23 05/12/24 Previous Rx's ?Medication ?Instructions ?Recorded erythromycin 5 mg/gram (0.5 %) eye 0.5 inch ophthalmic (eye) TID 1 11/20/22 ointment week #3.5 grams ibuprofen 600 mg tablet 600 mg PO Q6H PRN fever or pain 01/27/23 #30 tabs ciprofloxacin 0.3 %-dexamethasone 4 drp otic (ear) left BID 7 days 05/20/24 0.1 % ear drops,suspension #7.5 mL (Ciprodex) Allergies Allergy/AdvReac Type Severity Reaction Status Date / Time No Known Allergies Allergy Verified 05/20/24 11:43 [No Known Allergies*] Review of Systems Review of Systems: Constitutional: No fever, chills, fatigue, night sweats, weight changes ENT/Mouth: No hearing loss, nasal congestion, sinus pain, rhinorrhea, sore throat, +left ear pain Eyes: No eye pain, swelling, redness, vision changes, discharge Cardio: No chest pain, palpitations, BUNCH, orthopnea, peripheral edema Pulm: No SOB, cough, sputum, wheezing, dyspnea, hemoptysis GI: No nausea, vomiting, hematemesis, abdominal pain, diarrhea, constipation, hematochezia, melena : No irregular bleeding, dysuria, frequency, urgency, hesitancy, hematuria, flank pain, urinary flow changes, urinary incontinence or retention MSK: No back pain, neck pain, joint pain, myalgias Skin: No lesions, rashes Neuro: No weakness, numbness, paresthesias, LOC, dizziness, headache Psych: No anxiety/panic, depression, SI/HI, AH/VH All other systems reviewed and are negative. [facility] Past Medical History Attestation statement: The following information was validated with the patient. Source: old records reviewed and nursing notes reviewed Medical History Osteoporosis Multinodular goiter (nontoxic) Cervical spondylosis Fibromyalgia Ganglion cyst Osteoarthritis Vitamin D deficiency Osteopenia HTN (hypertension) Surgical History S/P foot surgery, right Hx of tubal ligation Hx of hysterectomy Family History Family History Father HTN (hypertension) Mother CVD (cardiovascular disease) Social History Social History Household Members: Spouse and Children Housing: Apartment Alcohol intake: never Physical Exam ED Vital Signs: Vital Signs - 24 hr 05/20/24 11:42 Temperature 97.2 F Pulse Rate 51 Respiratory Rate 18 Blood Pressure 188/61 H Pulse Oximetry 99 Oxygen Delivery Method Room Air BMI result Body Mass Index 20.0 Patient hypertensive, vitals otherwise WNL Const General: cooperative, healthy appearing, comfortable and no acute distress Orientation/consciousness: patient oriented x3 Limitations: no limitations HENMT Other: + Minimal pain on manipulation of left pinna. No mastoid tenderness or protrusion of the auricle. Left EAC erythematous and edematous without noted discharge or bleeding. TM intact without erythema, effusion, or bulging. + No pain on manipulation of right pinna or tragus. No mastoid tenderness or protrusion of the auricle. Right EAC without erythema, edema or discharge. TM intact without erythema, effusion, or bulging. Head: Yes normal to inspection, Yes No palpable skull fracture present, Yes normocephalic and Yes atraumatic Ears: hearing grossly normal bilaterally Face and sinus: Yes normal facial exam and Yes sinuses nontender Eyes General: appearance normal, both eyes and all related structures Pupils: Equal, round and reactive pupils present Neck Neck: Yes normal visual inspection and Yes no lymphadenopathy Resp Effort & Inspection: normal respiratory effort and able to speak in complete sentences Auscultation: clear to auscultation bilaterally Cardio Rate: regular rate Rhythm: regular rhythm Skin General skin exam: no rashes or lesions noted Neuro General: patient oriented x3 and gait normal Cranial nerves: Yes Equal, round and reactive pupils present Course Course Course Narrative: 1203-- Physical exam is consistent with left otitis externa. I did discuss this with patient. Will send ciprodex ear drops to pharmacy for treatment. Advised to take tylenol/ motrin at home for pain/ discomfort. She has remained stable throughout ED visit today. Discussed worrisome signs and symptoms and when to return to the ED. All questions answered at this time. Patient is agreeable with disposition and stable for discharge. Medical Decision Making Medical Decision Making [facility] Narrative: 63 year old [place] speaking female with pmhx significant for HTN and OA presents to the ED today for evaluation of left ear pain/ pressure x5 days. Patient hypertensive to 188/61, vitals otherwise wnl. She is nontoxic appearing and in NAD. On exam, minimal pain on manipulation of left pinna. No mastoid tenderness or protrusion of the auricle. Left EAC erythematous and edematous without noted discharge or bleeding. TM intact without erythema, effusion, or bulging. Presentation consistent with otitis externa. Lower suspicion for otitis media. Unlikely mastoiditis, malignant otitis externa. Plan for disposition. Differential Diagnosis Differential Diagnoses: The differential diagnosis associated with the presentation includes as above. Admission/Observation Not indicated External Record Review External record reviewed: Inpatient record Tests considered The following testing was considered but not selected: I considered obtaining imaging however no suspicion for deep tissue infection, not warranted at this time Prescription Management I considered prescription management with: Antibiotic (Ciprodex) Social Determinants Patient?s care significantly limited by Social Determinants of Health including: Other Social Determinant of Health Critical Care Time Critical Care Time Critical Care Time: No Discharge Plan Discharge Clinical Impression: Otitis externa of left ear Patient Disposition: Home, Self-Care Instructions: Otitis Externa (ED) Additional Instructions: You were seen in the ED today for left ear pain unresponsive to your current ear drops. You were noted to have an external ear infection within your left ear. He needs combination antibiotic/steroid ear drop. Ciprodex is an been sent to your pharmacy. Instill 4 drops into her ear twice daily for the next 7 days. You have also been provided with a referral to an ENT doctor. Call them to make an appointment. They will not call you. I recommend you take 600mg ibuprofen every 6 hours or Tylenol 650mg every 6 hours as needed for pain. If needed, you can alternate these medications so that you take one medication every 3 hours. For example, at noon take ibuprofen, then at 3pm take Tylenol, then at 6pm take ibuprofen. Please follow up with your PCP as needed. Return with new or worsening symptoms. In the case of an emergency call 911. Prescriptions: New ciprofloxacin-dexamethasone [Ciprodex] 0.3-0.1 % drops,suspension 4 drp otic (ear) left BID 7 Days Qty: 7.5 0RF No Action erythromycin 5 mg/gram (0.5 %) ointment 0.5 inch ophthalmic (eye) TID 7 Days Qty: 3.5 0RF ibuprofen 600 mg tablet 600 mg PO Q6H PRN (Reason: fever or pain) Qty: 30 0RF cholecalciferol (vitamin D3) 25 mcg (1,000 unit) capsule 25 mcg PO DAILY duloxetine [Cymbalta] 30 mg capsule,delayed release(DR/EC) 30 mg PO DAILY metoprolol succinate 25 mg tablet extended release 24 hr 25 mg PO BID gabapentin 100 mg capsule 100 mg PO BEDTIME cyclobenzaprine 10 mg tablet 10 mg PO BEDTIME naproxen [EC-Naprosyn] 500 mg tablet,delayed release (DR/EC) 500 mg PO Q12H omega-3 fatty acids [Fish Oil Concentrate] 1,000 mg capsule 1,000 mg PO DAILY losartan 50 mg tablet 50 mg PO DAILY Referrals: Luz Marina Arias MD [Primary Care Provider] - Sen Londono [Physician] - Stand Alone Forms: Work/School Release Discharge Date/Time: 05/20/24 12:14 Print Language: Monts[place]atian
== END 2024-05-20 12:14 | disposition home or self-care (01) ==
LOC: HO.ED 12:10
PROVIDERS: Emergency Provider Emergency Medicine; PCP Internal Medicine
DX: H60.92 Unspecified otitis externa, left ear (principal)
CPT/HCPCS: 99281; 99283

== ENCOUNTER 2024-06-08 09:41 | Outpatient (REF) | payer MEDICAID, SELFPAY ==
--- NOTE | 2024-06-08 11:24 | PM.PROC ---
Brief Operative Note Date of procedure: 06/08/24 Pre-op diagnosis: right superior lobe 1.1 cm thyroid nodule biopsy Post-op diagnosis: same Procedure: THYROID FINE NEEDLE ASPIRATION PROCEDURE NOTE ? PROCEDURE PERFORMED: Ultrasound-guided FNA of thyroid nodule ? OPERATORS: Dr. Cynthia Miller ? INDICATION:1.1 cm right-sided thyroid nodule; FNA performed to assess for malignancy ? DESCRIPTION OF PROCEDURE: The indications for FNA (to assess for malignancy) were reviewed with the patient in detail. Potential complications (e.g., bleeding, infection, damage to local structures, absence of clear diagnosis after FNA) were reviewed. Alternatives to FNA including conservative observation or surgery were described. The patient understood and agreed to proceed. This was documented by the signing of the written informed consent form. A time-out was performed to confirm the patient's identity and the site of planned FNA. The nodule of interest was identified using ultrasound (14 MHz linear array probe). The site of FNA was then draped in the usual fashion and carefully cleaned and prepared using alcohol swabs. The skin and subcutaneous tissue at the previously-identified site of needle insertion were iced and sprayed with numbing spray. Under ultrasound guidance, 5__ passes were performed using a 1.5-inch, 22-gauge needle, and sample was obtained via capillary action. The needle tip was clearly visualized to be within the nodule at the time of sampling for _3_ of _5_ passes The patient tolerated the procedure well. There were no immediate complications. A small adhesive bandage was applied, and the patient was advised to take acetaminophen (rather than NSAIDs) for any discomfort and to report any signs of inflammation/infection or marked swelling. IMPRESSION: Technically successful ultrasound-guided fine needle aspiration of 1.1 cm right -sided thyroid nodule. PLAN: The patient was advised that I will provide follow-up regarding the cytology result and any subsequent plans. Cynthia Miller MD Condition: stable Disposition: same day
== END 2024-06-08 09:42 | disposition home or self-care (01) ==
LOC: HO.US 09:41
PROVIDERS: PCP Internal Medicine; Visit Provider Student in an Organized Health Care Education/Training Program
DX: E04.2 Nontoxic multinodular goiter (principal)
CPT/HCPCS: 10005; 88173

== ENCOUNTER → 2024-06-08 09:41 | Outpatient (BNV) | payer MEDICAID, SELFPAY | PROVIDERS: PCP Internal Medicine; Visit Provider Student in an Organized Health Care Education/Training Program | DX: E04.2 Nontoxic multinodular goiter (principal) | CPT/HCPCS: 10005 ==

== ENCOUNTER 2024-06-22 13:22 | Outpatient (AMB) | payer MEDICAID, SELFPAY ==
[2024-06-22 13:24] VITALS: BP 170/92; PULSE 56; BMI 22.0
--- NOTE | 2024-06-22 13:24 | MHC.OFFVIS ---
Vital Signs 06/22/24 13:24 06/22/24 13:55 Height 5 ft 5 in Weight 132 lb 0.91 oz BMI 22.0 BP 170/92 H 170/90 H Blood Pressure Location Lt brachial Lt brachial Position Sitting Pulse 56 Pulse Source Pulse Oximeter Intake Visit Reasons: Biopsy F/U/CONFIRMED Intake Note: Patient present today for biopsy follow up visit. Shape Carver Required: Yes Shape Carver Language: Shipyard Helper Services: Shape Carver Present Shape Carver Name: Aly [id number] Information Interpreted: non-clinical & clinical Accompanied by: Sister Allergies No Known Allergies [No Known Allergies*] Allergy (Verified 06/22/24 13:28) Medication List - Last Reconciled 06/22/24 by Cynhtia Miller MD cholecalciferol (vitamin D3) 25 mcg PO DAILY ciprofloxacin HCl 0.3% Instill 4 drops to left ear twice daily for 7 days ciprofloxacin-dexamethasone 0.3-0.1 % (Ciprodex) 4 drps otic (ear) left BID 7 days cyclobenzaprine 10 mg PO BEDTIME duloxetine (Cymbalta) 30 mg PO DAILY erythromycin 0.5 inches ophthalmic (eye) TID 1 week gabapentin 100 mg PO BEDTIME ibuprofen 600 mg PO Q6H PRN losartan 100 mg PO DAILY metoprolol succinate ER 25 mg PO ONCE naproxen (EC-Naprosyn) 500 mg PO Q12H omega-3 fatty acids (Fish Oil Concentrate) 1,000 mg PO DAILY HPI Comments Details: 63 YO F with who is seen for follow-up of multinodular goiter. Also has history significant for osteoporosis. Multinodular goiter Was initially diagnosed with multinodular thyroid in in January 2023 with thyroid US revealing MNG . Was noted to have a high suspicious TR 5 nodule in the right superior lobe measuring 1.1 cm with punctate echogenic foci. Other subcentimeter nodules noted bilaterally. Subsequently she was noted to have low TSH of 0.11 with normal free T4 and T3 levels in January of 2023, but subsequently normalized in June of 2023. In 07/2023 Thyroid uptake and scan was done for concerns of toxic multinodular goiter, which showed normal overall thyroid uptake, however showed some increased prominence in the area of her nodules. However it was indeterminate in terms of whether there was increased functionality of the 1.1 cm suspicious looking thyroid nodule. Hence She was advised to get FNA of the 1.1 cm right upper lobe nodule, however patient wanted to get a 2nd opinion at that time and had planned to go to [facility]. She was not able to get to [place] and has come back for follow-up today. She underwent FNA of the right superior 1.1 cm nodule on 06/08/24. Cytology was nondiagnostic, [place] category 1. Currently denies any dysphagia or hoarseness of voice. Denies sensation of swelling in the neck or difficulty breathing while lying flat. Occasionally has tenderness in the neck which is bothersome. This is new and has been happening for the past month. Denies palpitations, no tremors, no weight loss, no frequent bowel movements. Denies any ocular complaints, blurred or double vision. No hair loss,dry skin, , - weight gain, Does have heat intolerance. Denies any history of head or neck irradiation. Denies any family history of thyroid cancer. She has never had a thyroid biopsy before. Osteoporosis of the hip on DEXA scan from 05/17/2021 osteoporosis in the left femoral neck with T-score of -2.5 and osteopenia of the lumbar spine with T-score of -2.3. Patient states she was on alendronate for about a year in 2020. Denies being on any other therapy for osteoporosis. She is not sure why alendronate was discontinued but she has not been on it recently. Currently is on vitamin D 1000 units daily. Intermittently takes calcium supplements. Has 2-3 servings of cheese in a week. Has 2-3 servings of yogurt in a week. Does not drink milk. Will history of fractures. No history of osteoporosis in the family. Vitamin-D level was 39 from 11/2023. Noted to have normal calcium, creatinine, albumin levels in the chart SPEP immunofixation normal Hypertension Has hypertension since her 50s. Has history of hypokalemia in the chart with potassium level of 3.1. Currently she is on losartan 100 mg daily, metoprolol. 25 once at night Not pressure is not well controlled, she does not check often at home, however blood pressure has been elevated in the 150 systolic. Has history of early cardiac in the family, her mother at the age of 43. Labs 05/21 showed suppressed renin of 0.06, aldosterone not elevated at 3. Review of systems Constitutional: no fevers, chills or weight loss HEENT: no changes in vision Cardiac: No chest pain, discomfort or palpitations. Pulmonary: No SOB GI:No abdominal pain, no nausea or vomiting, no anorexia, no blood in stool : no burning micturition, dysuria or increase in urinary frequency Neurologic: No dizziness, no weakness in extremities MSK: no back pain or joint stiffness Physical exam General: sitting comfortably in bed in no acute distress HEENT: normocephalic/atraumatic, EOM intact, moist oral mucosa Neck: supple, symmetrical, no thyromegaly , no dorsocervical or supraclavicular fat pads Cardiac: normal heart sounds Pulm: normal breath sounds B/L, no added breath sounds Abd: not distended, no tenderness Extremities: no edema, no signs of myxedema Neuro: AAO x3, Speech: normal, no facial droop, moving all 4 extremities Skin: no rash PFSH Medical History Osteoporosis Multinodular goiter (nontoxic) Cervical spondylosis Fibromyalgia Ganglion cyst Osteoarthritis Vitamin D deficiency Osteopenia HTN (hypertension) Surgical History S/P foot surgery, right Hx of tubal ligation Hx of hysterectomy Family History Father HTN (hypertension) Mother CVD (cardiovascular disease) Social History Household Members: Spouse and Children Housing: Apartment Alcohol intake: never Results Reviewed Results Reviewed: Laboratory Tests 12/08/23 05/16/24 15:00 16:14 Sodium 140 Potassium 3.8 Creatinine 1.40 Estimated GFR 38 Calcium 10.1 Phosphorus 3.9 Alk Phos Bone Specific 20.5 Renin 0.06 L Aldosterone 3 25-OH Vitamin D Total 39.7 TSH 0.66 Free T4 0.90 Laboratory Tests 01/27/23 07/07/23 16:50 15:14 TSH 0.11 L 0.96 Free T4 1.70 1.04 Total T3 170 Free T3 3.3 Laboratory Tests 10/08/23 11/03/23 12/08/23 14:04 12:01 15:00 Potassium 3.1 L 3.6 Calcium Albumin 25-OH Vitamin D Total 39.7 12/24/23 20:38 Potassium 3.3 Calcium 9.7 Albumin 4.9 25-OH Vitamin D Total Thyroid US Oct 2023 images reviewed by me EXAMINATION: US THYROID CLINICAL INFORMATION: Nontoxic multinodular goiter. COMPARISON: Thyroid ultrasound 02/19/2023. CT soft tissue neck 01/27/2023. TECHNIQUE: Linear transducer grayscale and color Doppler examination with attention to the region of the thyroid. FINDINGS: SIZE: Measurements of the thyroid lobes and nodules are given in sagittal, anteroposterior and transverse dimensions respectively. Right Thyroid Lobe: 4.7 x 1.2 x 1.6 cm, volume 4.4 mL. Previously 4.7 x 1.2 x 1.6 cm, volume 4.7 mL. Parenchyma: The gland echotexture is homogeneous. Thyroid vascularity is normal. Left Thyroid Lobe: 4.0 x 1.4 x 1.4 cm, volume 4.0 mL. Previously 3.9 x 1.3 x 1.4 cm, volume 3.7 mL. Parenchyma: The gland echotexture is homogeneous. Thyroid vascularity is normal. Isthmus: 0.2 cm in maximum AP dimension. Previously 0.2 cm. Estimated total number of nodules greater than or equal to 1 cm: 1. Gymnastics Instructor nodules are described as follows: 1. Location: Right upper pole. Size: 0.6 x 0.4 x 0.6 cm, volume 0.06 mL. Previously: 0.6 x 0.3 x 0.6 cm, volume 0.06 mL. Nodule characteristics: Composition: Solid/almost completely solid (2). Echogenicity: Hypoechoic (2). Shape: Not taller than wide (0). Margins: Ill-defined (0). Echogenic Foci: None (0). ACR TI-RADS total points: 4. Previous: 4. ACR TI-RADS category: 4. Previous: 4. Significant change in size (>/= 20% in 2 dimensions and minimal increase of 2 mm or 50% or greater increase in volume): No Change in features: No Change in ACR TI-RADS risk category: No 2. Location: Right upper pole. Size: 1.1 x 0.6 x 0.8 cm, volume 0.3 mL. Previously: 1.1 x 0.7 x 0.7 cm, volume 0.27 mL. Nodule characteristics: Composition: Solid/almost completely solid (2). Echogenicity: Hypoechoic (2). Shape: Not taller than wide (0). Margins: Smooth (0). Echogenic Foci: Punctate echogenic foci (3). ACR TI-RADS total points: 7. Previous: 7. ACR TI-RADS category: 5. Previous: 5. Significant change in size (>/= 20% in 2 dimensions and minimal increase of 2 mm or 50% or greater increase in volume): No Change in features: No Change in ACR TI-RADS risk category: No 3. Location: Right lower pole. Size: 0.4 x 0.2 x 0.4 cm, volume 0.02 mL. Previously: 0.5 x 0.3 x 0.5 cm, volume 0.03 mL. Nodule characteristics: Composition: Solid/almost completely solid (2). Echogenicity: Hypoechoic (2). Shape: Not taller than wide (0). Margins: Ill-defined (0). Echogenic Foci: None (0). ACR TI-RADS total points: 4. Previous: 6. ACR TI-RADS category: 4. Previous: 4. Significant change in size (>/= 20% in 2 dimensions and minimal increase of 2 mm or 50% or greater increase in volume): No Change in features: No Change in ACR TI-RADS risk category: No 4. Location: Left mid pole. Size: 0.3 x 0.2 x 0.2 cm, volume 0.006 mL. Previously: 0.4 x 0.3 x 0.3 cm, volume 0.02 mL. Nodule characteristics: Composition: Cystic(0). ACR TI-RADS total points: 0. Previous: 0. ACR TI-RADS category: 1. Previous: 1. Significant change in size (>/= 20% in 2 dimensions and minimal increase of 2 mm or 50% or greater increase in volume): No Change in features: No Change in ACR TI-RADS risk category: No NODES: No lymphadenopathy is seen in the tissue surrounding the thyroid gland. US/US thyroid IMPRESSION: 1.1 cm right upper TR5 thyroid nodule again meets criteria for biopsy. Fine-needle aspiration recommended if not already performed. Thyroid uptake and scan Jul 2023 EXAMINATION: THYROID UPTAKE AND SCAN CLINICAL INFORMATION: Nontoxic multinodular goiter. COMPARISON: CT of the soft tissue neck done on 01/27/2023 and ultrasound of the thyroid gland done on 02/19/2023. TECHNIQUE: Following the oral administration of 293 microcuries of I-123 sodium iodide, thyroid uptake was performed and expressed as a percentage of the administrated dose. Gamma scintillation camera images of the thyroid in the anterior and right and left anterior oblique views were obtained using a pinhole collimator following the administration of 10.0 mCi Tc-99m pertechnetate. FINDINGS: The uptake is 6.11% at 4 hours and 14.62% at 24 hours (Normal radioiodine uptake at 4 to 6 hours is about 5-15% and at 24 hours is 10% to 30%). The radioiodine uptake is normal. The radiopertechnetate thyroid scintigram demonstrates the thyroid gland to be normal in size, shape, and position. Appears asymmetrically prominent, shows a photopenic defect at mid to inferior pole The left lobe of the thyroid gland appear unremarkable. Previous sonographic detected 2 subcentimeter nodules seen at the mid part of the left lobe are not reproduced in the current study likely secondary to their small size. The right lobe of the thyroid gland shows a photopenic defect at mid to inferior pole consistent with a cold nodule likely corresponds to a 0.5 cm nodule seen on prior sonographic images. Note is made of a relatively hyperactive/hot nodule at mid pole which may or may not correspond to the dominant right superior 1.1 cm nodule seen on prior sonographic images. The trapping function appears normal. NM/NM thyroid w uptake IMPRESSION: 1. Normal radioiodine uptake. 2. The left lobe of the thyroid gland scintigraphically appear unremarkable without evidence of any superimposed discrete hot or cold nodules. 3. The right lobe of the thyroid gland is asymmetrically prominent, shows presence of both cold and hot nodules at mid to inferior part of the gland. DEXA scan April of 2021 BONE DENSITOMETRY CLINICAL INDICATION: Menopause. COMPARISON: Previous BD dated 05/17/2015 and baseline BD dated 02/08/2010. TECHNIQUE: Using a [employer] DXA System (software version: 13.1) manufactured by [email or web address], dual-energy x-ray absorptiometry was performed of the lumbar spine and left hip. The images are of good technical quality. Summary results are attached. FINDINGS: AP SPINE L1-L4: Current: BMD 0.899 g/cm2, Z-score -0.9, T-score -2.3, osteopenia, 0.2% decrease from previous, 16.4% decrease from baseline (<5% change is not significant). Prior: BMD 0.901 g/cm2. Baseline: BMD 1.076 g/cm2. LEFT FEMUR, NECK: Current: BMD 0.689 g/cm2, Z-score -1.1, T-score -2.5, osteoporosis. Prior: BMD 0.713 g/cm2. Baseline: BMD 0.773 g/cm2. LEFT FEMUR, TOTAL: Current: BMD 0.775 g/cm2, Z-score -0.8, T-score -1.8, osteopenia, 2.3% decrease from previous, 9.4% decrease from baseline (<5% change is not significant). Prior: BMD 0.793 g/cm2. Baseline: BMD 0.855 g/cm2. IDENTIFIED RISK FACTORS: Menopause, hysterectomy. HISTORY OF FRACTURE: None listed. MEDICATIONS: Calcium supplements or multivitamin, vitamin D. Assessment & Plan Assessment & Plan (1) Multinodular goiter (nontoxic): Code(s): E04.2 - Nontoxic multinodular goiter Category: Medical Plan: Patient with no family history of thyroid cancer, with no personal history of head or neck radiation who has history of multinodular goiter diagnosed in January 2023 with the help of ultrasound. She had 1 reading of low TSH in January of 2023 of 0.11 with normal free T4 levels. Subsequently thyroid uptake and scan in June of 2023 showed normal overall thyroid uptake with some increased prominence at the site of her nodules but it was indeterminate whether her 1.1 cm suspicious right lobe nodule of TR 5 had increased uptake. FNA 06/08/2024 of the 1.1 cm right superior TR 5 nodule came back nondiagnostic, [place] category 1. Likely this is a hypervascular nodule, with possibly increased uptake suggested on uptake and resulting in nondiagnostic results. Given that the nodule is so small plus likely this is I hyper functioning nodule, at this point we will hold off on repeating biopsy. I explained to the patient that the probability of malignancy nondiagnostic nodules is anywhere from 4-25% which is quite variable. At this point we will plan to repeat ultrasound in 1 year from the last 1 which would be in October 2024. Plan: -ordered TSH, free T4 for October 2024 -repeat thyroid ultrasound October 2024 -follow up in November 2024 (2) HTN (hypertension): Code(s): I10 - Essential (primary) hypertension Category: Medical Qualifiers: Hypertension type: unspecified Qualified Code(s): I10 - Essential (primary) hypertension Plan: Patient with history of hypertension since her 50s. Noted to have elevated blood pressure in the 150 systolic. She measures it at home as well sometimes and sees that it has been slightly elevated. She is on metoprolol 25 mg once day and losartan 100 mg daily and has been taking her medications regularly. She has history of sudden cardiac in the family with her mother dying at age 43. Also has history of hypokalemia in the chart with potassium level of 3.1. This has been she used to be on hydrochlorothiazide. Blood work from April 2024 showed aldosterone level of 3 hence unlikely that she has primary hyperaldosteronism. Potassium of this time was normal. However renin was noted to be suppressed at 0.06 consistent with low renin hypertension. She would benefit from minerlocorticoid receptor antagonist to better control her blood pressure. I will start her on spironolactone low dose 12.5 mg daily. I have asked her to repeat basic metabolic panel in 2 weeks and also maintain a blood pressure log. Was forward these notes to primary care physician as she would benefit from titrating up her spironolactone to better control her blood pressure however it would require a slow titration going up by 12.5 mg every 8-12 weeks. Since she does have some kidney dysfunction with an EGFR of 38, would need close monitoring of basic metabolic panel as well Plan: -start spironolactone 12.5 mg daily -basic metabolic panel in 2 weeks -recommend primary care physician to titrating up her spironolactone to better control her blood pressure however it would require a slow titration going up by 12.5 mg every 8-12 weeks. Since she does have some kidney dysfunction with an EGFR of 38, would need close monitoring of basic metabolic panel as well -counseled patient about risk of hyperkalemia, and importance of monitoring basic metabolic panel (3) Osteoporosis: Code(s): M81.0 - Age-related osteoporosis without current pathological fracture Category: Medical Qualifiers: Osteoporosis type: other Presence of current pathological fracture: without current pathological fracture Qualified Code(s): M81.8 - Other osteoporosis without current pathological fracture Plan: Patient with history of osteoporosis with T-score of-2.5 at the left femoral neck and a DEXA scan from April of 2024. She was on alendronate for a year in 2020 . . We will repeat DEXA now. Normal evaluation for secondary causes of osteoporosis for blood work from April 2024. She is taking adequate amounts of vitamin-D. Advised to improve calcium intake to at least 1000 mg daily by taking 2-3 servings of calcium rich foods daily. Advised to continue with weight-bearing exercise such as walking for at least 150 minutes a week. Plan: -repeat DEXA scan -continue vitamin-D 2000 units daily -Advised to improve calcium intake to at least 1000 mg daily by taking 2-3 servings of calcium rich foods daily. -Advised to continue with weight-bearing exercise such as walking for at least 150 minutes a week. Plan I spent 30 minutes in reviewing the record, seeing the patient and documenting in the medical record. Orders: Orders Basic Metabolic Panel 2 Weeks E04.2 - Nontoxic multinodular goiter, I10 - Essential (primary) hypertension Thyroid Stimulating Hormone 11/08/24 E04.2 - Nontoxic multinodular goiter US thyroid 11/11/24 E04.2 - Nontoxic multinodular goiter, I10 - Essential (primary) hypertension Free T4 (Free Thyroxine) 11/08/24 E04.2 - Nontoxic multinodular goiter Collagen Type I C-Telopeptide 2 Weeks M81.8 - Other osteoporosis without current pathological fracture Medications: New spironolactone 12.5 mg (1/2 x 25 mg) PO DAILY 30 tabs 5RF Patient Instructions: Record blood pressure at home and keep a log Start spironolactone 12. 5 mg daily (half a tablet) Do blood work in 2 weeks Continue metoprolol and losartan as it is Repeat ultrasound in Oct 2024 and thyroid blood work in Oct 2024 Do bone denisty scan Continue vitamin D We will follow up in November 2024 in office Registre la presi?n arterial en casa y lleve un registro Iniciar espironolactona 12, 5 mg al d?a (media tableta) Hacer an?lisis de rich en 2 semanas. Contin?e con metoprolol y losart?n carlos marleen est?n. Repetir ecograf?a en 2024 y an?lisis de rich de tiroides en 2024. Hacer lalit exploraci?n de denscopia ?sea Continuar con vitamina D Haremos seguimiento en 2024 en el cargo. Coding Level of Care Code Est Pt Level 4 (63178) Diagnoses Multinodular goiter (nontoxic) E04.2 Hypertension, unspecified type I10 Hypertension type: unspecified Other osteoporosis without current pathological fracture M81.8 Osteoporosis type: other Presence of current pathological fracture: without current pathological fracture Time Spent (min) 30
[2024-06-22 13:55] VITALS: BP 170/90
== END 2024-06-22 13:58 | disposition home or self-care (01) ==
PROVIDERS: PCP Internal Medicine; Referring Provider Internal Medicine; Visit Provider Student in an Organized Health Care Education/Training Program
DX: E04.2 Nontoxic multinodular goiter (principal); I10 Essential (primary) hypertension; M81.8 Other osteoporosis without current pathological fracture
CPT/HCPCS: 99214

== ENCOUNTER → 2024-06-22 13:22 | Outpatient (BNVA) | payer MEDICAID, SELFPAY | PROVIDERS: PCP Internal Medicine; Visit Provider Student in an Organized Health Care Education/Training Program | DX: E04.2 Nontoxic multinodular goiter (principal); M81.8 Other osteoporosis without current pathological fracture; I10 Essential (primary) hypertension | CPT/HCPCS: 99212 ==

== ENCOUNTER 2024-07-15 12:28 | Outpatient (REF) | payer MEDICAID, SELFPAY ==
--- NOTE | ~2024-07-15 | MM_ITS ---
EXAMINATION: BONE DENSITOMETRY CLINICAL INDICATION: Other osteoporosis without current pathological fracture. COMPARISON: Previous BD dated 05/21/2021 and baseline BD dated 02/08/2010. TECHNIQUE: Using a [employer] DXA System (software version: 13.1) manufactured by [employer], dual-energy x-ray absorptiometry was performed of the lumbar spine and left hip. The images are of good technical quality. Summary results are attached. FINDINGS: AP SPINE L1-L4: Current: BMD 0.924 g/cm2, Z-score -0.5, T-score -2.1, osteopenia, 2.8% increase from previous, 14.1% decrease from baseline (<5% change is not significant). Prior: BMD 0.899 g/cm2. Baseline: BMD 1.076 g/cm2. LEFT FEMUR, NECK: Current: BMD 0.692 g/cm2, Z-score -1.0, T-score -2.5, osteoporosis. Prior: BMD 0.689 g/cm2. Baseline: BMD 0.773 g/cm2. LEFT FEMUR, TOTAL: Current: BMD 0.788 g/cm2, Z-score -0.5, T-score -1.7, osteopenia, 1.7% increase from previous, 7.8% decrease from baseline (<5% change is not significant). Prior: BMD 0.775 g/cm2. Baseline: BMD 0.855 g/cm2. IDENTIFIED RISK FACTORS: Menopause. Hysterectomy. HISTORY OF FRACTURE: None listed. MEDICATIONS: Vitamin D. MM/XR DEXA axial skeleton IMPRESSION: 1. DIAGNOSIS: Osteoporosis based on the lowest T-score value of -2.5 in the femoral neck applying World Health Organization criteria. 2. 10-YEAR FRACTURE RISK PREDICTION, FRAX: According to the guidelines, FRAX calculation should only be performed on patients in the osteopenia bone density category. Therefore, FRAX was not performed on this patient. 3. Treatment Recommendations: NOF guidelines recommend consideration for treatment in postmenopausal women and men age 50 and older presenting with the following: -A hip or vertebral (clinical or morphometric) fracture. -T-score less than or equal to -2.5 at the femoral neck or spine after appropriate evaluation to exclude secondary causes. -Low bone mass at the hip or spine and a 10-year fracture probability by FRAX of greater than or equal to 3% for hip fracture or greater than or equal to 20% for major osteoporotic fracture based on the [place] adapted WHO algorithm. 4. Other Recommendations: All treatment decisions require clinical judgment and consideration of individual patient factors, including patient preferences, comorbidities, previous drug use, risk factors not captured in the FRAX model (e.g. frailty, falls, vitamin D deficiency, increased bone turnover, interval significant decline in bone density) and possible under or overestimation of fracture risk by FRAX. Additional medical evaluation for secondary cause of low bone mineral density may be appropriate. FUTURE SCAN RECOMMENDATION: People with diagnosed cases of osteoporosis or at high risk for fracture should have regular bone mineral density tests. For patients eligible for Medicare, routine testing is allowed once every 2 years. The testing frequency can be increased to one year for patients who have rapidly progressing disease, those who are receiving or discontinuing medical therapy to restore bone mass, or have additional risk factors. Electronically signed by: Brittni Perez MD 07/18/2024 09:59 AM EDT
== END 2024-07-15 12:29 | disposition home or self-care (01) ==
LOC: HO.MAMMO 12:28
PROVIDERS: PCP Internal Medicine; Visit Provider Student in an Organized Health Care Education/Training Program
DX: M81.8 Other osteoporosis without current pathological fracture (principal)
CPT/HCPCS: 77080

== ENCOUNTER 2024-08-04 07:58 | Outpatient (REF) | payer MEDICAID, SELFPAY ==
[2024-08-04 09:17] LABS: Anion Gap 11 (12-20); Blood Urea Nitrogen 12 mg/dL (9-16); Calcium 9.8 mg/dL (8.4-10.2); Carbon Dioxide 31 mmol/L (22-29); Chloride 102 mmol/L (96-108); Estimated Glomerular Filt Rate > 60; Glucose Random 91 mg/dL (60-115); Potassium 3.5 mmol/L (3.3-5.1); Sodium 140 mmol/L (135-145)
[2024-08-04 09:37] LABS: Vitamin D 25-OH Total 55.2 ng/mL (>30)
[2024-08-10 05:44] LABS: Collagen Type I C-Telopeptide 482 pg/mL (see note)
== END 2024-08-04 07:59 | disposition home or self-care (01) ==
LOC: HO.LAB 07:58
PROVIDERS: PCP Internal Medicine; Visit Provider Student in an Organized Health Care Education/Training Program
DX: E55.9 Vitamin D deficiency, unspecified (principal); I10 Essential (primary) hypertension; E04.2 Nontoxic multinodular goiter; M81.8 Other osteoporosis without current pathological fracture
CPT/HCPCS: 36415; 80048; 82306; 82523

== ENCOUNTER 2024-11-03 13:23 | Outpatient (REF) | payer MEDICAID, SELFPAY ==
[2024-11-03 16:10] LABS: Anion Gap 14 (12-20); Blood Urea Nitrogen 14 mg/dL (9-16); Calcium 10.1 mg/dL (8.4-10.2); Carbon Dioxide 28 mmol/L (22-29); Chloride 99 mmol/L (96-108); Estimated Glomerular Filt Rate > 60; Glucose Random 101 mg/dL (60-115); Potassium 3.6 mmol/L (3.3-5.1); Sodium 137 mmol/L (135-145)
== END 2024-11-03 13:24 | disposition home or self-care (01) ==
LOC: HO.HHCL 13:23
PROVIDERS: Visit Provider Internal Medicine
DX: I10 Essential (primary) hypertension (principal)
CPT/HCPCS: 36415; 80048

== ENCOUNTER 2024-11-08 11:43 | Outpatient (REF) | payer MEDICAID, SELFPAY ==
--- OUTSIDE RECORDS SUMMARY | 2024-11-08 13:17 | XMS_ITS | Encounter Summary ---
Author Organization [employer] Address [address] [facility] 7t [place] [address] Care Team Providers Care Housing Grant Analyst Name Role Phone Luz Marina Arias MD Primary Care Provider + Andrew Prasad PharmD Unavailable [phone] Reason for Visit * Consultation (Routine) - Authorized Specialty Diagnoses / Procedures Referred By Contac t Referred To Contact Pharmacy Diagnoses Essential hypertension Luz Marina Arias MD [address] [place] [address] Phone: tel: fax: Referral ID Status Reason Start Date Expiration Date Visits Requested Visits Authorized [id number] Authorized Consult and Treat 10/06/2024 10/06/2025 6 6 Encounter Details Date Type Department Care Team (Late st Contact Info) Description 10/26/2024 2:[address] [facility] MEDICINE [address] [place], [place] [phone] Andrew Prasad, PharmD [address] [place], [place] [phone] Essential hypertension (Primary Dx) Social History Tobacco Use Types Packs/Day Years Used Date Smoking Tobacco: Never Passive Smoke Exposure: Never Smokeless Tobacco: Never Alcohol Use Standard Drinks/Week Comments Never 0 (1 standard drink = 0.6 oz pur e alcohol) PHQ-2 Answer Date Recorded Patient Health Questionnaire-2 Score 0 02/18/2023 Housing Stability Answer Date Recorded What is your housing situation today? I have gardenia linares 07/27/[address] you li ve. Do you have problems with any of the following? None of the above 07/27/2023 Food Insecurity Answer Date Recorded Within the past 12 months, y ou worried that your food would run out before you got money to buy more: Never True 07/27/2023 Within the past 12 months,th e food you bought just didn't last and you didn't have enough money to get more: Never True Transportation Answer Date Recorded In the past 12 months, has l ack of transportation kept you from medical appts, meetings, work or from getting things needed for daily living? No 07/27/2023 Utilities Answer Date Recorded In the past 12 months, has t he [employer], gas, oil or water [employer] threatened to shut off services in your home? No 07/27/2023 Depression Answer Date Recorded Patient Health Questionnaire-2 Score 0 02/18/2023 Comments No Sex and Gender Information Value Date Recorded Sex Assigned at Female 07/28/2022 10:19 AM EDT Legal Sex Female 10:19 AM EDT Gender Identity Female 07/28/2022 10:19 AM EDT Sexual Orientation Straight 07/28/2022 10 :19 AM EDT documented as of this encounter Progress Notes * Andrew Prasad, PharmD - 10/26/2024 2:30 PM EST Pharmacy Consult Visit Type: CDTM - Hypertension Pharmacist: Andrew Prasad, PharmD Angelic Alonso is a 64 y.o. year old patient here for follow-up visit completed in person. Subjective History: General / Intake (updated 06/17/24) Allergies: is allergic to lisinopril. Read/Write: Yes, in [place] Recent Hospitalizations: No Social History as reported by patient: Tobacco: Denies Alcohol: Denies Caffeine: Current, cup of coffee with milk, no sugar in the morning Illicit drugs: Denies Diet: Eats self prepared foods, denies fast food, limits fried food, does not use salt containing seasonings Exercise: walks 5 times a week up to an hour a day Adherence / patient self-management Takes from vials Manages medications independently Patient reports up to 2 missed doses of medications a week, usually PM medications. Refill history demonstrates adherence to antihypertensive medications. OTC medication, vitamin, supplement use: Calcium carbonate, Fish oil Hypertension Patient reports the following medication administration schedule: Metoprolol succinate and spironolactone at night, losartan in the morning Denies experiencing any MARCELO to current therapy . Patient presented to [facility] 06/22/2024 (Dr. Miller): BP = 170/90 mmHg, 56 bpm, I will start her on spironolactone low dose 12.5 mg daily. I have asked her to repeat basic metabolic panel in2 weeks and also maintain a blood pressure log. Was forward these notes to primary care physician as she would benefit from titrating up her spironolactone to better control her blood pressure however it would require a slow titration going up by 12.5 mg every 8-12 weeks. Since she does have some kidney dysfunction with an EGFR of 38, would need close monitoring of basic metabolic panel as well Patient reports getting labs drawn within 4-5 days after endocrinology visit. Results are not in the chart. Pertinent negatives include chest pain, head ache, blurry vision, dizziness Patient does not SMBP regularly due to busy work schedule. Today reports she has been checking overthe last week. Date Blood pressure (mmHg) Heart rate (bpm) 10/21/24 127/82 - 10/22/24 136/76 - 10/25/24 137/86 - Objective History: Treatment history/considerations: PMH: HTN, Osteoporosis, Osteoarthritis, Vitamin D Deficiency, MDD, Vertigo, Peroneal Neuropathy, CTS Medications: Hydrochlorothiazide: DC 10/2023 due to hypokalemia Recent labs: Renal function (05/16/2024): eGFR: 38 mL/min/1.73 m2 SCr = 1.40 mg/dL CrCl (IBW)= 37 mL/min Lab Results Component Value Date ALT 15 02/02/2024 AST 22 02/02/2024 LDLCHOLCAL 120 (H) 12/08/2023 TRIG 85 12/08/2023 K 3.8 05/16/2024 NA 140 05/16/2024 CREATININE 1.40 05/16/2024 EGFR 38 05/16/2024 Recent blood pressure readings: BP Readings from Last 4 Encounters: 06/27/24 (!) 144/83 06/17/24 (!) 148/79 05/17/24 121/82 05/13/24 (!) 144/76 Pulse Readings from Last 4 Encounters: 06/27/24 64 06/17/24 56 05/17/24 100 05/13/24 67 Immunizations Due: COVID-19, Influenza (annual), and Shingrix series (age > 50 yo) Patient declines Covid-19 and Influenza vaccines. Agreeable to appointment for the administration of Shingrix at [facility] pharmacy 11/01/2024. Preferred Pharmacy: [facility]/pharmacy #[id number] [place] [address] Assessment/Plan: Hypertension Pharmacotherapy: Losartan 100 mg po daily Metoprolol Succinate ER 25mg PO Daily Spironolactone 12.5 mg po daily Goals of Therapy per JNC 8: Achieve BP <150/90mmHg (Age >60 w/o history of DM or CKD) Plan: Unable to measure BP during today's televisit, but last 3 SMBP measurements this week suggest BP isat goal. Patient agrees to continue current therapy. Patient agrees to have BMP drawn within the next week to monitor potassium and renal function following the initiation of potassium sparing diuretic. Patient agrees to CDTM FU in 1 month for BP check. If BMP WNL can continue to increase spironolactone by 12.5 mg every 8-12 weeks if needed, as recommended by medical and health services manager. Education: Reviewed benefits of DASH diet and reduced caffeine intake for improved BP control. Counseling provided to SMBP daily & log results for review in follow up. Reviewed BP goals, patient instructed to call if extremes of BP are noted prior to next scheduled visit. documented in this encounter Plan of Treatment Upcoming Encounters Date Type Department Care Team (Late st Contact Info) Description 11/23/2024 3:30 PM EST Telemedicine [address] [phone] Andrew Prasad PharmD [address] [place] [phone] 12/23/2024 11:15 AM EDT Office Visit [address] [address] Luz Marina Arias MD [address] [place] [phone] Scheduled Orders Name Type Priority Associated Diagnoses Orde r Schedule Basic Metabolic Panel Lab Routine Essential hypertension Expected: 10/26/2024 (Approximate), Expires: 10/26/2025 documented as of this encounter Goals Goal Patient Goal Type Associated Problems Recent Progress Patient-Stated? Author Blood Pressure < 150/90 Blood Pressure 144/83(2023 2:43 PM EDT) No Andrew Prasad PharmD Note: Per JNC-8: Age >60 w/o history of CKD or DM documented as of this encounter Visit Diagnoses Diagnosis Essential hypertension- Primary Unspecified essential hypertension documented in this encounter Care Teams Housing Grant Analyst Relationship Specialty Start Date End Date Luz Marina Arias MD [address] [place] [phone] PCP - General Family Medicine 06/29/18 Andrew Prasad PharmD [address] [place] [address] Pharmacist Internal Medicine 07/10/23 documented as of this encounter
--- OUTSIDE RECORDS SUMMARY | 2024-11-08 13:17 | XMS_ITS | Encounter Summary ---
Author Organization [email or web address] [facility] Address [address] [place] [address] 7t [place] [address] Care Team Providers Care Sane Nurse Name Role Phone Luz Marina Arias MD Primary Care Provider + Andrew Prasad PharmD Unavailable [phone] Encounter Details Date Type Department Care Team (Latest Contact Info) Description 04/29/2021 Abstract [facility] CONVERSIONS Dental, Provider, DDS Social History Tobacco Use Types Packs/Day Years Used Date Smoking Tobacco: Never Assessed Comments Unknown Sex and Gender Information Value Date Recorded Sex Assigned at Female 07/28/2022 10:19 AM EDT Legal Sex Female 10:19 AM EDT Gender Identity Female 07/28/2022 10:19 AM EDT Sexual Orientation Straight 07/28/2022 10 :19 AM EDT documented as of this encounter Plan of Treatment Upcoming Encounters Date Type Department Care Team (Late st Contact Info) Description 11/23/2024 3:30 PM EST Telemedicine [facility] MEDICINE [address] [place] [address] Andrew Prasad, PharmD [address] [place] [address] 12/23/2024 11:15 AM EDT Office Visit [facility] [address] [place] [address] Luz Marina Arias MD [address] [place], [place] documented as of this encounter Visit Diagnoses Not on filedocumented in this encounter Care Teams Sane Nurse Relationship Specialty Start Date End Date Luz Marina Arias MD [address] [place] [address] PCP - General Family Medicine 06/29/18 Andrew Prasad, SunD [address] [place] [address] Pharmacist Internal Medicine 07/10/23 documented as of this encounter
--- OUTSIDE RECORDS SUMMARY | 2024-11-08 13:17 | XMS_ITS | Encounter Summary ---
Author Organization [employer] Address [address] [facility] 7t [place] [address] Care Team Providers Care Technician Test Systems Name Role Phone Luz Marina Arias MD Primary Care Provider + Andrew Prasad PharmD Unavailable [phone] Reason for Visit * Reason Comments Med Refill Encounter Details Date Type Department Care Team ([facility] st Contact Info) Description 11/01/2024 Refill [facility] MEDICINE [address] [place], [place] [phone] Luz Marina Arias MD [address] [place], [place] [phone] Social History Tobacco Use Types Packs/Day Years [...] the past 12 months, has t he electric, gas, oil or water company threatened to shut off services in your [...] Info) Description 11/23/2024 3:30 PM EST Telemedicine [facility] MEDICINE [address] [place] [address] Andrew Prasad, PharmKathryn [address] [place] [address] 12/23/2024 11:15 AM EDT Office Visit [address] [address] Luz Marina Arias MD [address] [place] [phone] documented as of this encounter Goals Goal Patient Goal Type Associated Problems Recent Progress Patient-Stated? Author Blood Pressure < 150/90 Blood Pressure 144/83(2023 2:43 PM EDT) No Andrew Prasad, Melisa Note: Per JNC-8: Age >60 w/o history of CKD or DM documented as of this encounter Visit Diagnoses Not on filedocumented in this encounter Care Teams Technician Test Systems Relationship Specialty Start Date End Date Luz Marina Arias MD [address] [place] [phone] PCP - General Family Medicine 06/29/18 Andrew Prasad, PharmD [address] [place] [address] Pharmacist Internal Medicine 07/10/23 documented as of this encounter
--- OUTSIDE RECORDS SUMMARY | 2024-11-08 13:17 | XMS_ITS | Encounter Summary ---
Author Organization [employer] Address [address] [place] [address] 7t [place] [address] Care Team Providers Care Patient Access Specialist Name Role Phone Luz Marina Arias MD Primary Care Provider + Andrew Prasad PharmD Unavailable [phone] Encounter Details Date Type Department Care Team (Latest Contact Info) Description 07/30/2022 Abstract [facility] CONVERSION[facility] Dental, Provider, DDS Social History Tobacco [...] Info) Description 11/23/2024 3:30 PM EST Telemedicine [facility] MEDICINE [address] [place] [address] Andrew Prasad, PharmD [address] [place] [address] 12/23/2024 11:15 AM EDT Office Visit [facility] [address] [place] [address] Luz Marina Arias MD [address] [place], [place] documented as of this encounter Visit Diagnoses Not on filedocumented in this encounter Care Teams Patient Access Specialist Relationship Specialty Start Date End Date Luz Marina Arias MD [address] [place] [address] PCP - General Family Medicine 06/29/18 Andrew Prasad, SunD [address] [place] [address] Pharmacist Internal Medicine 07/10/23 documented as of this encounter
--- OUTSIDE RECORDS SUMMARY | 2024-11-08 13:17 | XMS_ITS | Encounter Summary ---
Author Organization [employer] Address [address] [facility] 7t [place] [address] Care Team Providers Care School Business Manager Name Role Phone Luz Marina Arias MD Primary Care Provider + Andrew Prasad PharmD Unavailable [phone] Encounter Details Date Type Department Care Team (Late st Contact Info) Description 11/03/2024 Orders Only [facility] MEDICINE [address] [place], [place] [phone] Luz Marina Arias MD [address] [place], [place] [phone] Social History Tobacco Use Types Packs/Day Years Used Date Smoking Tobacco: Never Passive Smoke Exposure: Never Smokeless Tobacco: Never Alcohol Use Standard Drinks/Week Comments Never 0 (1 standard drink = 0.6 oz pur e alcohol) PHQ-2 Answer Date Recorded Patient Health Questionnaire-2 Score 0 02/18/2023 Housing Stability Answer Date Recorded What is your housing situation today? I have gardeniahiren linares 07/27/[address] you [...] Info) Description 11/23/2024 3:30 PM EST Telemedicine [facility] MEDICINE [address] [place] [address] Andrew Prasad, PharmD [address] [place] [address] 12/23/2024 11:15 AM EDT Office Visit [facility] [address] [place] [address] Luz Marina Arias MD [address] [place] [address] documented as of this encounter Goals Goal Patient Goal Type Associated Problems Recent Progress Patient-Stated? Author Blood Pressure < 150/90 Blood Pressure 144/83(2023 2:43 PM EDT) No Andrew Prasad, PharmKathryn Note: Per JNC-8: Age >60 w/o history of CKD or DM documented as of this encounter Procedures Procedure Name Priority Date/Time Associated Diagnosis Comments BASIC METABOLIC PANEL Routine 11/03/2024 1:30 PM EST documented in this encounter Results * Basic Metabolic Panel (11/03/2024 1:30 PM EST) Sodium 137 135 - 145 mmol/L [facility] Potassium 3.6 3.3 - 5.1 mmol/L [facility] Chloride 99 96 - 108 mmol/L [facility] Carbon Dioxide 28 22 - 29 mmol/L [facility] Anion Gap 14 12 - 20 [facility] Urea Nitrogen (BUN) 14 9 - 16 mg/dL [facility] Creatinine, Serum 0.84 0.5 - 1.4 mg/dL [facility] Estimated Glomerular Filt Rate >60 [facility] Comment:Chronic Kidney Disea se: Estimated GFR < 60 mL/min/[id number] Kidney Disease: Estimated GFR < 15 mL/min/1.73m2 Glucose 101 60 - 115 mg/dL [facility] Calcium 10.1 8.4 - 10.2 mg/dL [facility] 11/03/2024 1:30 PM EST 11/03/2024 3:52 PM EST us Luz Marina Arias MD LAB BLOOD ORDERABLES Fin al Result [facility] [address] [place] [address] [phone] documented in this encounter Visit Diagnoses Not on filedocumented in this encounter Care Teams School Business Manager Relationship Specialty Start Date End Date Luz Marina Arias MD [address] [place] [address] PCP - General Family Medicine 06/29/18 Andrew Prasad PharmD [address] [place] [address] Pharmacist Internal Medicine 07/10/23 documented as of this encounter
--- OUTSIDE RECORDS SUMMARY | 2024-11-08 13:17 | XMS_ITS | Encounter Summary ---
Author Organization [employer] Address [address] [facility] 7t [place] [address] Care Team Providers Care Financing Analyst Name Role Phone Luz Marina Arias MD Primary Care Provider + Andrew Prasad PharmD Unavailable [phone] Encounter Details Date Type Department Care Team (Late Contact Info) Description 03/12/2023 Abstract [facility] MEDICINE [address] [place] [address] Luz Marina Arias MD [address] [place] [address] Social History Tobacco Use Types Packs/Day Years Used Date Smoking Tobacco: Never Passive Smoke Exposure: Never Smokeless Tobacco: Never Alcohol Use Standard Drinks/Week Comments Never 0 (1 standard drink = 0.6 oz pur e alcohol) PHQ-2 Answer Date Recorded Patient Health Questionnaire-2 Score 0 02/18/2023 Depression Answer Date Recorded Patient Health Questionnaire-2 Score 0 02/18/2023 Comments Unknown Sex and Gender Information Value Date Recorded Sex Assigned at Female 07/28/2022 10:19 AM EDT Legal Sex Female 10:19 AM EDT Gender Identity Female 07/28/2022 10:19 AM EDT Sexual Orientation Straight 07/28/2022 10 :19 AM EDT COVID-19 Exposure Response Date Recorded In the last 10 days, have yo u been in contact with someone who was confirmed or suspected to have Coronavirus/COVID-19? No / Unsure 02/18/2023 11:39 AM EDT documented as of this encounter Plan of Treatment Upcoming Encounters Date Type Department Care Team (Late Contact Info) Description 11/23/2024 3:30 PM EST Telemedicine [facility] MEDICINE [address] [place] [phone] Andrew Prasad, Melisa [address] [place] [address] 12/23/2024 11:15 AM EDT Office Visit [facility] MEDICINE [address] [place] [address] Luz Marina Arias MD [address] [place] [address] documented as of this encounter Procedures Procedure Name Priority Date/Time Associated Diagnosis Comments COLONOSCOPY Routine 02/27/2014 10:35 AM EDT documented in this encounter Results * Colonoscopy (02/27/2014 10:35 AM EDT) Colonoscopy Normal Normal Narrative Roma Medley - 02/27/2014 10:35 AM EDT Recommended 10 year follow up ( [facility]) Historical Provider HEALTH MAINTENANCE Final Result documented in this encounter Visit Diagnoses Not on filedocumented in this encounter Care Teams Financing Analyst Relationship Specialty Start Date End Date Luz Marina Arias MD [address] [place] [address] [phone] PCP - General Family Medicine 06/29/18 Andrew Prasad, Melisa [address] [place] [address] [phone] Pharmacist Internal Medicine 07/10/23 documented as of this encounter
--- OUTSIDE RECORDS SUMMARY | 2024-11-08 13:17 | XMS_ITS | Encounter Summary ---
Author Organization [employer] Address 75 [facility] 7t [place] [address] Care Team Providers Care Web Site Specialist Name Role Phone Luz Marina Arias MD Primary Care Provider + Andrew Prasad PharmD Unavailable [phone] Reason for Visit * Reason Comments Med Refill Encounter Details Date Type Department Care Team ([facility] st Contact Info) Description 07/10/2024 Refill [facility] MEDICINE [address] [place], [place] [phone] Lucero Gonzalez MD [address] [place] [address] Onycholysis Social History Tobacco Use Types Packs/Day Years [...] Info) Description 11/23/2024 3:30 PM EST Telemedicine [address] [address] Andrew Prasad, Melisa [address] [place] [phone] 12/23/2024 11:15 AM EDT Office Visit [address] [address] Luz Marina Arias MD [address] [place] [phone] documented as of this encounter Goals Goal Patient Goal Type Associated Problems Recent Progress Patient-Stated? Author Blood Pressure < 150/90 Blood Pressure 144/83(2023 2:43 PM EDT) No Andrew Prasad PharmD Note: Per JNC-8: Age >60 w/o history of CKD or DM documented as of this encounter Visit Diagnoses Diagnosis Onycholysis Other specified disease of nail documented in this encounter Care Teams Web Site Specialist Relationship Specialty Start Date End Date Luz Marina Arias MD [address] [place] [phone] PCP - General Family Medicine 06/29/18 Andrew Prasad, Melisa [address] [place] [phone] Pharmacist Internal Medicine 07/10/23 documented as of this encounter
--- OUTSIDE RECORDS SUMMARY | 2024-11-08 13:18 | XMS_ITS | Encounter Summary ---
Author Organization [employer] Address 75 [facility] 7t [place] [address] Care Team Providers Care Entry Table Operator Name Role Phone Luz Marina Arias MD Primary Care Provider + Andrew Prasad PharmD Unavailable Reason for Visit * Reason Onset Date Comments triage 01/29/2023 Encounter Details Date Type Department Care Team ([facility] st Contact Info) Description 01/29/2023 Telephone [facility] MEDICINE [address] [place], [place] [phone] Luz Marina Arias MD [address] [place], [place] [phone] triage Social History Tobacco Use Types Packs/Day Years Used Date Smoking Tobacco: Never Passive Smoke Exposure: Never Smokeless Tobacco: Never Comments Unknown Sex and Gender Information Value [...] suspected to have Coronavirus/COVID-19? No / Unsure 01/26/2023 1:19 PM EDT documented as of this encounter Miscellaneous Notes * Telephone Encounter - Emily Valverde RN - 01/29/2023 2:41 PM EDT Triage call with [employer] Intern [place] [id number] Pt reports woke up this morning with a rash. Rash is described as smooth, not red and not itchy. Rash is located on face, neck, arms and thighs. Pt denies any changes in laundry detergent, soaps or other cosmetics/creams. Pt denies difficulty breathing or chest tightness. Pt has started to take ibuprofen but, had the rash prior to taking this today and no other new medications. Pt is advised to come to [facility] today or tomorrow morning and Pt agrees. Protocol Used: Rash or Redness - Widespread (Adult) Protocol-Based Disposition: See in Office or Video Visit Today or Tomorrow Video visit not offered Positive Triage Question: * Mild widespread rash * All higher-acuity triage questions were negative Care Advice Discussed: * Reassurance and Education - Widespread Rash * Reasons To Call Back - Rash becomes purple or blood-colored or blister-like - Fever occurs or severe itching - You become worse * Telephone Encounter - Shonna Gaming - 01/29/2023 2:07 PM EDT Symptom: Rash or Redness - Widespread Outcome: Schedule a same-day appointment or talk to a nurse or provider today Reason: Caller denied all higher acuity questions The caller accepted this outcome documented in this encounter Plan of Treatment Upcoming Encounters Date Type Department Care Team (Late st Contact Info) Description 11/23/2024 3:30 PM EST Telemedicine [facility] MEDICINE [address] [place] [phone] Andrew Prasad, PharmD [address] [place] [address] 12/23/2024 11:15 AM EDT Office Visit [facility] MEDICINE [address] [place] [address] Luz Marina Arias MD [address] [place] [address] documented as of this encounter Visit Diagnoses Not on filedocumented in this encounter Care Teams Entry Table Operator Relationship Specialty Start Date End Date Luz Marina Arias MD [address] [place] [phone] PCP - General Family Medicine 06/29/18 Andrew Prasad, SunD [address] [place] [address] Pharmacist Internal Medicine 07/10/23 documented as of this encounter
--- OUTSIDE RECORDS SUMMARY | 2024-11-08 13:18 | XMS_ITS | Clinical Summary ---
Author Organization [employer] Address [address] [facility] [address] [place] [address] Care Team Providers Care Spring Fitter Helper Name Role Phone Luz Marina Arias MD Primary Care Provider + Andrew Prasad PharmD Unavailable [phone] Allergies Active Allergy Reactions Criticality Noted Date Comments Lisinopril Cough 09/02/2017 Medications gabapentin (Neurontin) 100 MG capsule take 1 capsule by oral route qhs 01/22/20 21 Active omega-3 (Fish Oil) 1000 MG capsule OTC- Takes 1 capsule by mouth daily Active calcium carbonate (Os-Boston) 1250 (500 Ca) MG tablet OTC- take 1 tablet by mouth daily 07/23/20 21 Active triamcinolone (Kenalog) 0.1 % cream Apply topically if needed in the morning and at bedtime (pain and swelling). 30 g 2 02/23/20 24 Active ketoconazole (NIZOral) 2 % shampooIndicatio ns:Telogen effluvium Apply topically 2 (two) times a week. 120 mL 1 03/14/20 24 Active losartan (Cozaar) 100 MG tabletIndication s:Essential hypertension Take 1 tablet (100 mg) by mouth Once per day. 90 tablet 3 05/13/20 24 Active metoprolol succinate XL (Toprol XL) 25 MG 24 hr tabletIndication s:Essential hypertension Take 1 tablet by mouth once daily 90 tablet 3 05/13/20 24 Active spironolactone (Aldactone) 25 MG tablet Take 12.5 mg by mouth Once per day. Active fluticasone (Flonase) 50 MCG/ACT nasal spray SPRAY 1 SPRAY INTO EACH NOSTRIL EVERY DAY 48 mL 09/26/20 24 Active cholecalciferol VITAMIN D (Vitamin D-3) 50 MCG (2000 UT) capsule TOME 1 CAPSULA POR VIA ORAL TODOS LOS OBRIEN 90 capsule 1 11/01/19 25 Active cholecalciferol VITAMIN D (Vitamin D-3) 50 MCG (2000 UT) capsule TOME BAYRON CAPSULA TODOS LOS OBRIEN 90 capsule 1 05/06/20 24 025 Discontinued Active Problems Problem Noted Date Diagnosed Date Impacted cerumen of left ear 06/27/2024 Assessment & Plan (06/27/2024 3:19 PM EDT): Use Debrox otic velma 1-2w prior to ear lavage Schedule appt w RN for ear lavage. Viral upper respiratory tract infection 06/27/20 Assessment & Plan (06/27/2024 3:20 PM EDT): Neg covid/flu tests. Rest (sleep at least 8 hours a night). Out of work today and tomorrow. Hydrate with plenty of water (avoid caffeine and alcohol). Use saline nose drops to loosen mucus + Fluticasone nasal daily x 1w Take Acetaminophen (Tylenol??)/Ibuprofen as needed to reduce fever, headache, body aches or discomfort Gargle with salt water and use throat sprays/lozenges for throat pain. Use heated, humidified air. If you do not have a humidifier, take hot showers. Cover coughs and sneezes using the crook of your elbow. Elevated liver enzymes 01/25/2024 Assessment & Plan (01/25/2024 2:49 PM EDT): - repeat LFTs and hepatisis profile and f/u PRN Pure hypercholesterolemia 01/25/2024 Assessment & Plan (01/25/2024 3:00 PM EDT): LDL has been stable, no need for medications at this time We discussed re rx options. Recommended moderate amount of exercise and increase consumption of fruit, vegetables, fish and high fiber foods. Should decrease consumption of highly saturated fats or trans fats. Thyroid nodule 01/25/2024 Assessment & Plan (01/25/2024 2:49 PM EDT): - seen by endocrinology (Dr. Islas manufacturing teacher) - will reach out to them for endocrinology referral to [facility] Hypokalemia 10/08/2023 Assessment & Plan (10/08/2023 1:17 PM EST): ? 2/2 to HCTZ Repeat BMP and FUin 4 wks Cont KCL Encounter for cervical Pap smear with pelvic exa m 08/14/2023 Visit for pelvic exam 08/14/2023 Assessment & Plan (08/14/2023 10:58 AM EST): Pt does not have a cervix, she is s/p PAH/B9 No PAP smear performed today, no need for PAP smear any longer Hair loss 08/14/2023 Assessment & Plan (10/08/2023 1:19 PM EST): Most likely s/p thyroiditis + postmenopausal changes, no specific areas of alopecia Reassurance, discussed w/ pt her hair may grow back some Will refer to dermatology per her request Assessment & Plan (08/14/2023 11:00 AM EST): No areas of alopecia, hair is fairly normal for a postmenopausal woman I explained to her that increase hair loss might be secondary to recent episode of thyroiditis. FU in 4 month Screening mammogram, encounter for 08/03/2023 Primary osteoarthritis, left shoulder 02/17/2023 Low vision, both eyes 02/17/2023 Medial epicondylitis 02/17/2023 Localized osteoarthritis of left knee 02/17/2023 Influenza-like symptoms 02/17/2023 Greater trochanteric pain syndrome 02/17/2023 Hip pain 02/17/2023 Chronic low back pain 02/17/2023 Tendinosis 02/17/2023 Suspected COVID-19 virus infection 02/17/2023 Shoulder pain 02/17/2023 Vertigo 02/08/2019 Assessment & Plan (01/25/2024 2:49 PM EDT): - Resolved Recurrent major depression in partial remission 10/06/2017 Essential hypertension 09/09/2016 Assessment & Plan (06/27/2024 3:16 PM EDT): Fairly controlled. Compliant w/meds Continue Losartan +Metoprolol + Spironolactone, labs are normal. Counseled re low salt diet/increase moderate physical activity. Check home BP BIW and prn CP/DOCKERY/BUNCH Non smoking patient. F/u in 5 months Assessment & Plan (01/25/2024 2:58 PM EDT): Fairly controlled. Compliant w/meds Continue Losartan +Metoprolol same dose Counseled re low salt diet/increase moderate physical activity. Check home BP BIW and prn CP/DOCKERY/BUNCH Non smoking patient. Order labs F/u in 5 months Assessment & Plan (11/06/2023 12:47 PM EST): Uncontrolled, I will DC HCTZ due to hypokalemia and start her on Losartan Cont metoprolol 12.5mg BID Order BMP and FU at [facility] clinic in 2-3 wks and I will fu w/ her in 2 m Assessment & Plan (10/08/2023 1:17 PM EST): DC amlodipine and cont HCTZ + metoprolol only Fu w/ me in 4 wks w/ labs Assessment & Plan (08/14/2023 11:00 AM EST): Order labs Fu with me in 4 months Assessment & Plan (08/05/2023 9:03 AM EST): Controlled. Compliant w/meds Continue lisinopril/hctz + amlodipine same dose Counseled re low salt diet/increase moderate physical activity. Check home BP BIW and prn CP/DOCKERY/BUNCH Non smoking patient. Hydrochlorothiazide and metoprolol Assessment & Plan (02/18/2023 12:45 PM EDT): Fairly controlled. Continue losartan 50 mg Counseled re low salt diet/increase moderate physical activity. Check home BP BIW and prn CP/DOCKERY/BUNCH Non smoking patient. Osteoporosis 05/17/2015 Vitamin D deficiency 04/25/2015 Peroneal neuropathy 04/08/2013 Depressive disorder 04/08/2013 Carpal tunnel syndrome 04/08/2013 Fibromyositis 04/08/2013 Resolved Problems Problem Noted Date Diagnosed Date Resolved Date Thyroiditis 02/18/2023 06/27/2024 Assessment & Plan (08/05/2023 9:03 AM EST): Been resolved, currently euthyroid Thyroid scan pending and follow up with manufacturing teacher Patient will have influenza immunization and denied COVID immunization Assessment & Plan (02/18/2023 12:43 PM EDT): TFT test seems to be preserved. Repeat TSH order Thyroid us to define thyroid nodules refer to manufacturing teacher. Encounters Date Type Department Care Team Description 11/03/2024 Orders Only [facility] [address] [facility] [place] [address] Luz Marina Arias MD 11/01/2024 Refill [facility] [address] [facility] [place] [address] Luz Marina Arias MD 10/26/2024 2:30 PM EST Telemedicine [facility] [address] [facility] [place] [address] Andrew Prasad, SunD Essential hypertension (Primary Dx) 09/30/2024 Telephone [facility] [address] [facility] [place] [address] Luz Marina Arias MD November recall 09/30/2024 Telephone [facility] [address] [facility] [place] [address] Luz Marina Arias MD 09/24/2024 Refill [facility] [address] [facility] [place] [address] Luz Marina Arias MD from Last 3 Months Immunizations Name Administration Dates Next Due Hep B, adult 07/27/2012,11/01/2009,09/03/2009 Influenza Injectable Quadriv alant Preservative Free IIV4 MDCK 08/24/2021,08/04/2018 Influenza injectable quadriv alent IIV4 with preservative 06/19/2016,09/17/2015 Influenza injectable quadriv alent preservative free 08/03/2023,07/01/2022,11/01/2020,2018,07/09/2017 Influenza, IIV3, injectable 08/13/2010 Influenza, Split (incl. jhonny fied surface antigen) 07/22/2012 Influenza, seasonal, injecta ble, preservative free 08/05/2018 TD (adult), 2 Lf tetanus tox oid, preservative free, adsorbed 09/03/2009 Tdap 01/03/2014 Zoster, live 06/17/2019 Family History Medical History Relation Name Comments Hypertension Father Coronary artery disease Mother Hypertension Mother Relation Name Status Comments Father Mother Social History Tobacco Use Types Packs/Day Years Used Date Smoking Tobacco: Never Passive Smoke Exposure: Never Smokeless Tobacco: Never Tobacco Cessation:Counseling Given: Not Answered Alcohol Use Standard Drinks/Week Comments Never 0 [...] Orientation Straight 07/28/2022 10 :19 AM EDT Last Filed Vital Signs Vital Sign Reading Time Taken Comments Blood Pressure 144/83 06/27/2024 2:43 PM EDT Pulse 64 06/27/2024 2:43 PM EDT Temperature 36.1 ??C (97 ??F) 06/27/2024 2:43 PM EDT Respiratory Rate 16 06/27/2024 2:43 PM EDT Oxygen Saturation 99% 06/27/2024 2:43 PM EDT Inhaled Oxygen Concentration - - Weight 59.4 kg (131 lb) 06/27/2024 2:43 PM EDT Height 154.9 cm (5' 1 ) 06/27/2024 2:43 PM EDT Body Mass Index 24.75 06/27/2024 2:43 PM EDT Plan of Treatment Upcoming Encounters Date Type Department Care Team (Late st Contact Info) Description 11/23/2024 3:30 PM EST Telemedicine [facility] [address] [place] [phone] Andrew Prasad, PharmD [address] [place] [phone] 12/23/2024 11:15 AM EDT Office Visit [facility] [address] [place] [phone] Luz Marina Arias MD [address] [place] [address] Health Maintenance Due Date Last Done Comments CT Colonography 1962 FIT DNA/Cologuard 1962 FIT 1962 FOBT 1962 Sigmoidoscopy 1962 Alcohol/Substance Use Screening 1974 Pneumococcal Vaccine: 50+ Years (1 of 1 - PCV) 2012 Zoster Vaccines (2 of 3) 08/12/2019 06/17/2019 Mammogram 05/21/2023 05/21/2021, 04/29, 04/08/2021, Additional history exists DTaP/Tdap/Td Vaccines (2 - Td or Tdap) 01/04/2024 01/03/2014, 09/03/2009 Depression Screening 02/19/2024 02/18/2023, 02/19/20 SDOH Screening 02/19/2024 02/18/2023 Colonoscopy 02/28/2024 02/27/2014 Colorectal Cancer Screening 02/28/2024 Dental X-Ray: Full Mouth 04/30/2024 04/29/2021, 02/26 Dental Oral Exam 05/20/2024 11/19/2023, 10/2021, 11/26/2021, Additional history exists COVID-19 Vaccine ( season) 2024 10/04/2021, 02/20/2021, 01/16/2021 Influenza Vaccine (#1) 2024 , 07/01/2022, 08/24/2021, Additional history exists Dental Prophylaxis 06/03/2024 12/01/2023, 1 09/29/2021, 11/26/2021, Additional history exists Dental X-Ray: Bitewings 11/20/2024 11/19/19, 07/30/2022, 04/29/2021, Additional history exists Tobacco Screening 06/27/2025 06/27/2024 Lipid Panel 12/07/2028 12/08/2023, 01/27, 01/15/2021 RSV Patients and Patients Aged 60 years or older (1 - 1-dose 75+ series) 2037 Hepatitis B Vaccines Completed 07/27/2012, 11/01/2009, 09/03/2009 Cervical Cancer Screening Discontinued HPV/Cotest Discontinued 08/08/2021 Pap Smear Discontinued 08/08/2021 HIV Screening Completed 02/02/2024, 01/15/2021 Hepatitis C Screening Completed 02/02/2024 HIB Vaccines Aged Out No longer eligi ble based on patient's age to complete this topic HPV Vaccines Aged Out No longer eligi ble based on patient's age to complete this topic Hepatitis A Vaccines Aged Out No long er eligible based on patient's age to complete this topic IPV Vaccines Aged Out No longer eligi ble based on patient's age to complete this topic Meningococcal Vaccine Aged Out No cameron chhaya eligible based on patient's age to complete this topic RSV under 20 months Aged Out No longe r eligible based on patient's age to complete this topic Rotavirus Vaccines Aged Out No longer eligible based on patient's age to complete this topic Goals Goal Patient Goal Type Associated Problems Recent Progress Patient-Stated? Author Blood Pressure < 150/90 Blood Pressure 144/83(2023 2:43 PM EDT) Andrew June, PharmD Note: Per JNC-8: Age >60 w/o history of CKD or DM Procedures Procedure Name Priority Date/Time Associated Diagnosis Comments BASIC METABOLIC PANEL Routine 11/03/2024 1:30 PM EST HEPATITIS PANEL, GENERAL Routine 02/02/2024 9:10 AM EDT Elevated liver enzymes HIV 1/2 ANTIGEN/ANTIBODY, FOURTH GENERATION W/RFL Routine 02/02/2024 9:10 AM EDT Elevated liver enzymes LIPID PANEL WITH REFLEX TO DIRECT LDL Routine 12/08/2023 3:00 PM EDT Essential hypertension PROPHYLAXIS - ADULT Routine 12/01/2023 2 :00 PM EST Dental calculus BITEWINGS - 4 RADIOGRAPHIC IMAGES Routine 11/19/2023 11:00 AM EST Encounter for dental examination Bone loss Gingival recession, localized PERIODIC ORAL EVALUATION - ESTABLISHED PATIENT Routine 11/19/2023 11:00 AM EST Encounter for dental examination Bone loss Gingival recession, localized HPV MRNA E6/E7 Routine 08/08/2021 11:03 AM EST THINPREP IMAGING SYSTEM PAP Routine 08/08/2021 11:03 AM EST MAMMOGRAM GENERIC Routine 05/21/2021 1:4 5 PM EDT DIAGNOSTIC - DIAGNOSTIC IMAGING - INTRAORAL - COMPREHENSIVE SERIES OF RADIOGRAPHIC IMAGES Routine 04/29/2021 12:00 AM EDT HM COLONOSCOPY Routine 02/27/2014 10:35 AM EDT from Last 3 Months or Most Recently Relevant to Health Maintenance Results * Basic Metabolic Panel (11/03/2024 1:30 PM EST) Sodium 137 135 - 145 mmol/L [facility] Potassium 3.6 3.3 - 5.1 mmol/L [facility] Chloride 99 96 - 108 mmol/L [facility] Carbon Dioxide 28 22 - 29 mmol/L [facility] Anion Gap 14 12 - 20 [facility] Urea Nitrogen (BUN) 14 9 - 16 mg/dL [facility] Creatinine, Serum 0.84 0.5 - 1.4 mg/dL [facility] Estimated Glomerular Filt Rate >60 [facility] Comment:Chronic Kidney Disea se: Estimated GFR < 60 mL/min/1.98k3Clsprx Kidney Disease: Estimated GFR < 15 mL/min/1.73m2 Glucose 101 60 - 115 mg/dL [facility] Calcium 10.1 8.4 - 10.2 mg/dL [facility] 11/03/2024 1:30 PM EST 11/03/2024 3:52 PM EST us Luz Marina Arias MD LAB BLOOD ORDERABLES Fin al Result [facility] [address] [place] [phone] * Hepatitis Panel, General (02/02/2024 9:10 AM EDT) Hepatitis A IgM Nonreactive Nonreactive [facility] Comment:IgM antibodies to DOCKERY V not detected; does not exclude earlyacute or recovered HAV infection. ~Hepatitis B Surface Antibody REACTIVE Nonreactive [facility] Comment:REACTIVE: > 11.99 mI U/mL Hepatitis B Core Antibody Nonreactive Nonreactive [facility] Hepatitis C Antibody Nonreactive Nonreactive [facility] Comment:Antibodies to HCV no t detected; does not exclude early acuteHCV infection. Hepatitis B Surface Ag Negative Negative [facility] Blood 02/02/2024 9:10 AM EDT 02/02/2024 11:41 AM EDT us Luz Marina Arias MD LAB BLOOD ORDERABLES Fin al Result Performing Organization Address [facility] Co de Phone Number [facility] [address] [place] [phone] * HIV-1/2 Antigen and Antibodies, Fourth Generation, with Reflexes (02/02/2024 9:10 AM EDT) HIV AB/AG Nonreactive Nonreactive [facility] Comment:HIV-1 p24 Ag and/or HIV-1/HIV-2 Ab not detected.A test result that is nonreactive does not exclude thepossibility of exposure to or infection with HIV-1 and/orHIV-2. Nonreactive results in this assay for individualswith prior exposure to HIV-1 and/or HIV-2 may be due toantigen and antibody levels that are below the limit ofdetection of this assay.The [employer] HIV Ag/Ab Combo assay result andsupplemental assay results should be interpreted inconjunction with the patient's clinical presentation,history and other laboratory results. If the results areinconsistent with clinical evidence, additional testing issuggested to confirm the result. Blood Venous blood specimen / Unknown 02/02/2024 9:10 AM EDT 02/02/2024 11:41 AM EDT us Luz Marina Arias MD LAB BLOOD ORDERABLES Fin al Result Performing Organization Address [facility] Co de Phone Number [facility] [address] [place] [address] [phone] * (ABNORMAL) Lipid Panel with Reflex to Direct LDL (12/08/2023 3:00 PM EDT) Triglycerides 85 <150 mg/dL [facility] Comment:Desirable Triglyceri de: less than 150 mg/dLBorderline High Triglyceride 150-199 mg/dLHigh Triglyceride: 200-499 mg/dLVery High Triglyceride: greater than or equal to 5OO mg/dL Cholesterol 204(H) <200 mg/dL [facility] Comment:Desirable Cholestero l: less than 200 mg/dLBorderline High Cholesterol: 200-239 mg/dLHigh Cholesterol: greater than 239 mg/dL LDL Cholesterol Calculated 120(H) <100 mg/dL [facility] Comment:Desirable LDL: less than 100 mg/dLNear Optimal/Above Optimal LDL: 110- 129 mg/dLBorderline High LDL: 130-159 mg/dLHigh LDL: 160-189 mg/dLVery High LDL: greater than or equal to 190 mg/dL HDL Cholesterol 67 >40 mg/dL [facility] Comment:Desirable HDL: great er than 40 mg/dL Note: This HDL assay may give artificially low results in patients with liver disease. Blood 12/08/2023 3:00 PM EDT 12/08/2023 4:06 PM EDT us Luz Marina Arias MD LAB BLOOD ORDERABLES Fin al Result [facility] [address] [place] [phone] * THINPREP TIS PAP (08/08/2021 11:03 AM EST) Clinical Information: None given [facility] COMMENT SEE COMMENT [facility] Comment: EXPLANATORY NOTE: ? The Pap is a screening test for cervical cancer. It is ?? not a diagnostic test and is subject to false negative ?? and false positive results. It is most reliable when a ?? satisfactory sample, regularly obtained, is submitted ?? with relevant clinical findings and history, and when ?? the Pap result is evaluated along with historic and ?? current clinical information. ?? COMMENT: This Pap test has been evaluated with computer assisted technology. [facility] T[employer] Classifier : SEE COMMENT [facility] Comment: DCR, CT(ASCP) CT screening location: [address] ??[phone] Interpretation/R esult: Negative for intraepithelial lesion or malignancy. [facility] LMP: NONE [facility] Prev. BX: NONE [facility] Prev. PAP: NONE [facility] SOURCE: [facility] Statement Of Adequacy: SATISFACTORY FOR EVALUATION [facility] 08/08/2021 11:0 3 AM EST Luz Marina Arias MD LAB PATHOLOGY ORDERABLES Final Result Performing Organization Address [facility] Co de Phone Number [facility] [address] * HPV mRNA E6/E7 (08/08/2021 11:03 AM EST) HPV nRNA E6/E7 Not Detected Not Detected [facility] Comment: Methodology: Naturalist-Mediated Amplification This assay detects E6/E7 viral messenger RNA (mRNA) from 14 high-risk HPV types (16,18,31,33,35,39,45,51,52,56,58,59,66,68). ? The analytical performance characteristics of this assay have been determined by [employer]. The modifications have not been cleared or approved by the FDA. This assay has been validated pursuant to the CLIA regulations and is used for clinical purposes. ?? For additional information, please refer to http://education.[employer]/faq/MZO034z9 (This link if provided for information/ educational purposes only.) 08/08/2021 11:0 3 AM EST Luz Marina Arias MD LAB BLOOD ORDERABLES Fin al Result Performing Organization Address [facility] de Phone Number [facility] [address] [place] [address], * Mammography Report 1 (05/21/2021 1:45 PM EDT) Anatomical Region Laterality Modality Breast Bilateral Mammography 05/21/2021 1:45 PM EDT Narrative 05/22/2021 11:53 AM EDT Refer to the Notes tab for result details [facility] Procedure: Mammography Report 1 Procedure Note ProviderTanya MD - 12/21/2022 Refer to the Notes tab for result details [facility] Procedure: Mammography Report 1 Luz Marina Arias MD IMG BI PROCEDURES Final Result * Colonoscopy (02/27/2014 10:35 AM EDT) Colonoscopy Normal Normal Narrative Roma Medley - 02/27/2014 10:35 AM EDT Recommended 10 year follow up ( [facility]) Historical Provider HEALTH MAINTENANCE Final Result from Last 3 Months or Most Recently Relevant to Health Maintenance Insurance [address] [place] [address] [facility] C3 HSN PARTIAL [address] [place] [address] DENTAL - HSN PARTIAL (MEDICAID) Care Teams Spring Fitter Helper Relationship Specialty Start Date End Date Luz Marina Arias MD [address] [place] [phone] PCP - General Family Medicine 06/29/18 Andrew Prasad, SunD [address] [place] [phone] Pharmacist Internal Medicine 07/10/23
[2024-11-08 13:49] LABS: Calcium 9.4 mg/dL (8.4-10.2); Free T4 (Free Thyroxine) 1.13 ng/dL (0.71-1.85); Potassium 3.4 mmol/L (3.3-5.1); Thyroid Stimulating Hormone 0.84 uIU/mL (0.32-4.0)
== END 2024-11-08 11:44 | disposition home or self-care (01) ==
LOC: HO.HHCL 11:43
PROVIDERS: Visit Provider Student in an Organized Health Care Education/Training Program
DX: E04.2 Nontoxic multinodular goiter (principal); M81.0 Age-related osteoporosis without current pathological fracture; I10 Essential (primary) hypertension
CPT/HCPCS: 36415; 82310; 84132; 84439; 84443

== ENCOUNTER 2024-11-11 15:41 | Outpatient (REF) | payer MEDICAID, SELFPAY ==
--- OUTSIDE RECORDS SUMMARY | 2024-11-11 15:42 | XMS_ITS | Encounter Summary ---
Author Organization [employer] Address [address] [facility] [address] [place] [address] Care Team Providers Care Bistro Attendant Name Role Phone Luz Marina Arias MD Primary Care Provider + Andrew Prasad PharmD Unavailable [phone] Reason for Visit * Reason Comments Med Refill Encounter Details Date Type Department Care Team ([facility] st Contact Info) Description 07/10/2024 Refill [facility] [address] [place], [place] [phone] Lucero Gonzalez MD [address] [place] [address] Onycholysis Social History Tobacco Use Types Packs/Day [...] Info) Description 11/23/2024 3:30 PM EST Telemedicine [address] [address] Andrew Prasad, Melisa [address] [place] [phone] 12/23/2024 11:15 AM EDT Office Visit [address] [address] Luz Marina Arias MD [address] [place] [phone] documented as of this encounter Goals Goal Patient Goal Type Associated Problems Recent Progress Patient-Stated? Author Blood Pressure < 150/90 Blood Pressure 144/83(2023 2:43 PM EDT) No Andrew Prasad PharmD Note: Per JNC-8: Age >60 w/o history of CKD or DM documented as of this encounter Visit Diagnoses Diagnosis Onycholysis Other specified disease of nail documented in this encounter Care Teams Bistro Attendant Relationship Specialty Start Date End Date Luz Marina Arias MD [address] [place] [phone] PCP - General Family Medicine 06/29/18 Andrew Prasad, Melisa [address] [place] [phone] Pharmacist Internal Medicine 07/10/23 documented as of this encounter
--- OUTSIDE RECORDS SUMMARY | 2024-11-11 15:42 | XMS_ITS | Encounter Summary ---
Author Organization [employer] Address 75 [facility] 7t [place] [address] Care Team Providers Care Deep Tissue Massage Therapist Name Role Phone Luz Marina Arias MD Primary Care Provider + Andrew Prasad PharmD Unavailable [phone] Encounter Details Date Type Department Care Team (Late Contact Info) Description 03/12/2023 Abstract [facility] MEDICINE [address] [place] [address] Luz Marina Arias MD [address] [place] [address] Social History Tobacco Use Types Packs/Day Years [...] Info) Description 11/23/2024 3:30 PM EST Telemedicine [facility] [address] [place] [address] Andrew Prasad, Melisa [address] [place] [address] 12/23/2024 11:15 AM EDT Office Visit [facility] [address] [place] [address] Luz Marina Arias MD [address] [place] [address] documented as of this encounter Procedures Procedure Name Priority Date/Time Associated Diagnosis Comments COLONOSCOPY Routine 02/27/2014 10:35 AM EDT documented in this encounter Results * Colonoscopy (02/27/2014 10:35 AM EDT) Colonoscopy Normal Normal Narrative Roma Medley - 02/27/2014 10:35 AM EDT Recommended 10 year follow up ( [facility]) Historical Provider HEALTH MAINTENANCE Final Result documented in this encounter Visit Diagnoses Not on filedocumented in this encounter Care Teams Deep Tissue Massage Therapist Relationship Specialty Start Date End Date Luz Marina Arias MD [address] [place] [address] [phone] PCP - General Family Medicine 06/29/18 Andrew Prasad, Melisa [address] [place] [address] [phone] Pharmacist Internal Medicine 07/10/23 documented as of this encounter
--- OUTSIDE RECORDS SUMMARY | 2024-11-11 15:43 | XMS_ITS | Encounter Summary ---
Author Organization [employer] Address 75 [facility] 7t [place] [address] Care Team Providers Care Delta System Freight Car Cleaner Name Role Phone Luz Marina Arias MD Primary Care Provider + Andrew Prasad PharmD Unavailable Encounter Details Date Type Department Care Team (Late st Contact Info) Description 11/03/2024 Orders Only [facility] MEDICINE 230 [place], [place] [phone] Luz Marina Arias MD 230 [place], [place] [phone] Social History Tobacco Use Types Packs/Day Years [...] Info) Description 11/23/2024 3:30 PM EST Telemedicine [facility] MEDICINE [address] [place] [address] Andrew Prasad, PharmD 230 [place] [address] 12/23/2024 11:15 AM EDT Office Visit [facility] MED[facility]INE [address] [place] [address] Luz Marina Arias MD 230 [place] [address] documented as of this encounter Goals Goal [...] EST) Sodium 137 135 - 145 mmol/L [facility] Potassium 3.6 3.3 - 5.1 mmol/L [facility] Chloride 99 96 - 108 mmol/L [facility] Carbon Dioxide 28 22 - 29 mmol/L [facility] Anion Gap 14 12 - 20 [facility] Urea Nitrogen (BUN) 14 9 - 16 mg/dL [facility] Creatinine, Serum 0.84 0.5 - 1.4 mg/dL [facility] Estimated Glomerular Filt Rate >60 [facility] Comment:Chronic Kidney Disea se: Estimated GFR < 60 mL/min/1.92z0Cuvdml Kidney Disease: Estimated GFR < 15 mL/min/1.73m2 Glucose 101 60 - 115 mg/dL [facility] Calcium 10.1 8.4 - 10.2 mg/dL [facility] 11/03/2024 1:30 PM EST 11/03/2024 3:52 PM EST us Luz Marina Arias MD LAB BLOOD ORDERABLES Fin al Result [facility] [address] [place] [address] [phone] documented in this encounter Visit Diagnoses Not on filedocumented in this encounter Care Teams Delta System Freight Car Cleaner Relationship Specialty Start Date End Date Luz Marina Arias MD 230 [place] [address] PCP - General Family Medicine 06/29/18 Andrew Prasad PharmD [address] [place] [address] Pharmacist Internal Medicine 07/10/23 documented as of this encounter
--- OUTSIDE RECORDS SUMMARY | 2024-11-11 15:43 | XMS_ITS | Encounter Summary ---
Author Organization [employer] Address 75 [facility] 7t [place] [address] Care Team Providers Care Jr. Systems Administrator Name Role Phone Luz Marina Arias MD Primary Care Provider + Andrew Prasad PharmD Unavailable [phone] Reason for Visit * Reason Comments Med Refill Encounter Details Date Type Department Care Team ([facility] st Contact Info) Description 11/01/2024 Refill [facility] MEDICINE 230 [place], [place] [phone] Luz Marina Arias MD 230 [place], [place] [phone] Social History Tobacco Use Types Packs/Day Years [...] 11/23/2024 3:30 PM EST Telemedicine [facility] MEDICINE [address] [place] [address] Andrew Prasad, PharmKathryn [address] [place] [address] 12/23/2024 11:15 AM EDT Office Visit [address] [address] Luz Marina Arias MD [address] [place] [address] documented as of this encounter Goals Goal Patient Goal Type Associated Problems Recent Progress Patient-Stated? Author Blood Pressure < 150/90 Blood Pressure 144/83(2023 2:43 PM EDT) No Andrew Prasad, Melisa Note: Per JNC-8: Age >60 w/o history of CKD or DM documented as of this encounter Visit Diagnoses Not on filedocumented in this encounter Care Teams Jr. Systems Administrator Relationship Specialty Start Date End Date Luz Marina Arias MD [address] [place] [address] 1957[address] PCP - General Family Medicine 06/29/18 Andrew Prasad, PharmD [address] [place] [address] 21216 Pharmacist Internal Medicine 07/10/23 documented as of this encounter
--- OUTSIDE RECORDS SUMMARY | 2024-11-11 15:43 | XMS_ITS | Encounter Summary ---
Author Organization [employer] [facility] Address [address] [place] [address] 7t [place] [address] Care Team Providers Care Pai Gow Manager Name Role Phone Luz Marina Arias MD Primary Care Provider + Andrew Prasad PharmD Unavailable [phone] Encounter Details Date Type Department Care Team (Latest Contact Info) Description 04/29/2021 Abstract [facility] CONVERSIONS Dental, Provider, DDS Social History Tobacco [...] 11/23/2024 3:30 PM EST Telemedicine [facility] MEDICINE [address] [place] [address] Andrew Prasad, PharmD [address] [place] [address] 12/23/2024 11:15 AM EDT Office Visit [facility] MEDICINE [address] [place] [address] Luz Marina Arias MD [address] [place], [place] documented as of this encounter Visit Diagnoses Not on filedocumented in this encounter Care Teams Pai Gow Manager Relationship Specialty Start Date End Date Luz Marina Arias MD [address] [place] [address] PCP - General Family Medicine 06/29/18 Andrew Prasad, SunD [address] [place] [address] Pharmacist Internal Medicine 07/10/23 documented as of this encounter
--- OUTSIDE RECORDS SUMMARY | 2024-11-11 15:43 | XMS_ITS | Encounter Summary ---
Author Organization [employer] Address 75 [facility] 7t [place] [address] Care Team Providers Care Junior Linux Systems Administrator Name Role Phone Luz Marina Arias MD Primary Care Provider + Andrew Prasad PharmD Unavailable [phone] Reason for Visit * Consultation (Routine) - Authorized Specialty Diagnoses / Procedures Referred By Contac t Referred To Contact Pharmacy Diagnoses Essential hypertension Luz Marina Arias MD [address] [place] [address] Phone: tel: fax: Referral ID Status Reason Start Date Expiration Date Visits Requested Visits Authorized [id number] Authorized Consult and Treat 10/06/2024 10/06/2025 6 6 Encounter Details Date Type Department Care Team (Late st Contact Info) Description 10/26/2024 2:30 PM EST Telemedicine [facility]INE 230 [place], [place] [phone] Andrew Prasad, PharmD [address] [place], [place] [phone] Essential hypertension (Primary Dx) Social History Tobacco [...] the past 12 months, has t he Specialized Tech, gas, oil or water [employer] threatened to shut off services in your [...] of this encounter Progress Notes * Andrew rPasad, PharmD - 10/26/2024 2:30 PM EST Pharmacy Consult Visit Type: CDTM - Hypertension Pharmacist: Andrew Prasad, PharmD Angelic Alonso is a 64 y.o. year old patient here for follow-up visit completed in person. Subjective History: General / Intake (updated 06/17/24) Allergies: is allergic to lisinopril. Read/Write: Yes, in [place] Recent Hospitalizations: No Social History as reported [...] to current therapy . Patient presented to [facility] endocrinology 06/22/2024 (Dr. Miller): BP = 170/90 [...] appointment for the administration of Shingrix at [facility] pharmacy 11/01/2024. Preferred Pharmacy: [facility]/pharmacy #[id number] [place] [address] Assessment/Plan: Hypertension Pharmacotherapy: Losartan 100 mg po [...] 8-12 weeks if needed, as recommended by weather strip installer. Education: Reviewed benefits of DASH diet and [...] Description 11/23/2024 3:30 PM EST Telemedicine [address] [phone] Andrew Prasad PharmD [address] [place] [address] 12/23/2024 11:15 AM EDT Office Visit [address] [address] Luz Marina Arias MD [address] [place] [address] Scheduled Orders Name Type Priority Associated Diagnoses Orde r Schedule Basic Metabolic Panel Lab Routine Essential hypertension Expected: 10/26/2024 (Approximate), Expires: 10/26/2025 documented as of this encounter Goals Goal Patient Goal Type Associated Problems Recent Progress Patient-Stated? Author Blood Pressure < 150/90 Blood Pressure 144/83(2023 2:43 PM EDT) No Anderw Prasad PharmD Note: Per JNC-8: Age >60 w/o history of CKD or DM documented as of this encounter Visit Diagnoses Diagnosis Essential hypertension- Primary Unspecified essential hypertension documented in this encounter Care Teams Junior Linux Systems Administrator Relationship Specialty Start Date End Date Luz Marina Arias MD [address] [place] [address] PCP - General Family Medicine 06/29/18 Andrew Prasad PharmD [address] [place] [address] Pharmacist Internal Medicine 07/10/23 documented as of this encounter
--- OUTSIDE RECORDS SUMMARY | 2024-11-11 15:43 | XMS_ITS | Clinical Summary ---
Author Organization [employer] Address 75 [facility] 7t [place] [address] Care Team Providers Care Director Teen Post Name Role Phone Luz Marina Arias MD Primary Care Provider + Andrew Prasad PharmD Unavailable [phone] Allergies Active Allergy Reactions Criticality Noted Date [...] EDT): - seen by endocrinology (Dr. Islas buttermilk drier operator) - will reach out to them for endocrinology referral to [facility] Hypokalemia 10/08/2023 Assessment & Plan (10/08/2023 1:17 [...] 12.5mg BID Order BMP and FU at [facility] clinic in 2-3 wks and I will [...] Thyroid scan pending and follow up with buttermilk drier operator Patient will have influenza immunization and denied COVID immunization Assessment & Plan (02/18/2023 12:43 PM EDT): TFT test seems to be preserved. Repeat TSH order Thyroid us to define thyroid nodules refer to buttermilk drier operator. Encounters Date Type Department Care Team Description 11/03/2024 Orders Only [facility] [address] Luz Marina Arias MD 11/01/2024 Refill [facility] 230 [place] [address] Luz Marina Arias MD 10/26/2024 2:30 PM EST Telemedicine [facility] [address] [facility] [place] [address] Andrew Prasad, SunD Essential hypertension (Primary Dx) 09/30/2024 Telephone [facility] [address] [facility] [address] Luz Marina Arias MD November recall 09/30/2024 Telephone [facility] 230 [place] [address] Luz Marina Arias MD 09/24/2024 Refill [facility] 230 [place] [address] Luz Marina Arias MD from Last 3 [...] Info) Description 11/23/2024 3:30 PM EST Telemedicine [facility] MEDICINE [address] [place] [address] Andrew Prasad, PharmD [address] [place] [address] 12/23/2024 11:15 AM EDT Office Visit [facility] MEDICINE [address] [place] [address] Luz Marina Arias MD 230 [place] [address] Health Maintenance Due Date Last Done Comments [...] GENERIC Routine 05/21/2021 1:4 5 PM EDT INTRAORAL - COMPLETE SERIES OF RADIOGRAPHIC IMAGES Routine 04/29/2021 12:00 AM EDT HM COLONOSCOPY Routine 02/27/2014 10:35 AM EDT from Last 3 Months or Most Recently Relevant to Health Maintenance Results * Basic Metabolic Panel (11/03/2024 1:30 PM EST) Sodium 137 135 - 145 mmol/L [facility] Potassium 3.6 3.3 - 5.1 mmol/L [facility] Chloride 99 96 - 108 mmol/L [facility] Carbon Dioxide 28 22 - 29 mmol/L [facility] Anion Gap 14 12 - 20 [facility] Urea Nitrogen (BUN) 14 9 - 16 mg/dL [facility] Creatinine, Serum 0.84 0.5 - 1.4 mg/dL [facility] Estimated Glomerular Filt Rate >60 [facility] Comment:Chronic Kidney Disea se: Estimated GFR < 60 mL/min/1.16m6Bmqlff Kidney Disease: Estimated GFR < 15 mL/min/1.73m2 Glucose 101 60 - 115 mg/dL [facility] Calcium 10.1 8.4 - 10.2 mg/dL [facility] 11/03/2024 1:30 PM EST 11/03/2024 3:52 PM EST us Luz Marina Arias MD LAB BLOOD ORDERABLES Fin al Result [facility] [address] [place] [phone] * Hepatitis Panel, General (02/02/2024 9:10 AM EDT) Hepatitis A IgM Nonreactive Nonreactive [facility] Comment:IgM antibodies to DOCKERY V not detected; does not exclude earlyacute or recovered HAV infection. ~Hepatitis B Surface Antibody REACTIVE Nonreactive [facility] Comment:REACTIVE: > 11.99 mI U/mL Hepatitis B Core Antibody Nonreactive Nonreactive [facility] Hepatitis C Antibody Nonreactive Nonreactive [facility] Comment:Antibodies to HCV no t detected; does not exclude early acuteHCV infection. Hepatitis B Surface Ag Negative Negative [facility] Blood 02/02/2024 9:10 AM EDT 02/02/2024 11:41 AM EDT us Luz Marina Arias MD LAB BLOOD ORDERABLES Fin al Result Performing Organization Address [facility]/ZIP Co de Phone Number [facility] [address] [place] [phone] * HIV-1/2 Antigen and Antibodies, Fourth Generation, with Reflexes (02/02/2024 9:10 AM EDT) HIV AB/AG Nonreactive Nonreactive [facility] Comment:HIV-1 p24 Ag and/or HIV-1/HIV-2 Ab not detected.A test result that is nonreactive does not exclude thepossibility of exposure to or infection with HIV-1 and/orHIV-2. Nonreactive results in this assay for individualswith prior exposure to HIV-1 and/or HIV-2 may be due toantigen and antibody levels that are below the limit ofdetection of this assay.The [employer] HIV Ag/Ab Combo assay result andsupplemental assay results should be interpreted inconjunction with the patient's clinical presentation,history and other laboratory results. If the results areinconsistent with clinical evidence, additional testing issuggested to confirm the result. Blood Venous blood specimen / Unknown 02/02/2024 9:10 AM EDT 02/02/2024 11:41 AM EDT Luz Marina Arias MD LAB BLOOD ORDERABLES Fin al Result Performing Organization Address [facility] Co de Phone Number [facility] [address] [place] [phone] [phone] * (ABNORMAL) Lipid Panel with Reflex to Direct LDL (12/08/2023 3:00 PM EDT) Triglycerides 85 <150 mg/dL [facility] Comment:Desirable Triglyceri de: less than 150 mg/dLBorderline High Triglyceride 150-199 mg/dLHigh Triglyceride: 200-499 mg/dLVery High Triglyceride: greater than or equal to 5OO mg/dL Cholesterol 204(H) <200 mg/dL [facility] Comment:Desirable Cholestero l: less than 200 mg/dLBorderline High Cholesterol: 200-239 mg/dLHigh Cholesterol: greater than 239 mg/dL LDL Cholesterol Calculated 120(H) <100 mg/dL [facility] Comment:Desirable LDL: less than 100 mg/dLNear Optimal/Above Optimal LDL: 110- 129 mg/dLBorderline High LDL: 130-159 mg/dLHigh LDL: 160-189 mg/dLVery High LDL: greater than or equal to 190 mg/dL HDL Cholesterol 67 >40 mg/dL [facility] Comment:Desirable HDL: great er than 40 mg/dL Note: This HDL assay may give artificially low results in patients with liver disease. Blood 12/08/2023 3:00 PM EDT 12/08/2023 4:06 PM EDT Luz Marina Arias MD LAB BLOOD ORDERABLES Fin al Result [facility] [address] [place] [phone] * THINPREP TIS PAP (08/08/2021 11:03 AM EST) Clinical Information: None given [facility] COMMENT SEE COMMENT FOUNDATI ON [...] has been evaluated with computer assisted technology. [facility] Gas Flow Regulator : SEE COMMENT [facility] Comment: DCR, CT(ASCP) CT screening location: [address] ??[phone] Interpretation/R esult: Negative for intraepithelial lesion or malignancy. [facility] LMP: NONE GIVEN FOUNDATIO N [facility] Prev. BX: NONE GIVEN [facility] Prev. PAP: NONE GIVEN FOUNDATI ON LAB SYSTEM SOURCE: [employer] [facility] Statement Of Adequacy: SATISFACTORY FOR EVALUATION [facility] 08/08/2021 11:0 3 AM EST Luz Marina Arias MD LAB PATHOLOGY ORDERABLES Final Result Performing Organization Address [facility] Co de Phone Number [facility] [address] * HPV mRNA E6/E7 (08/08/2021 11:03 AM EST) HPV nRNA E6/E7 Not Detected Not Detected [facility] Comment: Methodology: [employer] Architect-Mediated Amplification This assay detects E6/E7 viral messenger RNA (mRNA) from 14 high-risk HPV types (16,18,31,33,35,39,45,51,52,56,58,59,66,68). ? The analytical performance characteristics of this assay have been determined by [employer]. The modifications have not been cleared or approved by the FDA. This assay has been validated pursuant to the CLIA regulations and is used for clinical purposes. ?? For additional information, please refer to http://education.Rasm[employer] Reports/faq/UJL671w6 (This link if provided for information/ educational purposes only.) 08/08/2021 11:0 3 AM EST Luz Marina Arias MD LAB BLOOD ORDERABLES Fin al Result Performing Organization Address [facility] de Phone Number [facility] [address] * Mammography Report 1 (05/21/2021 1:45 PM [...] MD IMG BI PROCEDURES Final Result * Hm Colonoscopy (02/27/2014 10:35 AM EDT) Colonoscopy Normal Normal Narrative Roma Medley - 02/27/2014 10:35 AM EDT Recommended 10 year follow up ( [facility]) us Historical Provider HEALTH MAINTENANCE Final Result from Last 3 Months or Most Recently Relevant to Health Maintenance Insurance [address] [place] [address] [facility] C3 HSN PARTIAL DENTAL - HSN PARTIAL (MEDICAID) Care Teams Director Teen Post Relationship Specialty Start Date End Date Luz Marina Arias MD [address] [place], [place] PCP - General Family Medicine 06/29/18 Andrew Prasad, Melisa [address] [place] [address] Pharmacist Internal Medicine 07/10/23
--- OUTSIDE RECORDS SUMMARY | 2024-11-11 15:43 | XMS_ITS | Encounter Summary ---
Author Organization [employer] [facility] Address [address] [place] [address] 7t [place] [address] Care Team Providers Care Fashion Patternmaker Name Role Phone Luz Marina Arias MD Primary Care Provider + Andrew Prasad PharmD Unavailable [phone] Encounter Details Date Type Department Care Team (Latest Contact Info) Description 07/30/2022 Abstract [facility] CONVERSIONS Dental, Provider, DDS Social History [...] 11/23/2024 3:30 PM EST Telemedicine [facility] MEDICINE [address] [place] [address] Andrew Prasad, PharmD [address] [place], [place] 12/23/2024 11:15 AM EDT Office Visit [facility] MEDICINE [address] [place] [address] Luz Marina Arias MD [address] [place], [place] documented as of this encounter Visit Diagnoses Not on filedocumented in this encounter Care Teams Fashion Patternmaker Relationship Specialty Start Date End Date Luz Marina Arias MD [address] [place] [address] PCP - General Family Medicine 06/29/18 Andrew Prasad, SunD [address] [place] [address] Pharmacist Internal Medicine 07/10/23 documented as of this encounter
--- OUTSIDE RECORDS SUMMARY | 2024-11-11 15:43 | XMS_ITS | Encounter Summary ---
Author Organization [employer] Address 75 [facility] 7t [place] [address] Care Team Providers Care Endoscopic Technician Name Role Phone Luz Marina Arias MD Primary Care Provider + Andrew Prasad PharmD Unavailable [phone] Reason for Visit * Reason Onset Date Comments triage 01/29/2023 Encounter Details Date Type Department Care Team ([facility] st Contact Info) Description 01/29/2023 Telephone [facility] [address] [place], [place] [phone] Luz Marina Arias MD 230 [place], [place] [phone] triage Social History Tobacco Use Types Packs/Day [...] 01/29/2023 2:41 PM EDT Triage call with [facility] [id number] Pt reports woke up this morning with [...] medications. Pt is advised to come to [facility] today or tomorrow morning and Pt agrees. [...] Info) Description 11/23/2024 3:30 PM EST Telemedicine [facility] [address] [place] [phone] Andrew Prasad, PharmD [address] [place] [phone] 12/23/2024 11:15 AM EDT Office Visit [facility] [address] [place] [phone] Luz Marina Arias MD [address] [place] [phone] documented as of this encounter Visit Diagnoses Not on filedocumented in this encounter Care Teams Endoscopic Technician Relationship Specialty Start Date End Date Luz Marina Arias MD [address] [place] [phone] PCP - General Family Medicine 06/29/18 Andrew Prasad, SunD [address] [place] [phone] Pharmacist Internal Medicine 07/10/23 documented as of this encounter
== END 2024-11-11 15:42 | disposition home or self-care (01) ==
LOC: HO.US 15:41
PROVIDERS: PCP Internal Medicine; Visit Provider Student in an Organized Health Care Education/Training Program
DX: E04.2 Nontoxic multinodular goiter (principal); I10 Essential (primary) hypertension
CPT/HCPCS: 76536

== ENCOUNTER → 2024-11-11 15:42 | Outpatient (BNV) | payer MEDICAID, SELFPAY | PROVIDERS: PCP Internal Medicine; Visit Provider Radiology Diagnostic Radiology | DX: I10 Essential (primary) hypertension (principal) | CPT/HCPCS: 76536 ==

== ENCOUNTER 2024-11-28 13:27 | Outpatient (AMB) | payer MEDICAID, SELFPAY ==
--- NOTE | 2024-11-28 13:30 | A.OFFVIS_ITS ---
Vital Signs 3 11/28/24 13:31 Height 5 ft 5 in Weight 135 lb 2.294 oz BMI 22.5 BP 124/86 Blood Pressure Location Lt brachial Position Sitting Pulse 67 Pulse Source Pulse Oximeter Pulse Oximetry (%) 98 Oxygen Delivery Method Room Air Intake Visit Reasons: f/u Multinodular goiter Intake Note: Patient present today for thyroid biopsy follow up visit. Quality And Reliability Engineer Required: Yes Quality And Reliability Engineer Language: Char Filter Tank Tender Head Services: Quality And Reliability Engineer Present Information Interpreted: non-clinical & clinical Accompanied by: Self / Same As Patient Allergies No Known Allergies [No Known Allergies*] Allergy (Verified 11/28/24 13:35) Medication List - Last Reconciled 11/28/24 by Cynthia Miller MD cholecalciferol (vitamin D3) 25 mcg PO DAILY ciprofloxacin HCl 0.3% Instill 4 drops to left ear twice daily for 7 days ciprofloxacin-dexamethasone 0.3-0.1 % (Ciprodex) 4 drps otic (ear) left BID 7 days duloxetine (Cymbalta) 30 mg PO DAILY erythromycin 0.5 inches ophthalmic (eye) TID 1 week ibuprofen 600 mg PO Q6H PRN losartan 100 mg PO DAILY metoprolol succinate ER 25 mg PO ONCE omega-3 fatty acids (Fish Oil Concentrate) 1,000 mg PO DAILY spironolactone 12.5 mg (1/2 x 25 mg) PO DAILY HPI Comments Details: 63 YO F with who is seen for follow-up of multinodular goiter. Also has history significant for osteoporosis. Multinodular goiter Was initially diagnosed with multinodular thyroid in in January 2023 with thyroid US revealing MNG . Was noted to have a high suspicious TR 5 nodule in the right superior lobe measuring 1.1 cm with punctate echogenic foci. Other subcentimeter nodules noted bilaterally. Subsequently she was noted to have low TSH of 0.11 with normal free T4 and T3 levels in January of 2023, but subsequently normalized in June of 2023. In 07/2023 Thyroid uptake and scan was done for concerns of toxic multinodular goiter, which showed normal overall thyroid uptake, however showed some increased prominence in the area of her nodules. However it was indeterminate in terms of whether there was increased functionality of the 1.1 cm suspicious looking thyroid nodule. Hence She was advised to get FNA of the 1.1 cm right upper lobe nodule, however patient wanted to get a 2nd opinion at that time and had planned to go to [facility]. She was not able to get to [place] and has come back for follow-up today. She underwent FNA of the right superior 1.1 cm nodule on 06/08/24. Cytology was nondiagnostic, [place] category 1. Interval history Ultrasound thyroid from October 2024 shows stable size of the nodules. The right superior 1 cm nodule now measures 0.9 cm. Technically this is TR 5 category but given it is not even 1 cm in size, I will continue to follow this for now. Normal thyroid function from October 2024. Currently denies any dysphagia or hoarseness of voice. Denies sensation of swelling in the neck or difficulty breathing while lying flat. Denies palpitations, no tremors, no weight loss, no frequent bowel movements. Denies any ocular complaints, blurred or double vision. No hair loss,dry skin, , - weight gain, Does have heat intolerance. Denies any history of head or neck irradiation. Denies any family history of thyroid cancer. Osteoporosis of the hip on DEXA scan from 05/17/2021 osteoporosis in the left femoral neck with T-score of -2.5 and osteopenia of the lumbar spine with T-score of -2.3. Patient states she was on alendronate for about a year in 2020. Denies being on any other therapy for osteoporosis. She is not sure why alendronate was discontinued but she has not been on it recently. Currently is on vitamin D 1000 units daily. Intermittently takes calcium supplements. Has 2-3 servings of cheese in a week. Has 2-3 servings of yogurt in a week. Does not drink milk. Will history of fractures. No history of osteoporosis in the family. Vitamin-D level was 39 from 11/2023. Noted to have normal calcium, creatinine, albumin levels in the chart SPEP immunofixation normal Interval history Denies fractures Taking vitamin D 1000 units daily Dental cleaning regulalry , last seen 2023, no issues Bone density scan from October 2024 showed osteopenia at the lumbar spine with T-score of-2.1, 2.8% increase from previous bone density in 2020, T-score of - 2.5 at the left femoral neck consistent with borderline osteoporosis, left femur total T-score-1.7, with a 1.7 increased from previous. Hypertension : resolved from our end Has hypertension since her 50s. Has history of hypokalemia in the chart with potassium level of 3.1. Currently she is on losartan 100 mg daily, metoprolol. 25 once at night Not pressure is not well controlled, she does not check often at home, however blood pressure has been elevated in the 150 systolic. Has history of early cardiac in the family, her mother at the age of 43. Labs 05/21 showed suppressed renin of 0.06, aldosterone not elevated at 3. Last visit we started on spironolactomr 12.5 mg daily, patient toleratng well, BP under control, PCP to follow Physical exam General: sitting comfortably in bed in no acute distress HEENT: normocephalic/atraumatic, EOM intact, moist oral mucosa Neck: supple, symmetrical, no thyromegaly , no dorsocervical or supraclavicular fat pads Cardiac: normal heart sounds Pulm: normal breath sounds B/L, no added breath sounds Abd: not distended, no tenderness Extremities: no edema, no signs of myxedema Neuro: AAO x3, Speech: normal, no facial droop, moving all 4 extremities Skin: no rash Laboratory Tests 12/08/23 05/16/24 15:00 16:14 Sodium 140 Potassium 3.8 Creatinine 1.40 Estimated GFR 38 Calcium 10.1 Phosphorus 3.9 Alk Phos Bone Specific 20.5 Renin 0.06 L Aldosterone 3 25-OH Vitamin D Total 39.7 TSH 0.66 Free T4 0.90 Laboratory Tests 01/27/23 07/07/23 16:50 15:14 TSH 0.11 L 0.96 Free T4 1.70 1.04 Total T3 170 Free T3 3.3 Laboratory Tests 10/08/23 11/03/23 12/08/23 14:04 12:01 15:00 Potassium 3.1 L 3.6 Calcium Albumin 25-OH Vitamin D Total 39.7 12/24/23 20:38 Potassium 3.3 Calcium 9.7 Albumin 4.9 25-OH Vitamin D Total US Oct 2023 images reviewed by me EXAMINATION: US THYROID CLINICAL INFORMATION: Nontoxic multinodular goiter. COMPARISON: Thyroid ultrasound 02/19/2023. CT soft tissue neck 01/27/2023. TECHNIQUE: Linear transducer grayscale and color Doppler examination with attention to the region of the thyroid. FINDINGS: SIZE: Measurements of the thyroid lobes and nodules are given in sagittal, anteroposterior and transverse dimensions respectively. Right Thyroid Lobe: 4.7 x 1.2 x 1.6 cm, volume 4.4 mL. Previously 4.7 x 1.2 x 1.6 cm, volume 4.7 mL. Parenchyma: The gland echotexture is homogeneous. Thyroid vascularity is normal. Left Thyroid Lobe: 4.0 x 1.4 x 1.4 cm, volume 4.0 mL. Previously 3.9 x 1.3 x 1.4 cm, volume 3.7 mL. Parenchyma: The gland echotexture is homogeneous. Thyroid vascularity is normal. Isthmus: 0.2 cm in maximum AP dimension. Previously 0.2 cm. Estimated total number of nodules greater than or equal to 1 cm: 1. Newspaper Editor Managing nodules are described as follows: 1. Location: Right upper pole. Size: 0.6 x 0.4 x 0.6 cm, volume 0.06 mL. Previously: 0.6 x 0.3 x 0.6 cm, volume 0.06 mL. Nodule characteristics: Composition: Solid/almost completely solid (2). Echogenicity: Hypoechoic (2). Shape: Not taller than wide (0). Margins: Ill-defined (0). Echogenic Foci: None (0). ACR TI-RADS total points: 4. Previous: 4. ACR TI-RADS category: 4. Previous: 4. Significant change in size (>/= 20% in 2 dimensions and minimal increase of 2 mm or 50% or greater increase in volume): No Change in features: No Change in ACR TI-RADS risk category: No 2. Location: Right upper pole. Size: 1.1 x 0.6 x 0.8 cm, volume 0.3 mL. Previously: 1.1 x 0.7 x 0.7 cm, volume 0.27 mL. Nodule characteristics: Composition: Solid/almost completely solid (2). Echogenicity: Hypoechoic (2). Shape: Not taller than wide (0). Margins: Smooth (0). Echogenic Foci: Punctate echogenic foci (3). ACR TI-RADS total points: 7. Previous: 7. ACR TI-RADS category: 5. Previous: 5. Significant change in size (>/= 20% in 2 dimensions and minimal increase of 2 mm or 50% or greater increase in volume): No Change in features: No Change in ACR TI-RADS risk category: No 3. Location: Right lower pole. Size: 0.4 x 0.2 x 0.4 cm, volume 0.02 mL. Previously: 0.5 x 0.3 x 0.5 cm, volume 0.03 mL. Nodule characteristics: Composition: Solid/almost completely solid (2). Echogenicity: Hypoechoic (2). Shape: Not taller than wide (0). Margins: Ill-defined (0). Echogenic Foci: None (0). ACR TI-RADS total points: 4. Previous: 6. ACR TI-RADS category: 4. Previous: 4. Significant change in size (>/= 20% in 2 dimensions and minimal increase of 2 mm or 50% or greater increase in volume): No Change in features: No Change in ACR TI-RADS risk category: No 4. Location: Left mid pole. Size: 0.3 x 0.2 x 0.2 cm, volume 0.006 mL. Previously: 0.4 x 0.3 x 0.3 cm, volume 0.02 mL. Nodule characteristics: Composition: Cystic(0). ACR TI-RADS total points: 0. Previous: 0. ACR TI-RADS category: 1. Previous: 1. Significant change in size (>/= 20% in 2 dimensions and minimal increase of 2 mm or 50% or greater increase in volume): No Change in features: No Change in ACR TI-RADS risk category: No NODES: No lymphadenopathy is seen in the tissue surrounding the thyroid gland. US/US thyroid IMPRESSION: 1.1 cm right upper TR5 thyroid nodule again meets criteria for biopsy. Fine-needle aspiration recommended if not already performed. Thyroid uptake and scan Jul 2023 EXAMINATION: THYROID UPTAKE AND SCAN CLINICAL INFORMATION: Nontoxic multinodular goiter. COMPARISON: CT of the soft tissue neck done on 01/27/2023 and ultrasound of the thyroid gland done on 02/19/2023. TECHNIQUE: Following the oral administration of 293 microcuries of I-123 sodium iodide, thyroid uptake was performed and expressed as a percentage of the administrated dose. Gamma scintillation camera images of the thyroid in the anterior and right and left anterior oblique views were obtained using a pinhole collimator following the administration of 10.0 mCi Tc-99m pertechnetate. FINDINGS: The uptake is 6.11% at 4 hours and 14.62% at 24 hours (Normal radioiodine uptake at 4 to 6 hours is about 5-15% and at 24 hours is 10% to 30%). The radioiodine uptake is normal. The radiopertechnetate thyroid scintigram demonstrates the thyroid gland to be normal in size, shape, and position. Appears asymmetrically prominent, shows a photopenic defect at mid to inferior pole The left lobe of the thyroid gland appear unremarkable. Previous sonographic detected 2 subcentimeter nodules seen at the mid part of the left lobe are not reproduced in the current study likely secondary to their small size. The right lobe of the thyroid gland shows a photopenic defect at mid to inferior pole consistent with a cold nodule likely corresponds to a 0.5 cm nodule seen on prior sonographic images. Note is made of a relatively hyperactive/hot nodule at mid pole which may or may not correspond to the dominant right superior 1.1 cm nodule seen on prior sonographic images. The trapping function appears normal. NM/NM thyroid w uptake IMPRESSION: 1. Normal radioiodine uptake. 2. The left lobe of the thyroid gland scintigraphically appear unremarkable without evidence of any superimposed discrete hot or cold nodules. 3. The right lobe of the thyroid gland is asymmetrically prominent, shows presence of both cold and hot nodules at mid to inferior part of the gland. DEXA scan April of 2021 BONE DENSITOMETRY CLINICAL INDICATION: Menopause. COMPARISON: Previous BD dated 05/17/2015 and baseline BD dated 02/08/2010. TECHNIQUE: Using a [employer] DXA System (software version: 13.1) manufactured by [employer], dual-energy x-ray absorptiometry was performed of the lumbar spine and left hip. The images are of good technical quality. Summary results are attached. FINDINGS: AP SPINE L1-L4: Current: BMD 0.899 g/cm2, Z-score -0.9, T-score -2.3, osteopenia, 0.2% decrease from previous, 16.4% decrease from baseline (<5% change is not significant). Prior: BMD 0.901 g/cm2. Baseline: BMD 1.076 g/cm2. LEFT FEMUR, NECK: Current: BMD 0.689 g/cm2, Z-score -1.1, T-score -2.5, osteoporosis. Prior: BMD 0.713 g/cm2. Baseline: BMD 0.773 g/cm2. LEFT FEMUR, TOTAL: Current: BMD 0.775 g/cm2, Z-score -0.8, T-score -1.8, osteopenia, 2.3% decrease from previous, 9.4% decrease from baseline (<5% change is not significant). Prior: BMD 0.793 g/cm2. Baseline: BMD 0.855 g/cm2. IDENTIFIED RISK FACTORS: Menopause, hysterectomy. HISTORY OF FRACTURE: None listed. MEDICATIONS: Calcium supplements or multivitamin, vitamin D. BONE DENSITOMETRY 07/15/24 CLINICAL INDICATION: Other osteoporosis without current pathological fracture. COMPARISON: Previous BD dated 05/21/2021 and baseline BD dated 02/08/2010. TECHNIQUE: Using a [employer] DXA System (software version: 13.1) manufactured by [employer], dual-energy x-ray absorptiometry was performed of the lumbar spine and left hip. The images are of good technical quality. Summary results are attached. FINDINGS: AP SPINE L1-L4: Current: BMD 0.924 g/cm2, Z-score -0.5, T-score -2.1, osteopenia, 2.8% increase from previous, 14.1% decrease from baseline (<5% change is not significant). Prior: BMD 0.899 g/cm2. Baseline: BMD 1.076 g/cm2. LEFT FEMUR, NECK: Current: BMD 0.692 g/cm2, Z-score -1.0, T-score -2.5, osteoporosis. Prior: BMD 0.689 g/cm2. Baseline: BMD 0.773 g/cm2. LEFT FEMUR, TOTAL: Current: BMD 0.788 g/cm2, Z-score -0.5, T-score -1.7, osteopenia, 1.7% increase from previous, 7.8% decrease from baseline (<5% change is not significant). Prior: BMD 0.775 g/cm2. Baseline: BMD 0.855 g/cm2. IDENTIFIED RISK FACTORS: Menopause. Hysterectomy. HISTORY OF FRACTURE: None listed. MEDICATIONS: Vitamin D. MM/XR DEXA axial skeleton IMPRESSION: 1. DIAGNOSIS: Osteoporosis based on the lowest T-score value of -2.5 in the femoral neck applying World Health Organization criteria. 2. 10-YEAR FRACTURE RISK PREDICTION, FRAX: According to the guidelines, FRAX calculation should only be performed on patients in the osteopenia bone density category. Therefore, FRAX was not performed on this patient. US THYROID 11/11/24 CLINICAL INFORMATION: Essential (primary) hypertension. COMPARISON: November 19, 2023. TECHNIQUE: Linear transducer grayscale and color Doppler examination with attention to the region of the thyroid. FINDINGS: SIZE: Measurements of the thyroid lobes and nodules are given in sagittal, anteroposterior and transverse dimensions respectively. Right Thyroid Lobe: 4.7 x 1.1 x 1.4 cm, volume 4.0 mL. Previous: 4.4 x 1.2 x 1.6 cm, volume: 4.7 cc. Parenchyma: The gland echotexture is heterogeneous. Thyroid vascularity is normal. Left Thyroid Lobe: 3.3 x 0.9 x 1.3 cm, volume 2.0 mL. Previous: 4.0 x 1.4 x 1.4 cm, volume 4.0 cc. Parenchyma: The gland echotexture is heterogeneous. Thyroid vascularity is normal. Isthmus: 0.2 cm in maximum AP dimension. Previous 0.2 Estimated total number of nodules greater than or equal to 1 cm: None. Newspaper Editor Managing nodules are described as follows: 1. Location: Upper segment right lobe.. Size: 0.5 x 0.3 x 0.5 cm, volume 0.04 mL. Previous: 0.6 x 0.4 x 0.6 cm, volume 0.06 cc. Nodule characteristics: Composition: Solid (2). Echogenicity: Isoechoic (1). Shape: Not taller than wide (0). Margins: Smooth (0). Echogenic Foci: None (0). ACR TI-RADS total points: 3 ACR TI-RADS category: 3 2. Location: [Upper segment, right lobe.. Size: 0.9 x 0.5 x 0.7 cm, volume 0.2 mL. Previous: 1.1 x 0.6 x 0.6 cm, volume 0.3 cc. Nodule characteristics: Composition: Solid (2). Echogenicity: Hypoechoic (2). Shape: Not taller than wide (0). Margins: Smooth (0). Echogenic Foci: None (0). ACR TI-RADS total points: 7 ACR TI-RADS category: 5 3. Location: Lower aspect right lobe.. Size: 0.3 x 0.2 x 0.3 cm, volume 0.011 mL. Previous: 0.4 x 0.2 x 0.4 cm, volume 0.02 cc. Nodule characteristics: Composition: Solid (2). Echogenicity: Hypoechoic (2). Shape: Not taller than wide (0). Margins: Smooth (0). Echogenic Foci: None (0). ACR TI-RADS total points: 4 ACR TI-RADS category: 4 NODES: No lymphadenopathy is seen in the tissue surrounding the thyroid gland. US/US thyroid IMPRESSION: ACR TI-RADS 3 in the upper right thyroid lobe. ACR TI-RADS 5, upper right thyroid lobe. ACR TI-RADS 4, lower right thyroid lobe. Overall no gross change.. [facility] Medical History Osteoporosis Multinodular goiter (nontoxic) Cervical spondylosis Fibromyalgia Ganglion cyst Osteoarthritis Vitamin D deficiency Osteopenia HTN (hypertension) Surgical History S/P foot surgery, right Hx of tubal ligation Hx of hysterectomy Family History Father HTN (hypertension) Mother CVD (cardiovascular disease) Social History Household Members: Spouse and Children Housing: Apartment Alcohol intake: never Physical Exam Vital Signs: Last Vital Signs Pulse 67 11/28/24 13:31 BP 124/86 11/28/24 13:31 Pulse Ox 98 11/28/24 13:31 Oxygen Delivery Method Room Air 11/28/24 13:31 BMI result Body Mass Index 22.5 Assessment & Plan Assessment & Plan (1) Multinodular goiter (nontoxic): Code(s): E04.2 - Nontoxic multinodular goiter Category: Medical Plan: Patient with no family history of thyroid cancer, with no personal history of head or neck radiation who has history of multinodular goiter diagnosed in January 2023 with the help of ultrasound. She had 1 reading of low TSH in January of 2023 of 0.11 with normal free T4 levels. Subsequently thyroid uptake and scan in June of 2023 showed normal overall thyroid uptake with some increased prominence at the site of her nodules but it was indeterminate whether her 1.1 cm suspicious right lobe nodule of TR 5 had increased uptake. FNA 06/08/2024 of the 1.1 cm right superior TR 5 nodule came back nondiagnostic, [place] category 1. Likely this is a hypervascular nodule, with possibly increased uptake suggested on uptake and resulting in nondiagnostic results. Given that the nodule is so small plus likely this is I hyper functioning nodule, it was decided between the patient and me to hold off on repeating a biopsy.. I explained to the patient that the probability of malignancy nondiagnostic nodules is anywhere from 4-25% which is quite variable. Ultrasound thyroid from October 2024 shows stable size of the nodules. Technically this is TR 5 category but given it is not even 1 cm in size, I will continue to follow this for now. Normal thyroid function from October 2024. Plan: -follow up in 1 year with repeat ultrasound in October 2025. -TSH, free T4 to be done in October 2025 (2) HTN (hypertension): Code(s): I10 - Essential (primary) hypertension Category: Medical Qualifiers: Hypertension type: unspecified Qualified Code(s): I10 - Essential (primary) hypertension Plan: Patient with history of hypertension since her 50s. Noted to have elevated blood pressure in the 150 systolic. She measures it at home as well sometimes and sees that it has been slightly elevated. She is on metoprolol 25 mg once day and losartan 100 mg daily and has been taking her medications regularly. She has history of sudden cardiac in the family with her mother dying at age 43. Also has history of hypokalemia in the chart with potassium level of 3.1. This has been she used to be on hydrochlorothiazide. Blood work from April 2024 showed aldosterone level of 3 hence unlikely that she has primary hyperaldosteronism. Potassium of this time was normal. However renin was noted to be suppressed at 0.06 consistent with low renin hypertension. She would benefit from minerlocorticoid receptor antagonist to better control her blood pressure. Last visit we started on spironolactomr 12.5 mg daily, patient toleratng well, BP under control, PCP to follow (3) Osteoporosis: Code(s): M81.0 - Age-related osteoporosis without current pathological fracture Category: Medical Qualifiers: Osteoporosis type: other Presence of current pathological fracture: w ithout current pathological fracture Qualified Code(s): M81.8 - Other osteoporosis without current pathological fracture Plan: Patient with history of osteoporosis with T-score of-2.5 at the left femoral neck and a DEXA scan from April of 2024. She was on alendronate for a year in 2020 . . Risk factors early menopause?, surgical hystrectomy at age 44, not sure of ovaries intact, she didnt go on HRT, no hot flashes. Bone density scan from October 2024 showed osteopenia at the lumbar spine with T-score of-2.1, 2.8% increase from previous bone density in 2020, T-score of - 2.5 at the left femoral neck consistent with borderline osteoporosis, left femur total T-score-1.7, with a 1.7 increased from previous. Normal evaluation for secondary causes of osteoporosis for blood work from April 2024. She is taking adequate amounts of vitamin-D. Advised to improve calcium intake to at least 1000 mg daily by taking 2-3 servings of calcium rich foods daily. Advised to continue with weight-bearing exercise such as walking for at least 150 minutes a week. At this point I will start her on Fosamax for borderline osteoporosis, discussed modes of administration, side effects including gastrointestinal side effects, hypocalcemia, atypical femur fracture and osteonecrosis of the jaw. Patient is agreeable to starting the medication. Plan: -next DEXA scan Oct 2025 -continue vitamin-D 2000 units daily -Advised to improve calcium intake to at least 1000 mg daily by taking 2-3 servings of calcium rich foods daily. -Advised to continue with weight-bearing exercise such as walking for at least 150 minutes a week. -Start fosamax 70 mg weekly -follow up in 1 year with bone resorption markers, calcium and kidney function, vitamin-D level Plan I spent 30 minutes in reviewing the record, seeing the patient and documenting in the medical record. Orders: Orders 2 US thyroid 10/30/25 E04.2 - Nontoxic multinodular goiter Thyroid Stimulating Hormone 1 Year E04.2 - Nontoxic multinodular goiter, M81.8 - Other osteoporosis without current pathological fracture Calcium 1 Year E04.2 - Nontoxic multinodular goiter, M81.8 - Other osteoporosis without current pathological fracture Vitamin D 25-OH Total 1 Year E04.2 - Nontoxic multinodular goiter, M81.8 - Other osteoporosis without current pathological fracture Alkaline Phosphatase Bone 1 Year E04.2 - Nontoxic multinodular goiter, M81.8 - Other osteoporosis without current pathological fracture Basic Metabolic Panel 1 Year M81.8 - Other osteoporosis without current pathological fracture Free T4 (Free Thyroxine) 1 Year E04.2 - Nontoxic multinodular goiter, M81.8 - Other osteoporosis without current pathological fracture Albumin Level 1 Year E04.2 - Nontoxic multinodular goiter, M81.8 - Other osteoporosis without current pathological fracture Collagen Type I C-Telopeptide 1 Year E04.2 - Nontoxic multinodular goiter, M81.8 - Other osteoporosis without current pathological fracture Medications: New 2 alendronate (Fosamax) 70 mg PO QWEEK 12 tabs 4RF Patient Instructions: Start fosamax 70 mg weekly Oral:?Administer first thing in the morning and 30 minutes before the first food, beverage (except plain water), or other medication(s) of the day. Do not take with mineral water or with other beverages. Patients should be instructed to stay upright (not to lie down) for 30 minutes?and?until after first food of the day (to reduce esophageal irritation). Tablet (Fosamax): Must be taken with 6 to 8 oz of plain water. The tablet should be swallowed whole; do not chew or suck. Do fasting blood work in 1 year a week prior to your next appointment Do Ultrasound of the thyroid in Oct 2025 , a few weeks prior to your next appointment Comience con fosamax 70 mg semanalmente V?a oral: Administrar a primera hora de la ma?kayley y 30 minutos antes de la primera comida, bebida (excepto agua corriente) u otros medicamentos del d?a. No leslee con agua mineral ni con otras bebidas. Se debe indicar a los pacientes que permanezcan erguidos (no tumbados) griselda 30 minutos y hasta despu?s de la primera comida del d?a (para reducir la irritaci?n esof?gica). Tableta (Fosamax): Debe tomarse con 6 a 8 oz de agua corriente. La tableta debe tragarse entera; no masticar ni chupar. Realizar an?lisis de rich en ayunas en 1 a?o lalit semana antes de smith pr?xima mau Realizar lalit ecograf?a de tiroides en 2025, unas semanas antes de smith pr?xima mau Coding Level of Care Code Est Pt Level 4 (98413) Diagnoses Multinodular goiter (nontoxic) E04.2 Hypertension, unspecified type I10 Hypertension type: unspecified Other osteoporosis without current pathological fracture M81.8 Osteoporosis type: other Presence of current pathological fracture: without current pathological fracture Time Spent (min) 30
[2024-11-28 13:31] VITALS: BP 124/86; PULSE 67; O2SAT 98; BMI 22.5
--- OUTSIDE RECORDS SUMMARY | 2024-11-28 15:54 | XMS_ITS | Encounter Summary ---
Author Organization [employer] Address [address] [facility] 7t [place] [address] Care Team Providers Care Sales Developer Name Role Phone Luz Marina Arias MD Primary Care Provider + Andrew Prasad PharmD Unavailable Reason for Visit * Reason Onset Date Comments Med Refill 11/23/2024 Encounter Details Date Type Department Care Team (Late st Contact Info) Description 11/23/2024 Refill [facility] [address] [place], [place] [phone] Luz Marina Arias MD [address] [place], [place] [phone] Essential hypertension Social History Tobacco Use Types Packs/Day Years [...] Care Team (Late st Contact Info) Description 12/23/2024 11:15 AM EDT Office Visit [facility] [address] [place] [phone] Luz Marina Arias MD [address] [place] [phone] documented as of this encounter Goals Goal Patient Goal Type Associated Problems Recent Progress Patient-Stated? Author Blood Pressure < 150/90 Blood Pressure 130/74(2024 3:38 PM EST) No Andrew Prasad PharmD Note: Per JNC-8: Age >60 w/o history of CKD or DM documented as of this encounter Visit Diagnoses Diagnosis Essential hypertension Unspecified essential hypertension documented in this encounter Care Teams Sales Developer Relationship Specialty Start Date End Date Luz Marina Arias MD [address] [place] [phone] PCP - General Family Medicine 06/29/18 Andrew Prasad PharmD [address] [place] [address] [phone] Pharmacist Internal Medicine 07/10/23 documented as of this encounter
--- OUTSIDE RECORDS SUMMARY | 2024-11-28 15:54 | XMS_ITS | Encounter Summary ---
Author Organization [employer] [facility] Address [address] [facility] 7t [place] [address] Care Team Providers Care Crew Lead Name Role Phone Luz Marina Arias MD Primary Care Provider + Andrew Prasad PharmD Unavailable [phone] Encounter Details Date Type Department Care Team (Latest Contact Info) Description 04/29/2021 Abstract [facility] CONVERSIONS Dental, Provider, DDS Social [...] Description 12/23/2024 11:15 AM EDT Office Visit [facility] [address] [place] [address] Luz Marina Arias MD [address] [place] [address] documented as of this encounter Visit Diagnoses Not on filedocumented in this encounter Care Teams Crew Lead Relationship Specialty Start Date End Date Luz Marina Arias MD [address] [place] [address] PCP - General Family Medicine 06/29/18 Andrew Prasad, PharmD [address] [place] [address] [phone] Pharmacist Internal Medicine 07/10/23 documented as of this encounter
--- OUTSIDE RECORDS SUMMARY | 2024-11-28 15:54 | XMS_ITS | Clinical Summary ---
Author Organization [employer] Address [address] [facility] 7t [place] [address] Care Team Providers Care Acute Care Occupational Therapist Name Role Phone Luz Marina Arias MD Primary Care Provider + Andrew Prasad PharmD Unavailable [phone] Allergies Active Allergy Reactions Criticality Noted Date Comments Lisinopril Cough 09/02/2017 Medications omega-3 (Fish Oil) 1000 MG capsule OTC- Takes 1 capsule by mouth daily Active calcium carbonate (Os-Boston) 1250 (500 Ca) MG tablet OTC- take 1 tablet by mouth daily 07/23/20 21 Active triamcinolone (Kenalog) 0.1 % cream Apply topically if needed in the morning and at bedtime (pain and swelling). 30 g 2 02/23/20 24 Active ketoconazole (NIZOral) 2 % shampooIndicati ons:Telogen effluvium Apply topically 2 (two) times a week. 120 mL 1 03/14/20 24 Active spironolactone (Aldactone) 25 MG tablet Take 12.5 mg by mouth Once per day. Active fluticasone (Flonase) 50 MCG/ACT nasal spray SPRAY 1 SPRAY INTO EACH NOSTRIL EVERY DAY 48 mL 09/26/20 24 Active cholecalciferol VITAMIN D (Vitamin D-3) 50 MCG (2000 UT) capsule TOME 1 CAPSULA POR VIA ORAL TODOS LOS OBRIEN 90 capsule 1 11/01/19 25 Active losartan (Cozaar) 100 MG tabletIndicatio ns:Essential hypertension Take 1 tablet (100 mg) by mouth Once per day. 90 tablet 3 11/24/19 25 Active metoprolol succinate XL (Toprol XL) 25 MG 24 hr tabletIndicatio ns:Essential hypertension Take 1 tablet by mouth once daily 90 tablet 3 11/24/19 25 Active gabapentin (Neurontin) 100 MG capsule take 1 capsule by oral route qhs 01/22/20 21 025 Discontinued(Me d list cleanup (will not trigger notification to Pharmacy)) cholecalciferol VITAMIN D (Vitamin D-3) 50 MCG (1999 UT) capsule TOME BAYRON CAPSULA TODOS LOS OBRIEN 90 capsule 1 05/06/20 24 025 Discontinued losartan (Cozaar) 100 MG tabletIndicatio ns:Essential hypertension Take 1 tablet (100 mg) by mouth Once per day. 90 tablet 3 05/13/20 24 025 Discontinued(Re order (will not trigger notification to Pharmacy)) metoprolol succinate XL (Toprol XL) 25 MG 24 hr tabletIndicatio ns:Essential hypertension Take 1 tablet by mouth once daily 90 tablet 3 05/13/20 24 025 Discontinued(Re order (will not trigger notification to Pharmacy)) Active Problems Problem Noted Date Diagnosed Date [...] EDT): - seen by endocrinology (Dr. Islas building trades instructor) - will reach out to them for endocrinology referral to [facility] Hypokalemia 10/08/2023 Assessment & Plan (10/08/2023 1:17 [...] 12.5mg BID Order BMP and FU at [facility] clinic in 2-3 wks and I will [...] Thyroid scan pending and follow up with building trades instructor Patient will have influenza immunization and denied COVID immunization Assessment & Plan (02/18/2023 12:43 PM EDT): TFT test seems to be preserved. Repeat TSH order Thyroid us to define thyroid nodules refer to building trades instructor. Encounters Date Type Department Care Team Description 11/23/2024 Refill [facility] [address] [place] [address] Luz Marina Arias MD Essential hypertension 11/23/2024 Travel 11/03/2024 Orders Only [facility] [address] [place], [place] [address] Luz Marina Arias MD 11/01/2024 Refill [facility] [address] [place], [place] [address] Luz Marina Arias MD 10/26/2024 2:30 PM EST Telemedicine [facility] [address] [facility] [place] [address] Andrew Prasad, PharmD Essential hypertension (Primary Dx) 09/30/2024 Telephone [facility] [address] [place] [address] Luz Marina Arias MD November recall 09/30/2024 Telephone [facility], [place] [phone] Luz Marina Arias MD 09/24/2024 Refill [facility] [place] [address] Luz Marina Arias MD from Last 3 [...] Sign Reading Time Taken Comments Blood Pressure 130/74 11/23/2024 3:38 PM EST Pulse 66 11/23/2024 3:30 PM EST Temperature 36.1 ??C (97 ??F) 06/27/2024 2:43 [...] Description 12/23/2024 11:15 AM EDT Office Visit [facility] [address] [place] [address] Luz Marina Arias MD [address] [place] [address] Health Maintenance Due Date Last Done Comments [...] 150/90 Blood Pressure 130/74(2024 3:38 PM EST) Andrew June, PharmD Note: Per JNC-8: Age >60 w/o history of CKD or DM Procedures Procedure Name Priority Date/Time Associated Diagnosis Comments US THYROID Routine 11/11/2024 3:50 PM EST BASIC METABOLIC PANEL Routine 11/03/2024 1:30 PM [...] Recently Relevant to Health Maintenance Results * US Thyroid (11/11/2024 3:50 PM EST) Anatomical Region Laterality Modality Head, Neck Ultrasound 11/11/2024 3:50 PM EST Narrative 11/22/2024 11:39 AM EST ? [facility] ?[address] ?[place] [address] ? Ultrasound Report ? Signed ? Patient: Angelic Alonso ?MR#: [id number] ?? 54 ? : 1960 ?Acct:[id number] ? Age/Sex: 64 / F ?ADM Date: 11/11/24 ? Loc: HO.US ? Attending Dr: Cynthia Miller MD ? Ordering Physician: Cynthia Miller MD ?? Date of Service: 11/11/24 ?? Procedure(s): US thyroid ?? Accession Number(s): [id number] ? cc: Luz Marina Arias MD; Cynthia Miller MD ? EXAMINATION: ?? US THYROID ? CLINICAL INFORMATION: ?? Essential (primary) hypertension. ? COMPARISON: ?? November 19, 2023. ? TECHNIQUE: ?? Linear transducer grayscale and color Doppler examination with ?? attention to the region of the thyroid. ? FINDINGS: ? SIZE: Measurements of the thyroid lobes and nodules are given in ?? sagittal, anteroposterior and transverse dimensions respectively. ? Right Thyroid Lobe: 4.7 x 1.1 x 1.4 cm, volume 4.0 mL. ?? Previous: 4.4 x 1.2 x 1.6 cm, volume: 4.7 cc. ?? Parenchyma: The gland echotexture is heterogeneous. Thyroid vascularity ?? is normal. ? Left Thyroid Lobe: 3.3 x 0.9 x 1.3 cm, volume 2.0 mL. ?? Previous: 4.0 x 1.4 x 1.4 cm, volume 4.0 cc. ?? Parenchyma: The gland echotexture is heterogeneous. Thyroid vascularity ?? is normal. ? Isthmus: 0.2 cm in maximum AP dimension. ?? Previous 0.2 ? Estimated total number of nodules greater than or equal to 1 cm: None. ?? Pst Manager nodules are described as follows: ? 1. Location: Upper segment right lobe.. ? Size: 0.5 x 0.3 x 0.5 cm, volume 0.04 mL. ?? Previous: 0.6 x 0.4 x 0.6 cm, volume 0.06 cc. ? Nodule characteristics: ? Composition: Solid (2). ? Echogenicity: Isoechoic (1). ? Shape: Not taller than wide (0). ? Margins: Smooth (0). ? Echogenic Foci: None (0). ? ACR TI-RADS total points: 3 ? ACR TI-RADS category: 3 ? 2. Location: [Upper segment, right lobe.. ? Size: 0.9 x 0.5 x 0.7 cm, volume 0.2 mL. ?? Previous: 1.1 x 0.6 x 0.6 cm, volume 0.3 cc. ? Nodule characteristics: ? Composition: Solid (2). ? Echogenicity: Hypoechoic (2). ? Shape: Not taller than wide (0). ? Margins: Smooth (0). ? Echogenic Foci: None (0). ? ACR TI-RADS total points: 7 ? ACR TI-RADS category: 5 ? 3. Location: Lower aspect right lobe.. ? Size: 0.3 x 0.2 x 0.3 cm, volume 0.011 ?? mL. ?? Previous: 0.4 x 0.2 x 0.4 cm, volume 0.02 cc. ? Nodule characteristics: ? Composition: Solid (2). ? Echogenicity: Hypoechoic (2). ? Shape: Not taller than wide (0). ? Margins: Smooth (0). ? Echogenic Foci: None (0). ? ACR TI-RADS total points: 4 ? ACR TI-RADS category: 4 ? NODES: No lymphadenopathy is seen in the tissue surrounding the thyroid ?? gland. ? US/US thyroid ?? IMPRESSION: ?? ACR TI-RADS 3 in the upper right thyroid lobe. ?? ACR TI-RADS 5, upper right thyroid lobe. ?? ACR TI-RADS 4, lower right thyroid lobe. ?? Overall no gross change.. ? ACR TI-RADS RECOMMENDATION REFERENCE: ?? Ultrasound-guided fine-needle aspiration, followup ultrasound, no ?? further follow up. ? * TR1 (0 point) and TR2 (2 points): No FNA or follow up. ? * TR3 (3 points): FNA if more than or equal to 2.5 cm in maximum ?? dimension, followup ultrasound in 1, 3 and 5 years if 1.5 to 2.4 cm in ?? maximum dimension. ? * TR4 (4-6 points): FNA if more than or equal to 1.5 cm in maximum ?? dimension, followup ultrasound in 1, 2, 3 and 5 years if 1 to 1.4 cm in ?? maximum dimension. ? * TR5 (more than or equal to 7 points): FNA if more than or equal to 1 ?? cm in maximum dimension, followup ultrasound every year for 5 years if ?? 0.5 to 0.9 cm in maximum dimension. ? * TR3, TR4 or TR5 nodules that are below the size threshold for ?? followup receive no follow up. ? Electronically signed by: ??Serge Madison MD ??11/22/2024 11:36 AM ?? EST RP ? Dictated By: ?Serge Payne MD ? Signed By: ?<Electronically signed by Serge Otoole MD in OV> ? 11/22/246 ? DD/ 1550 ? TD/TT: 11/11/24 1605 ? Carry In Worker: ? Procedure Note Donotuseinterpreter, Image - 11/22/2024 [place] [id number] Ultrasound Report Signed Patient: Azalia Alonso#: [id number] 54 : 1960cct:[id number] Age/Sex: 64 / FADM Date: 11/11/24 Loc: HO.US Attending Dr: Cynthia Miller MD Ordering Physician: Cynthia Miller MD Date of Service: 11/11/24 Procedure(s): US thyroid Accession Number(s): [id number] cc: Luz Marina Arias MD; Cynthia Miller MD EXAMINATION: US THYROID CLINICAL INFORMATION: Essential (primary) hypertension. COMPARISON: November 19, 2023. TECHNIQUE: Linear transducer grayscale and color Doppler examination with attention to the region of the thyroid. FINDINGS: SIZE: Measurements of the thyroid lobes and nodules are given in sagittal, anteroposterior and transverse dimensions respectively. Right Thyroid Lobe: 4.7 x 1.1 x 1.4 cm, volume 4.0 mL. Previous: 4.4 x 1.2 x 1.6 cm, volume: 4.7 cc. Parenchyma: The gland echotexture is heterogeneous. Thyroid vascularity is normal. Left Thyroid Lobe: 3.3 x 0.9 x 1.3 cm, volume 2.0 mL. Previous: 4.0 x 1.4 x 1.4 cm, volume 4.0 cc. Parenchyma: The gland echotexture is heterogeneous. Thyroid vascularity is normal. Isthmus: 0.2 cm in maximum AP dimension. Previous 0.2 Estimated total number of nodules greater than or equal to 1 cm: None. Pst Manager nodules are described as follows: 1. Location: Upper segment right lobe.. Size: 0.5 x 0.3 x 0.5 cm, volume 0.04 mL. Previous: 0.6 x 0.4 x 0.6 cm, volume 0.06 cc. Nodule characteristics: Composition: Solid (2). Echogenicity: Isoechoic (1). Shape: Not taller than wide (0). Margins: Smooth (0). Echogenic Foci: None (0). ACR TI-RADS total points: 3 ACR TI-RADS category: 3 2. Location: [Upper segment, right lobe.. Size: 0.9 x 0.5 x 0.7 cm, volume 0.2 mL. Previous: 1.1 x 0.6 x 0.6 cm, volume 0.3 cc. Nodule characteristics: Composition: Solid (2). Echogenicity: Hypoechoic (2). Shape: Not taller than wide (0). Margins: Smooth (0). Echogenic Foci: None (0). ACR TI-RADS total points: 7 ACR TI-RADS category: 5 3. Location: Lower aspect right lobe.. Size: 0.3 x 0.2 x 0.3 cm, volume 0.011 mL. Previous: 0.4 x 0.2 x 0.4 cm, volume 0.02 cc. Nodule characteristics: Composition: Solid (2). Echogenicity: Hypoechoic (2). Shape: Not taller than wide (0). Margins: Smooth (0). Echogenic Foci: None (0). ACR TI-RADS total points: 4 ACR TI-RADS category: 4 NODES: No lymphadenopathy is seen in the tissue surrounding the thyroid gland. US/US thyroid IMPRESSION: ACR TI-RADS 3 in the upper right thyroid lobe. ACR TI-RADS 5, upper right thyroid lobe. ACR TI-RADS 4, lower right thyroid lobe. Overall no gross change.. ACR TI-RADS RECOMMENDATION REFERENCE: Ultrasound-guided fine-needle aspiration, followup ultrasound, no further follow up. * TR1 (0 point) and TR2 (2 points): No FNA or follow up. * TR3 (3 points): FNA if more than or equal to 2.5 cm in maximum dimension, followup ultrasound in 1, 3 and 5 years if 1.5 to 2.4 cm in maximum dimension. * TR4 (4-6 points): FNA if more than or equal to 1.5 cm in maximum dimension, followup ultrasound in 1, 2, 3 and 5 years if 1 to 1.4 cm in maximum dimension. * TR5 (more than or equal to 7 points): FNA if more than or equal to 1 cm in maximum dimension, followup ultrasound every year for 5 years if 0.5 to 0.9 cm in maximum dimension. * TR3, TR4 or TR5 nodules that are below the size threshold for followup receive no follow up. Electronically signed by: Serge Madison MD 11/22/2024 11:36 AM EST RP Dictated By: Serge Payne MD Signed By: <Electronically signed by Serge Otoole MDin OV> 11/22/24 1136 DD/ 1550 TD/TT: 11/11/24 1605 Carry In Worker: [facility] External Provider IMG US PROCEDURES Final Result * Basic Metabolic Panel (11/03/2024 1:30 PM EST) Sodium 137 135 - 145 mmol/L [facility] Potassium 3.6 3.3 - 5.1 mmol/L [facility] Chloride 99 96 - 108 mmol/L [facility] Carbon Dioxide 28 22 - 29 mmol/L [facility] Anion Gap 14 12 - 20 [facility] Urea Nitrogen (BUN) 14 9 - 16 mg/dL [facility] Creatinine, Serum 0.84 0.5 - 1.4 mg/dL [facility] Estimated Glomerular Filt Rate >60 [facility] Comment:Chronic Kidney Disea se: Estimated GFR < 60 mL/min/1.55s2Dvmwid Kidney Disease: Estimated GFR < 15 mL/min/1.73m2 Glucose 101 60 - 115 mg/dL [facility] Calcium 10.1 8.4 - 10.2 mg/dL [facility] 11/03/2024 1:30 PM EST 11/03/2024 3:52 PM EST Luz Marina Arias MD LAB BLOOD ORDERABLES Fin al Result Performing Organization Address [facility] Co de Phone Number [facility] [address] [place] [address] [phone] * Hepatitis Panel, General (02/02/2024 9:10 AM EDT) Hepatitis A IgM Nonreactive Nonreactive [facility] Comment:IgM antibodies to DOCKERY V not detected; does not exclude earlyacute or recovered HAV infection. ~Hepatitis B Surface Antibody REACTIVE Nonreactive [facility] Comment:REACTIVE: > 11.99 mI U/mL Hepatitis B Core Antibody Nonreactive Nonreactive [facility] Hepatitis C Antibody Nonreactive Nonreactive [facility] Comment:Antibodies to HCV no t detected; does not exclude early acuteHCV infection. Hepatitis B Surface Ag Negative Negative [facility] Blood 02/02/2024 9:10 AM EDT 02/02/2024 11:41 AM EDT Luz Marina Arias MD LAB BLOOD ORDERABLES Fin al Result Performing Organization Address [facility] Co de Phone Number [facility] [address] [place] [address] [phone] * HIV-1/2 Antigen and Antibodies, Fourth Generation, with Reflexes (02/02/2024 9:10 AM EDT) HIV AB/AG Nonreactive Nonreactive [facility] Comment:HIV-1 p24 Ag and/or HIV-1/HIV-2 Ab not detected.A test result that is nonreactive does not exclude thepossibility of exposure to or infection with HIV-1 and/orHIV-2. Nonreactive results in this assay for individualswith prior exposure to HIV-1 and/or HIV-2 may be due toantigen and antibody levels that are below the limit ofdetection of this assay.The [employer] HIV Ag/Ab Combo assay result andsupplemental assay [...] Result Performing Organization Address [facility] Co de Phone Number [facility] [address] [place] [address] [phone] * (ABNORMAL) Lipid Panel with Reflex to Direct LDL (12/08/2023 3:00 PM EDT) Triglycerides 85 <150 mg/dL [facility] Comment:Desirable Triglyceri de: less than 150 mg/dLBorderline High Triglyceride 150-199 mg/dLHigh Triglyceride: 200-499 mg/dLVery High Triglyceride: greater than or equal to 5OO mg/dL Cholesterol 204(H) <200 mg/dL [facility] Comment:Desirable Cholestero l: less than 200 mg/dLBorderline High Cholesterol: 200-239 mg/dLHigh Cholesterol: greater than 239 mg/dL LDL Cholesterol Calculated 120(H) <100 mg/dL [facility] Comment:Desirable LDL: less than 100 mg/dLNear Optimal/Above Optimal LDL: 110- 129 mg/dLBorderline High LDL: 130-159 mg/dLHigh LDL: 160-189 mg/dLVery High LDL: greater than or equal to 190 mg/dL HDL Cholesterol 67 >40 mg/dL [facility] Comment:Desirable HDL: great er than 40 mg/dL Note: This HDL assay may give artificially low results in patients with liver disease. Blood 12/08/2023 3:00 PM EDT 12/08/2023 4:06 PM EDT Luz Marina Arias MD LAB BLOOD ORDERABLES Fin al Result Performing Organization Address [facility]/ZIP Co de Phone Number [facility] [address] [place] [address] [phone] * THINPREP TIS PAP (08/08/2021 11:03 AM EST) Clinical Information: None given [facility] COMMENT SEE COMMENT FOUNDAT[facility] ON [...] has been evaluated with computer assisted technology. [facility] Properties Supervisor : SEE COMMENT [facility] Comment: DCR, CT(ASCP) CT screening location: [address] ??[phone] Interpretation/R esult: Negative for intraepithelial lesion or malignancy. [facility] LMP: NONE GIVEN [facility]OUND[facility] N [facility] Prev. BX: NONE [facility]IVEN [facility] Prev. PAP: NONE GIVEN FOUNDAT[facility] ON LAB SYSTEM SOURCE: [employer] [facility] Statement Of Adequacy: SATISFACTORY FOR EVALUATION [facility] 08/08/2021 11:0 3 AM EST Luz Marina Arias MD LAB PATHOLOGY ORDERABLES Final Result [facility] [address] * HPV mRNA E6/E7 (08/08/2021 11:03 AM EST) HPV nRNA E6/E7 Not Detected Not Detected [facility] Comment: Methodology: Steel Worker-Mediated Amplification This assay detects E6/E7 viral messenger RNA (mRNA) from 14 high-risk HPV types (16,18,31,33,35,39,45,51,52,56,58,59,66,68). ? The analytical performance characteristics of this assay have been determined by [employer]. The modifications have not been cleared or approved by the FDA. This assay has been validated pursuant to the CLIA regulations and is used for clinical purposes. ?? For additional information, please refer to http://education.Firecomms/faq/QSX225f6 (This link if provided for information/ educational purposes only.) 08/08/2021 11:0 3 AM EST Luz Marina Arias MD LAB BLOOD ORDERABLES Fin al Result [facility] [address] * Mammography Report 1 (05/21/2021 1:45 [...] EDT Recommended 10 year follow up ( [facility] Tanya Provider HEALTH MAINTENANCE Final Result from Last 3 Months or Most Recently Relevant to Health Maintenance Insurance [address] [place] [phone] [facility] C3 HSN PARTIAL [address] [place] [address] DENTAL - HSN PARTIAL (MEDICAID) Care Teams Acute Care Occupational Therapist Relationship Specialty Start Date End Date Luz Marina Arias MD [address] [place] [phone] PCP - General Family Medicine 06/29/18 Andrew Prasad, SunD [address] [place] [phone] Pharmacist Internal Medicine 07/10/23
--- OUTSIDE RECORDS SUMMARY | 2024-11-28 15:54 | XMS_ITS | Encounter Summary ---
Author Organization [employer] Address [address] [facility] 7t [place] [address] Care Team Providers Care Heel Cementer Name Role Phone Luz Marina Arias MD Primary Care Provider + Andrew Prasad PharmD Unavailable Encounter Details Date Type Department Care Team (Late st Contact Info) Description 03/12/2023 Abstract [facility] [address] [place] [address] Luz Marina Arias MD [address] [place] [phone] Social History Tobacco Use Types Packs/Day Years [...] Description 12/23/2024 11:15 AM EDT Office Visit [facility] [address] [place] [address] Luz Marina Arias MD [address] [place] [address] documented as of this encounter Procedures Procedure Name Priority Date/Time Associated Diagnosis Comments COLONOSCOPY Routine 02/27/2014 10:35 AM EDT documented in this encounter Results * Colonoscopy (02/27/2014 10:35 AM EDT) Colonoscopy Normal Normal Narrative Roma Medley - 02/27/2014 10:35 AM EDT Recommended 10 year follow [place] ( [facility] Historical Provider HEALTH MAINTENANCE Final Result documented in this encounter Visit Diagnoses Not on filedocumented in this encounter Care Teams Heel Cementer Relationship Specialty Start Date End Date Luz Marina Arias MD [address] [place] [address] PCP - General Family Medicine 06/29/18 Andrew Prasad, SunD [address] [place] [phone] Pharmacist Internal Medicine 07/10/23 documented as of this encounter
--- OUTSIDE RECORDS SUMMARY | 2024-11-28 15:54 | XMS_ITS | Encounter Summary ---
Author Organization [employer] Address [address] [facility] 7t [place] [address] Care Team Providers Care Client Service Coordinator Name Role Phone Luz Marina Arias MD Primary Care Provider + Andrew Prasad PharmD Unavailable [phone] Encounter Details Date Type Department Care Team (Latest Contact Info) Description 11/23/2024 Travel Social History Tobacco Use Types Packs/Day Years [...] Description 12/23/2024 11:15 AM EDT Office Visit [facility] [address] [place] [address] Luz Marina Arias MD [address] [place] [address] documented as of this encounter Goals Goal Patient Goal Type Associated Problems Recent Progress Patient-Stated? Author Blood Pressure < 150/90 Blood Pressure 130/74(2024 3:38 PM EST) Andrew June, PharmD Note: Per JNC-8: Age >60 w/o history of CKD or DM documented as of this encounter Visit Diagnoses Not on filedocumented in this encounter Care Teams Client Service Coordinator Relationship Specialty Start Date End Date Luz Marina Arias MD [address] [place] [address] PCP - General Family Medicine 06/29/18 Andrew Prasad, PharmD [address] [place] [phone] Pharmacist Internal Medicine 07/10/23 documented as of this encounter
--- OUTSIDE RECORDS SUMMARY | 2024-11-28 15:54 | XMS_ITS | Encounter Summary ---
Author Organization [employer] Address [address] [facility] 7t [place] [address] Care Team Providers Care Social Worker Health Services Name Role Phone Luz Marina Arias MD Primary Care Provider + Andrew Prasad PharmD Unavailable [phone] Reason for Visit * Reason Comments Med Refill Encounter Details Date Type Department Care Team ([facility] st Contact Info) Description 07/10/2024 Refill [facility] [address] [place], [place] [phone] Lucero Gonzalez MD [address] [place] [address] Onycholysis Social History Tobacco Use Types Packs/Day [...] Description 12/23/2024 11:15 AM EDT Office Visit [facility] [address] [place], [place] [phone] Luz Marina Arias MD [address] [place] [phone] documented as of this encounter Goals Goal Patient Goal Type Associated Problems Recent Progress Patient-Stated? Author Blood Pressure < 150/90 Blood Pressure 130/74(2024 3:38 PM EST) No Andrew Prasad PharmD Note: Per JNC-8: Age >60 w/o history of CKD or DM documented as of this encounter Visit Diagnoses Diagnosis Onycholysis Other specified disease of nail documented in this encounter Care Teams Social Worker Health Services Relationship Specialty Start Date End Date Luz Marina Arias MD [address] [place] [phone] PCP - General Family Medicine 06/29/18 Andrew Prasad, Melisa [address] [place] [address] [phone] Pharmacist Internal Medicine 07/10/23 documented as of this encounter
--- OUTSIDE RECORDS SUMMARY | 2024-11-28 15:54 | XMS_ITS | Encounter Summary ---
Author Organization [employer] Address 75 [facility] 7t [place] [address] Care Team Providers Care Retail Area Manager Name Role Phone Luz Marina Arias MD Primary Care Provider + Andrew Prasad PharmD Unavailable [phone] Reason for Visit * Reason Comments Med Refill Encounter Details Date Type Department Care Team ([facility] st Contact Info) Description 11/01/2024 Refill [facility] [address] [place], [place] [phone] Luz Marina Arias MD 230 [place], [place] [phone] Social History Tobacco Use Types Packs/Day Years [...] Description 12/23/2024 11:15 AM EDT Office Visit [facility] [address] [place], [place] [phone] Luz Marina Arias MD [address] [place] [phone] documented as of this encounter Goals Goal Patient Goal Type Associated Problems Recent Progress Patient-Stated? Author Blood Pressure < 150/90 Blood Pressure 130/74(2024 3:38 PM EST) No Andrew Prasad, Melisa Note: Per JNC-8: Age >60 w/o history of CKD or DM documented as of this encounter Visit Diagnoses Not on filedocumented in this encounter Care Teams Retail Area Manager Relationship Specialty Start Date End Date Luz Marina Arias MD [address] [place] [phone] PCP - General Family Medicine 06/29/18 Andrew Prasad, SunD [address] [place] [address] [phone] Pharmacist Internal Medicine 07/10/23 documented as of this encounter
--- OUTSIDE RECORDS SUMMARY | 2024-11-28 15:54 | XMS_ITS | Encounter Summary ---
Author Organization [employer] [facility] Address [address] [facility] 7t [place] [address] Care Team Providers Care Cotton Acreage Measurer Name Role Phone Luz Marina Arias MD Primary Care Provider + Andrew Prasad PharmD Unavailable [phone] Encounter Details Date Type Department Care Team (Latest Contact Info) Description 07/30/2022 Abstract [facility] CONVERSIONS Dental, Provider, DDS Social History Tobacco [...] Description 12/23/2024 11:15 AM EDT Office Visit [facility] [address] [place] [address] Luz Marina Arias MD [address] [place] [address] documented as of this encounter Visit Diagnoses Not on filedocumented in this encounter Care Teams Cotton Acreage Measurer Relationship Specialty Start Date End Date Luz Marina Arias MD [address] [place] [address] PCP - General Family Medicine 06/29/18 Andrew Prasad, PharmD [address] [place] [address] [phone] Pharmacist Internal Medicine 07/10/23 documented as of this encounter
--- OUTSIDE RECORDS SUMMARY | 2024-11-28 15:54 | XMS_ITS | Encounter Summary ---
Author Organization [email or web address] Address [address] [facility] 7t [place] [address] Care Team Providers Care Financial Foundations Representative Name Role Phone Luz Marina Arias MD Primary Care Provider + Andrew Prasad PharmD Unavailable [phone] Encounter Details Date Type Department Care Team (Late st Contact Info) Description 11/03/2024 Orders Only [facility] [address] [place], [place] [phone] Luz Marina Arias MD [address] [place], [place] [phone] Social History Tobacco Use Types Packs/Day Years [...] t he electric, gas, oil or water [employer] threatened to shut off services in your [...] Description 12/23/2024 11:15 AM EDT Office Visit [facility] [address] [place] [address] Luz Marina Arias MD [address] [place] [address] documented as of this encounter Goals Goal Patient Goal Type Associated Problems Recent Progress Patient-Stated? Author Blood Pressure < 150/90 Blood Pressure 130/74(2024 3:38 PM EST) No Andrew Prasad, SunD Note: Per JNC-8: Age >60 w/o history of CKD or DM documented as of this encounter Procedures Procedure Name Priority Date/Time Associated Diagnosis Comments US THYROID Routine 11/11/2024 3:50 PM EST BASIC METABOLIC PANEL Routine 11/03/2024 1:30 PM EST documented in this encounter Results * US Thyroid (11/11/2024 3:50 PM EST) Anatomical Region Laterality Modality Head, Neck Ultrasound 11/11/2024 3:50 PM EST Narrative 11/22/2024 11:39 AM EST ? [facility] ?[address] ?[place] [address] ? Ultrasound Report ? Signed ? Patient: Alonso,Angelic ?MR#: [id number] ?? 54 ? : 1960 ?Acct:[id number] ? Age/Sex: 64 / F ?ADM Date: 02/14/25 ? Loc: HO.US ? Attending Dr: Cynthia Miller MD ? Ordering Physician: Cynthia Miller MD ?? Date of Service: 11/11/24 ?? Procedure(s): US thyroid ?? Accession Number(s): [id number] ? cc: Luz Marina Arias MD; Cynthia [...] or equal to 1 cm: None. ?? House Painter Helper nodules are described as follows: ? 1. [...] Madison MD ??11/22/2024 11:36 AM ?? EST ? Dictated By: ?Serge Payne MD ? Signed By: ?<Electronically signed by Serge Otoole MD in OV> ? 11/22/24 1136 ? DD/ 1550 ? TD/TT: 11/11/24 1605 ? Patent Prosecution Attorney: ? Procedure Note Mariam, Image - 11/22/[address] [address] Ultrasound Report Signed Patient: Azalia Alonso#: [id number] 54 : 1960cct:[id number] Age/Sex: 64 / FADM Date: 11/11/24 Loc: HO.US Attending Dr: Cynthia Miller MD Ordering Physician: Cynthia Miller MD Date of Service: 11/11/24 Procedure(s): thyroid Accession Number(s): [id number] cc: Luz Marina Arias MD; Cynthia Miller [...] than or equal to 1 cm: None. House Painter Helper nodules are described as follows: 1. Location: [...] Serge Madison MD 11/22/2024 11:36 AM EST Dictated By: Serge Payne MD Signed By: <Electronically signed by Serge Otoole MDin OV> 11/22/24 1136 DD/ 1550 TD/TT: 11/11/24 1605 Patent Prosecution Attorney: us [facility] External Provider IMG US PROCEDURES Final Result * Basic Metabolic Panel (11/03/2024 1:30 PM EST) Sodium 137 135 - 145 mmol/L [facility] Potassium 3.6 3.3 - 5.1 mmol/L [facility] Chloride 99 96 - 108 mmol/L [facility] Carbon Dioxide 28 22 - 29 mmol/L [facility] Anion Gap 14 12 - 20 [facility] Urea Nitrogen (BUN) 14 9 - 16 mg/dL [facility] Creatinine, Serum 0.84 0.5 - 1.4 mg/dL [facility] Estimated Glomerular Filt Rate >60 [facility] Comment:Chronic Kidney Disea se: Estimated GFR < 60 mL/min/1.21y2Iluspg Kidney Disease: Estimated GFR < 15 mL/min/1.73m2 Glucose 101 60 - 115 mg/dL [facility] Calcium 10.1 8.4 - 10.2 mg/dL [facility] 11/03/2024 1:30 PM EST 11/03/2024 3:52 PM EST Luz Marina Arias MD LAB BLOOD ORDERABLES Fin al Result [facility] [address] [place] [address] [phone] documented in this encounter Visit Diagnoses Not on filedocumented in this encounter Care Teams Financial Foundations Representative Relationship Specialty Start Date End Date Luz Marina Arias MD [address] [place] [address] PCP - General Family Medicine 06/29/18 Andrew Prasad PharmD [address] [place] [phone] Pharmacist Internal Medicine 07/10/23 documented as of this encounter
--- OUTSIDE RECORDS SUMMARY | 2024-11-28 15:54 | XMS_ITS | Encounter Summary ---
Author Organization [employer] Address [address] [facility] 7t [place] [address] Care Team Providers Care Wood Mechanist Name Role Phone Luz Marina Arias MD Primary Care Provider + Andrew Prasad PharmD Unavailable [phone] Reason for Visit * Reason Onset Date Comments triage 01/29/2023 Encounter Details Date Type Department Care Team ([facility] st Contact Info) Description 01/29/2023 Telephone [facility] [address] [place], [place] [phone] Luz Marina Arias MD [address] [place], [place] [phone] triage Social History Tobacco Use Types Packs/Day [...] 01/29/2023 2:41 PM EDT Triage call with [employer] Teacher [place] [id number] Pt reports woke up this morning with [...] medications. Pt is advised to come to [facility] today or tomorrow morning and Pt agrees. [...] Description 12/23/2024 11:15 AM EDT Office Visit [facility] [address] [place] [phone] Luz Marina Arias MD [address] [place] [phone] documented as of this encounter Visit Diagnoses Not on filedocumented in this encounter Care Teams Wood Mechanist Relationship Specialty Start Date End Date Luz Marina Arias MD [address] [place] [phone] PCP - General Family Medicine 06/29/18 Andrew Prasad, SunD [address] [place] [phone] Pharmacist Internal Medicine 07/10/23 documented as of this encounter
== END 2024-11-28 14:29 | disposition home or self-care (01) ==
PROVIDERS: PCP Internal Medicine; Visit Provider Student in an Organized Health Care Education/Training Program
DX: E04.2 Nontoxic multinodular goiter (principal); I10 Essential (primary) hypertension; M81.8 Other osteoporosis without current pathological fracture
CPT/HCPCS: 99214

== ENCOUNTER → 2024-11-28 13:27 | Outpatient (BNVA) | payer MEDICAID, SELFPAY | PROVIDERS: PCP Internal Medicine; Visit Provider Student in an Organized Health Care Education/Training Program | DX: E04.2 Nontoxic multinodular goiter (principal); I10 Essential (primary) hypertension; M81.8 Other osteoporosis without current pathological fracture | CPT/HCPCS: 99212 ==

== ENCOUNTER 2025-08-26 17:01 | Emergency (ER) | payer MEDICAID, SELFPAY ==
--- NOTE | ~2025-08-26 | CT_ITS ---
CLINICAL HISTORY: headache, elevated BP CT head without contrast Comparison: CT/SR - CT HEAD WITHOUT IV CONTRAST - 09/21/23 22:50 EST Findings: No intra-axial mass, midline shift, hydrocephalus, or acute hemorrhage. No significant atrophy-like change or white matter disease. The visualized paranasal sinuses and mastoid air cells are normal. The orbits are within normal limits. No skull fracture. IMPRESSION: 1. No acute intracranial findings. This document has been electronically signed by: Aliza Brady MD on 08/26/2025 20:34:04
[2025-08-26 17:17] VITALS: BP 180/96; PULSE 64; RESP 20; TEMP 36.4; O2SAT 98; BMI 24.6
--- NOTE | 2025-08-26 17:19 | ED.GENADULT ---
HPI - General Adult General Chief complaint: General Medical Stated complaint: High blood Pressure Time Seen by Provider: 08/26/25 20:40 History of Present Illness ED Provider: Giovanny Ludwig MD HPI narrative: [age] female with chronic hypertension on metoprolol spironolactone and losartan adherent with medications awoke with mild frontal headache across the forehead. No head injuries no vomiting or nausea denies chest pain she said she had a pinpoint area of transient pain under left breast in the waiting room that resolved after just a few moments no pleuritic pain no cough fever. Related Data Home Medications ?Medication ?Instructions ?Recorded ?Confirmed cholecalciferol (vitamin D3) 25 25 mcg PO DAILY 12/13/20 11/28/24 mcg (1,000 unit) capsule duloxetine 30 mg capsule,delayed 30 mg PO DAILY 12/13/20 11/28/24 release (Cymbalta) omega-3 fatty acids 1,000 mg 1,000 mg PO DAILY 12/13/20 11/28/24 capsule (Fish Oil Concentrate) losartan 50 mg tablet 100 mg PO DAILY 06/22/24 11/28/24 metoprolol succinate 25 mg 25 mg PO ONCE 06/22/24 11/28/24 tablet,extended release 24 hr Previous Rx's ?Medication ?Instructions ?Recorded erythromycin 5 mg/gram (0.5 %) eye 0.5 inch ophthalmic (eye) TID 1 11/20/22 ointment week #3.5 grams ibuprofen 600 mg tablet 600 mg PO Q6H PRN fever or pain 01/27/23 #30 tabs ciprofloxacin 0.3 %-dexamethasone 4 drp otic (ear) left BID 7 days 05/20/24 0.1 % ear drops,suspension #7.5 mL (Ciprodex) ciprofloxacin HCl 0.3 % eye drops See Rx Instructions .Route 05/20/24 .COMPLEX #5 mL spironolactone 25 mg tablet 12.5 mg (1/2 x 25 mg) PO DAILY #30 06/22/24 tabs alendronate 70 mg tablet (Fosamax) 70 mg PO QWEEK #12 tabs 11/28/24 Allergies Allergy/AdvReac Type Severity Reaction Status Date / Time No Known Allergies (No Known Allergy Verified 08/26/25 17:21 Allergies*) [facility] Past Medical History Medical History Osteoporosis Multinodular goiter (nontoxic) Cervical spondylosis Fibromyalgia Ganglion cyst Osteoarthritis Vitamin D deficiency Osteopenia HTN (hypertension) Surgical History S/P foot surgery, right Hx of tubal ligation Hx of hysterectomy Family History Family History Father HTN (hypertension) Mother CVD (cardiovascular disease) Social History Social History Household Members: Spouse and Children Housing: Apartment Alcohol intake: never Advance Directives: No Advance Directives Information Provided: No Do you have a plan to hurt others: No Plan Patient : No Physical Exam ED Exam Exam: GENERAL: Well appearing. No apparent distress. Alert. HEAD/NECK: Normal to inspection. Neck supple. No cervical lymphadenopathy. EYES: Normal to inspection. Sclera non-icteric. ENMT: External nose normal. RESPIRATORY: Respiratory effort normal. Lungs clear to auscultation bilaterally. CARDIOVASCULAR: Regular rate. Normal rhythm. No murmur. No rubs. GI: Soft, non-tender, non-distended. No rebound or guarding. No masses palpable. No hepatosplenomegaly. SKIN: No jaundice. NEUROLOGICAL: Alert. PSYCHIATRIC: Alert. Appearance appropriate for situation. Attitude cooperative. OTHER: Comprehensive Neuro exam: Face symmetric, tongue midline, strong symmetric eye closure, pupils symmetric and reactive to light, intact sensation to the face throughout, intact strong face deviation and shoulder shrug. Sensation intact to light touch throughout 5 out of 5 strength in bilateral upper extremities, 5 and 5 strength in lower extremities Vital Signs: Vital Signs - 24 hr 08/26/25 17:17 08/26/25 21:56 Temperature 97.6 F Pulse Rate 64 68 Respiratory Rate 20 18 Blood Pressure 180/96 H 169/82 H Pulse Oximetry 98 98 Oxygen Delivery Method Room Air Room Air BMI result Body Mass Index 24.6 Course Course Course Narrative: This is a Rapid Medical Examination (RME) performed by Catracho Stewart PA-C in triage. Full HPI, ROS, assessment and treatment plan per primary provider in the Main ED. Hx: 65 yo F here for eval of elevated BP all day today. reports DOCKERY, dizziness, and pressure under L breast. taking BP meds as prescribed, no missed doses. Plan: labs, ekg Medical Decision Making Medical Decision Making MDM Narrative: Medical Decision Making: [age] female with chronic hypertension mildly to moderately hypertensive in the ED without active severe headache. Nonfocal neuro exam no active or concerning anginal or chest pain. Labs reassuring CT head noncontrast normal Preliminary Favored Differential Diagnosis: Essential hypertension, pain reaction, white coat hypertension, tension headache, dehydration, migraine among additional considered etiologies Testing Interpreted Independently: ?See below for details Radiology or Lab testing Results Reviewed: ?See below for details Consults: ?See below for details Independent Historians/External Chart Reviews: ?See below for details Social Determinants of Health Impacting MDM/Planning: ?See below for details Lab Data MDM Lab Attestation statement: I reviewed the patient's lab results. 08/26/25 17:58 08/26/25 17:58 Labs: Lab Results 08/26/25 Range/Units 17:58 WBC 6.8 (4.8-10.8) X10*3/uL RBC 4.46 (4.20-5.50) X10*6/uL Hgb 13.2 (12.0-16.0) g/dl Hct 40.6 (37.0-47.0) % MCV 91.0 (80.0-98.0) fL MCH 29.6 (27.0-33.0) pg MCHC 32.5 (31.0-35.0) g/dl RDW 12.7 (11.0-16.0) % Plt Count 227 (160-400) X10*3/uL MPV 11.7 (9.4-12.3) fL Immature Gran % (Auto) 0.4 (0.0-0.4) % Neut % (Auto) 62.0 (45-73) % Lymph % (Auto) 28.0 (20-40) % Hampton % (Auto) 7.7 (2-11) % Eos % (Auto) 1.0 (0-4) % Baso % (Auto) 0.9 (0-2) % Lymph # (Auto) 1.9 (1.2-4.9) X10*3/uL Hampton # (Auto) 0.5 (0.1-1.2) X10*3/uL Eos # (Auto) 0.1 (0.0-0.4) X10*3/uL Baso # (Auto) 0.1 (0.0-0.2) X10*3/uL Abs Immat Gran (auto) 0.03 (0.00-0.03) X10*3/uL Absolute Neuts (auto) 4.2 (2.0-8.3) x10*3/uL Absolute Nucleated RBC 0.000 (0.0-0.012) X10*3/uL Nucleated RBC % (auto) 0.0 (0.0-0.2) /100WBC Sodium 138 (135-145) mmol/L Potassium 3.5 (3.3-5.1) mmol/L Chloride 102 (96-108) mmol/L Carbon Dioxide 24 (22-29) mmol/L Anion Gap 16 (12-20) BUN 13 (9-16) mg/dL Creatinine 0.78 (0.5-1.4) mg/dL Estim Creat Clear Calc 60.9 Estimated GFR > 60 Random Glucose 97 (60-115) mg/dL Calcium 9.7 (8.4-10.2) mg/dL Magnesium 2.3 (1.6-2.6) mg/dL Total Bilirubin 0.6 (0.0-1.0) mg/dL AST 32 H (5-31) U/L ALT 21 (0-31) U/L Alkaline Phosphatase 100 (39-117) U/L Troponin I High Sens 2.7 (<3.5-17.0) ng/L Total Protein 8.2 H (6.5-8.0) g/dL Albumin 5.1 H (3.5-5.0) g/dL Independent Interpretation I performed an independent interpretation of an: EKG Interpretation: Sinus rhythm. Normal rate and access no ischemia. Discharge Plan Discharge Clinical Impression: HTN (hypertension) Qualifiers: Hypertension type: unspecified Qualified Code(s): I10 - Essential (primary) hypertension Patient Disposition: Home, Self-Care Instructions: Chronic Hypertension (DC) Additional Instructions: Call your primary physician to discuss possible medication management for your high blood pressure. Prescriptions: No Action erythromycin 5 mg/gram (0.5 %) ointment 0.5 inch ophthalmic (eye) TID 7 Days Qty: 3.5 0RF ciprofloxacin-dexamethasone [Ciprodex] 0.3-0.1 % drops,suspension 4 drp otic (ear) left BID 7 Days Qty: 7.5 0RF ciprofloxacin HCl 0.3 % drops See Rx Instructions .ROUTE .COMPLEX Qty: 5 0RF Rx Instructions: Instill 4 drops to left ear twice daily for 7 days ibuprofen 600 mg tablet 600 mg PO Q6H PRN (Reason: fever or pain) Qty: 30 0RF cholecalciferol (vitamin D3) 25 mcg (1,000 unit) capsule 25 mcg PO DAILY duloxetine [Cymbalta] 30 mg capsule,delayed release(DR/EC) 30 mg PO DAILY omega-3 fatty acids [Fish Oil Concentrate] 1,000 mg capsule 1,000 mg PO DAILY metoprolol succinate 25 mg tablet extended release 24 hr 25 mg PO ONCE losartan 50 mg tablet 100 mg PO DAILY alendronate [Fosamax] 70 mg tablet 70 mg PO QWEEK Qty: 12 4RF spironolactone 25 mg tablet 12.5 mg PO DAILY Qty: 30 5RF Interventions: ED Discharge Assessment Last Done: 08/26/25 22:23 Discharge Date/Time: 08/26/25 22:35 Print Language: Azerbaijani
--- NOTE | 2025-08-26 17:20 | ECG_ITS ---
Test Reason : HIGH BP Blood Pressure : */* mmHG Vent. Rate : 63 BPM Atrial Rate : 63 BPM P-R Int : 134 ms QRS Dur : 84 ms QT Int : 416 ms P-R-T Axes : 25 17 63 degrees QTcB Int : 425 ms Normal sinus rhythm Normal ECG When compared with ECG of 24-Dec-2023 21:12, No significant change was found Referred By: Yary Stewart Electronically Signed By: LUISANA YANEZ
[2025-08-26 18:02] LABS: MANUAL DIFF FLAG NO
[2025-08-26 18:14] LABS: Hematocrit 40.6 % (37.0-47.0); Hemoglobin 13.2 g/dl (12.0-16.0); Imm Gran Abs Auto 0.03 X10*3/uL (0.00-0.03); Imm Gran Pct Auto 0.4 % (0.0-0.4); Lymphocytes Absolute Auto 1.9 X10*3/uL (1.2-4.9); Mean Corpuscular HGB Conc 32.5 g/dl (31.0-35.0); Mean Corpuscular Hemoglobin 29.6 pg (27.0-33.0); Mean Corpuscular Volume 91.0 fL (80.0-98.0); NRBC Abs Auto 0.000 X10*3/uL (0.0-0.012); NRBC Pct Auto 0.0 /100WBC (0.0-0.2); Platelet Count 227 X10*3/uL (160-400); Red Blood Count 4.46 X10*6/uL (4.20-5.50); White Blood Count 6.8 X10*3/uL (4.8-10.8)
[2025-08-26 18:22] LABS: Alanine Aminotransferase 21 U/L (0-31); Albumin Level 5.1 g/dL (3.5-5.0); Alkaline Phosphatase 100 U/L (39-117); Anion Gap 16 (12-20); Aspartate Amino Transferase 32 U/L (5-31); Blood Urea Nitrogen 13 mg/dL (9-16); Calcium 9.7 mg/dL (8.4-10.2); Carbon Dioxide 24 mmol/L (22-29); Chloride 102 mmol/L (96-108); Creatinine Clr Calc Pharmacy 60.9; Estimated Glomerular Filt Rate > 60; Magnesium 2.3 mg/dL (1.6-2.6); Potassium 3.5 mmol/L (3.3-5.1); Sodium 138 mmol/L (135-145); Total Protein 8.2 g/dL (6.5-8.0)
[2025-08-26 18:29] LABS: Troponin-I High Sensitivity 2.7 ng/L (<3.5-17.0)
--- OUTSIDE RECORDS SUMMARY | 2025-08-26 20:29 | XMS_ITS | Clinical Summary ---
Author Organization [employer] Address [address] [place] [address] [address] [place] [address] Care Team Providers Care Oxidized Finish Plater Name Role Phone Luz Marina Arias MD Primary Care Provider + Andrew Prasad PharmD Unavailable [phone] Allergies Active Allergy Reactions Criticality Noted Date Comments Lisinopril Cough 09/02/2017 Medications omega-3 (Fish Oil) 1000 MG capsule OTC- Takes 1 capsule by mouth daily Active triamcinolone (Kenalog) 0.1 % cream Apply topically if needed in the morning and at bedtime (pain and swelling). 30 g 2 4 Active ketoconazole (NIZOral) 2 % shampooIndication s:Telogen effluvium Apply topically 2 (two) times a week. 120 mL 1 4 Active spironolactone (Aldactone) 25 MG tablet Take 12.5 mg by mouth Once per day. Active fluticasone (Flonase) 50 MCG/ACT nasal spray SPRAY 1 SPRAY INTO EACH NOSTRIL EVERY DAY 48 mL 4 Active losartan (Cozaar) 100 MG tabletIndications :Essential hypertension Take 1 tablet (100 mg) by mouth Once per day. 90 tablet 3 5 Active metoprolol succinate XL (Toprol XL) 25 MG 24 hr tabletIndications :Essential hypertension Take 1 tablet by mouth once daily 90 tablet 3 5 Active alendronate (Fosamax) 70 MG tablet Take 70 mg by mouth every 7 (seven) days. Take in the morning with a full glass of water, on an empty stomach, and do not take anything else by mouth or lie down for the next 30 min. Active calcium carbonate (Os-Boston) 1250 (500 Ca) MG tablet Take 1 tablet (1,250 mg) by mouth Once per day. OTC- take 1 tablet by mouth daily 90 tablet 3 5 Active cholecalciferol VITAMIN D (Vitamin D-3) 50 MCG (2000 UT) capsule TOME 1 CAPSULA POR VIA ORAL TODOS LOS OBRIEN 90 capsule 1 5 Active Active Problems Problem Noted Date Diagnosed Date Screening for colorectal cancer 12/23/2024 Assessment & Plan (12/23/2024 3:06 PM EDT): Last colonoscopy 2013, referred for follow-up colonoscopy. Tenosynovitis of thumb 12/23/2024 Assessment & Plan (12/23/2024 3:05 PM EDT): Take Tylenol as needed and refer to OT Follow-up with me in 2 months, may need steroid injection Impacted cerumen of left ear 06/27/2024 Assessment [...] Fluticasone nasal daily x 1w Take Acetaminophen (Tylenol )/Ibuprofen as needed to reduce fever, headache, body [...] of highly saturated fats or trans fats. Multinodular goiter (nontoxic) 01/25/2024 Assessment & Plan (12/23/2024 3:05 PM EDT): Nodules have been stable on yearly thyroid ultrasound, status post undetermined FNA @ [facility] Continue follow-up yearly with Dr. Islas Assessment & Plan (12/23/2024 9:27 AM EDT): >>ASSESSMENT AND PLAN FOR THYROID NODULE WRITTEN ON 01/25/2024 2:49 PM BY ESTEFANIA FONTAINE - seen by endocrinology (Dr. Islas maintenance supervisor) - will reach out to them for endocrinology referral to [facility] Hypokalemia 10/08/2023 Assessment & Plan (10/08/2023 1:17 [...] Chronic low back pain 02/17/2023 Tendinosis 02/17/2023 Shoulder pain 02/17/2023 Vertigo 02/08/2019 Assessment & Plan (01/25/2024 2:49 PM EDT): - Resolved Recurrent major depression in partial remission 10/06/2017 Essential hypertension 09/09/2016 Assessment & Plan (12/23/2024 3:06 PM EDT): Controlled. Compliant w/meds Continue Losartan +Metoprolol + Spironolactone Counseled re low salt diet/increase moderate physical activity. Check home BP BIW and prn CP/DOCKERY/BUNCH Non smoking patient. F/u in 4 months Declined influenza immunization today Assessment & Plan (06/27/2024 3:16 PM EDT): [...] 12.5mg BID Order BMP and FU at [facility] clinic in 2-3 wks and [...] prn CP/DOCKERY/BUNCH Non smoking patient. Osteoporosis 05/17/2015 Assessment & Plan (12/23/2024 3:04 PM EDT): Doing well on Fosamax and vitamin D supplementation. Follow-up DEXA scan in 2025 Follow-up with Dr. 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 Repeat TSH order Thyroid us to define thyroid nodules refer to maintenance supervisor. Suspected COVID-19 virus infection 02/17/2023 12/23/2024 Encounters Date Type Department Care Team Description 06/29/2025 Telephone [facility] MEDICINE [address] [place] [address] Luz Marina Arias MD Chart Prep 06/22/2025 Patient Outreach [facility] MEDICINE [address] [place] [address] Luz Marina Arias MD Pre-visit Planning (SDOH screening completed on 12/13/2024) from Last 3 Months Immunizations Immunization Administration Dates Next Due Hep B, adult [...] your housing situation today? I have gardenia sing 12/13/[address] you li ve. Do you have problems with any of the following? None of the above 12/13/2024 Food Insecurity Answer Date Recorded Within the past 12 months, y ou worried that your food would run out before you got money to buy more: Never True 12/13/2024 Within the past 12 months,th e food you bought just didn't last and you didn't have enough money to get more: Never True Transportation Answer Date Recorded In the past 12 months, has l ack of transportation kept you from medical appts, meetings, work or from getting things needed for daily living? No 12/13/2024 Utilities Answer Date Recorded In the past 12 months, has t he electric, gas, oil or water company threatened to shut off services in your home? No 12/13/2024 Depression Answer Date Recorded Patient Health Questionnaire-2 Score 0 02/18/2023 Internet Access Answer Date Recorded Internet Access Q1 Yes 12/13/2024 Internet Access Q2 Not on file 12/13/2024 Comments No Sex and Gender Information Value Date Recorded Sex Assigned at Female 07/28/2022 10:19 AM EDT Legal Sex Female 10:19 AM EDT Gender Identity Female 07/28/2022 10:19 AM EDT Sexual Orientation Straight 07/28/2022 10 :19 AM EDT Last Filed Vital Signs Vital Sign Reading Time Taken Comments Blood Pressure 133/84 12/23/2024 11:18 AM EDT Pulse 62 12/23/2024 11:18 AM EDT Temperature 36.7 C (98.1 F) 12/23/2024 11:18 AM EDT Respiratory Rate 16 06/27/2024 2:43 PM EDT Oxygen Saturation 97% 12/23/2024 11:18 AM EDT Inhaled Oxygen Concentration - - Weight 60.5 kg (133 lb 6 oz) 12/23/2024 11:18 AM EDT Height 154.9 cm (5' 1 ) 12/23/2024 11:18 AM EDT Body Mass Index 25.2 12/23/2024 11:18 AM EDT Plan of Treatment Upcoming Encounters Date Type Department Care Team (Late st Contact Info) Description 12/04/2025 2:30 PM EDT Office Visit [facility] OPTOMETRY [address] [place], [place] [phone] Temo, Corin, OD [address] [place], [place] [phone] Health Maintenance Due Date Last Done Comments CT Colonography 1962 FIT DNA/Cologuard 1962 FIT 1962 FOBT 1962 Sigmoidoscopy 1962 Disability Screening 1962 Alcohol/Substance Use Screening 1974 Pneumococcal Vaccine: 50+ Years (1 of 1 - PCV) 2012 Zoster Vaccines (2 of 3) 08/12/2019 06/17/2019 Mammogram 05/21/2023 05/21/2021, 04/29, 04/08/2021, Additional history exists DTaP/Tdap/Td Vaccines (2 - Td or Tdap) 01/04/2024 01/03/2014, 09/03/2009 Depression Screening 02/19/2024 02/18/2023, 02/19/20 23 Colonoscopy 02/28/2024 02/27/2014 Colorectal Cancer Screening 02/28/2024 Dental X-Ray: Full Mouth 04/30/2024 021, 04/29/2021, 03/13/2016 Dental Oral Exam 05/20/2024 11/19/2023, 10/2021, 11/26/2021, Additional history exists Dental Prophylaxis 06/03/2024 12/01/2023, 1 09/29/2021, 11/26/2021, Additional history exists Dental X-Ray: Bitewings 11/20/2024 11/19/19 24, 07/30/2022, 04/29/2021, Additional history exists COVID-19 Vaccine ( season) 2025 10/04/2021, 02/20/2021, 01/16/2021 Influenza Vaccine (#1) 2025 , 07/01/2022, 08/24/2021, Additional history exists SDOH Screening 12/13/2025 12/13/2024 Tobacco Screening 12/23/2025 12/23/2024 Lipid Panel 12/07/2028 12/08/2023, 01/27, 01/15/2021 RSV [...] patient's age to complete this topic Meningococcal B Vaccine Aged Out No l onger eligible based on patient's age to complete [...] Author Blood Pressure < 150/90 Blood Pressure 133/84(2024 11:18 AM EDT) Andrew June, PharmD Note: Per JNC-8: Age >60 w/o history of CKD or DM Procedures Procedure Name Priority Date/Time Associated Diagnosis Comments HIGH SENSITIVITY TROPONIN I Routine 08/26/2025 5:58 PM EST MAGNESIUM Routine 08/26/2025 5:58 PM EST COMPREHENSIVE METABOLIC PANEL Routine 08/26/2025 5:58 PM EST CBC WITH AUTO DIFFERENTIAL Routine 08/26/2025 5:58 PM EST HEPATITIS PANEL, GENERAL Routine 02/02/2024 [...] Recently Relevant to Health Maintenance Results * High Sensitivity Troponin I (08/26/2025 5:58 PM EST) [facility] TROPONIN I HIGH SENSITIVITY 2.7 <3.5 - 17.0 ng/L [facility] Comment:The Estrella high sens itivity Troponin-I results should beused in conjunction with other diagnostic information suchas ECG, clinical observations and information, and patientsymptoms to aid in the diagnosis of [place]. 08/26/2025 5:58 PM EST 08/26/2025 6:01 PM EST us Generic External Data Provider LAB BLOOD ORDERAB LES Final Result [facility] [address] [place] [phone] * CBC auto differential (08/26/2025 5:58 PM EST) [facility] White Blood Count 6.8 4.8 - 10.8 X10*3/uL [facility] Red Blood Count 4.46 4.20 - 5.50 X10*6/uL [facility] Hemoglobin 13.2 12.0 - 16.0 g/dl [facility] Hematocrit 40.6 37.0 - 47.0 % [facility] Mean Corpuscular Volume 91.0 80.0 - 98.0 fL [facility] Mean Corpuscular Hemoglobin 29.6 27.0 - 33.0 pg [facility] Mean Corpuscular HGB Conc 32.5 31.0 - 35.0 g/dl [facility] Red Cell Distribution Width 12.7 11.0 - 16.0 % [facility] Platelet Count 227 160 - 400 X10*3/uL [facility] Mean Platelet Volume 11.7 9.4 - 12.3 fL [facility] Neutrophils Percent Auto 62.0 45 - 73 % [facility] Imm Gran Pct Auto 0.4 0.0 - 0.4 % [facility] Lymphocytes Percent Auto 28.0 20 - 40 % [facility] Monocytes Percent Auto 7.7 2 - 11 % [facility] Eosinophils Percent Auto 1.0 0 - 4 % [facility] Basophils Percent Auto 0.9 0 - 2 % [facility] NRBC Pct Auto 0.0 0.0 - 0.2 /100WBC [facility] Neutrophils Absolute Auto 4.2 2.0 - 8.3 x10*3/uL [facility] Imm Gran Abs Auto 0.03 0.00 - 0.03 X10*3/uL [facility] Lymphocytes Absolute Auto 1.9 1.2 - 4.9 X10*3/uL [facility] Monocytes Absolute Auto 0.5 0.1 - 1.2 X10*3/uL [facility] Eosinophils Absolute Auto 0.1 0.0 - 0.4 X10*3/uL [facility] Basophils Absolute Auto 0.1 0.0 - 0.2 X10*3/uL [facility] NRBC Abs Auto 0.000 0.0 - 0.012 X10*3/uL [facility] 08/26/2025 5:58 PM EST 08/26/2025 6:01 PM EST Generic External Data Provider LAB BLOOD ORDERAB LES Final Result Performing Organization Address [facility]/ZIP Co de Phone Number [facility] [address] [place] [phone] * Magnesium (08/26/2025 5:58 PM EST) Pathologist [facility] Magnesium 2.3 1.6 - 2.6 mg/dL [facility] 08/26/2025 5:58 PM EST 08/26/2025 6:01 PM EST Generic External Data Provider LAB BLOOD ORDERAB LES Final Result Performing Organization Address [facility] Co de Phone Number [facility] [address] [place] [phone] * (ABNORMAL) Comprehensive Metabolic Panel (08/26/2025 5:58 PM EST) Pathologist [facility] Sodium 138 135 - 145 mmol/L [facility] Potassium 3.5 3.3 - 5.1 mmol/L [facility] Chloride 102 96 - 108 mmol/L [facility] Carbon Dioxide 24 22 - 29 mmol/L [facility] Anion Gap 16 12 - 20 [facility] Urea Nitrogen (BUN) 13 9 - 16 mg/dL [facility] Creatinine, Serum 0.78 0.5 - 1.4 mg/dL [facility] Creatinine Clr Calc Pharmacy 60.9 [facility] Comment:Provided height and weight: 154.94 cm,59 kg.eGFR (calculated from the MDRD study equation) and eCrCl(calculated from the Cockcroft-Gault equation) are based ondifferent parameters and may not yield comparable results.If eCrCl result is absurd, please check patient'sheight/weight. Estimated Glomerular Filt Rate >60 [facility] Comment:Chronic Kidney Disea se: Estimated GFR < 60 mL/min/1.61w1Lkbxtv Kidney Disease: Estimated GFR < 15 mL/min/1.73m2 Glucose 97 60 - 115 mg/dL [facility] Calcium 9.7 8.4 - 10.2 mg/dL [facility] Bilirubin, Total 0.6 0.0 - 1.0 mg/dL [facility] Aspartate Amino Transferase 32(H) 5 - 31 U/L [facility] Alanine Aminotransferase 21 0 - 31 U/L [facility] Total Protein 8.2(H) 6.5 - 8.0 g/dL [facility] Albumin Level 5.1(H) 3.5 - 5.0 g/dL [facility] Alkaline Phosphatase 100 39 - 117 U/L [facility] 08/26/2025 5:58 PM EST 08/26/2025 6:01 PM EST us Generic External Data Provider LAB BLOOD ORDERAB LES Final Result [facility] [address] [place] [phone] * Hepatitis Panel, General (02/02/2024 9:10 AM EDT) Hepatitis A IgM Nonreactive Nonreactive [facility] Comment:IgM antibodies to DOCKERY V not detected; does not exclude earlyacute or recovered HAV infection. ~Hepatitis B Surface Antibody REACTIVE Nonreactive [facility] Comment:REACTIVE: > 11.99 mI U/mL Hepatitis B Core Antibody Nonreactive Nonreactive [facility] Hepatitis C Antibody Nonreactive Nonreactive [facility] Comment:Antibodies to HCV no t detected; does not exclude early acuteHCV infection. Hepatitis B Surface Ag Negative Negative [facility] Blood 02/02/2024 9:10 AM EDT 02/02/2024 11:41 AM EDT us Luz Marina Arias MD LAB BLOOD ORDERABLES Fin al Result Performing Organization Address [facility] Co de Phone Number [facility] [address] [place] [phone] * HIV-1/2 Antigen and Antibodies, Fourth Generation, with Reflexes (02/02/2024 9:10 AM EDT) HIV AB/AG Nonreactive Nonreactive [facility] Comment:HIV-1 p24 Ag and/or HIV-1/HIV-2 Ab not detected.A test result that is nonreactive does not exclude thepossibility of exposure to or infection with HIV-1 and/orHIV-2. Nonreactive results in this assay for individualswith prior exposure to HIV-1 and/or HIV-2 may be due toantigen and antibody levels that are below the limit ofdetection of this assay.The [employer] HIV Ag/Ab Combo assay result andsupplemental assay results should be interpreted inconjunction with the patient's clinical presentation,history and other laboratory results. If the results areinconsistent with clinical evidence, additional testing issuggested to confirm the result. Blood Venous blood specimen / Unknown 02/02/2024 9:10 AM EDT 02/02/2024 11:41 AM EDT us Luz Marina Arias MD LAB BLOOD ORDERABLES Fin al Result Performing Organization Address [facility] Co de Phone Number [facility] [address] [place] [phone] * (ABNORMAL) Lipid Panel with Reflex to Direct LDL (12/08/2023 3:00 PM EDT) Triglycerides 85 <150 mg/dL [facility] Comment:Desirable Triglyceri de: less than 150 mg/dLBorderline High Triglyceride 150-199 mg/dLHigh Triglyceride: 200-499 mg/dLVery High Triglyceride: greater than or equal to 5OO mg/dL Cholesterol 204(H) <200 mg/dL [facility] Comment:Desirable Cholestero l: less than 200 mg/dLBorderline High Cholesterol: 200-239 mg/dLHigh Cholesterol: greater than 239 mg/dL LDL Cholesterol Calculated 120(H) <100 mg/dL [facility] Comment:Desirable LDL: less than 100 mg/dLNear Optimal/Above Optimal LDL: 110- 129 mg/dLBorderline High LDL: 130-159 mg/dLHigh LDL: 160-189 mg/dLVery High LDL: greater than or equal to 190 mg/dL HDL Cholesterol 67 >40 mg/dL [facility] Comment:Desirable HDL: great er than 40 mg/dL Note: This HDL assay may give artificially low results in patients with liver disease. Blood 12/08/2023 3:00 PM EDT 12/08/2023 4:06 PM EDT Luz Marina Arias MD LAB BLOOD ORDERABLES Fin al Result [facility] [address] [place] [phone] * THINPREP TIS PAP (08/08/2021 11:03 AM EST) Clinical Information: None given [facility] COMMENT SEE COMMENT [facility] Comment: EXPLANATORY NOTE: The Pap is a screening test for cervical cancer. It is not a diagnostic test and is subject to false negative and false positive results. It is most reliable when a satisfactory sample, regularly obtained, is submitted with relevant clinical findings and history, and when the Pap result is evaluated along with historic and current clinical information. COMMENT: This Pap test has been evaluated with computer assisted technology. [facility] Culinary Assistant : SEE COMMENT [facility] Comment: DCR, CT(ASCP) CT screening location: [place] [address] Interpretation/R esult: Negative for intraepithelial lesion or malignancy. [facility] LMP: NONE [facility]IV[facility] Prev. BX: NONE [facility] Prev. PAP: NONE [facility]IV[facility] SOURCE: Cervix [facility] Statement Of Adequacy: SATISFACTORY FOR EVALUATION [facility] 08/08/2021 11:0 3 AM EST Luz Marina Arias MD LAB PATHOLOGY ORDERABLES Final Result Performing Organization Address [facility] de Phone Number [facility] [address] * HPV mRNA E6/E7 (08/08/2021 11:03 AM EST) HPV nRNA E6/E7 Not Detected Not Detected [facility] Comment: Methodology: Inclusion Paraeducator-Mediated Amplification This assay detects E6/E7 viral messenger RNA (mRNA) from 14 high-risk HPV types (16,18,31,33,35,39,45,51,52,56,58,59,66,68). The analytical performance characteristics of this assay have been determined by [employer]. The modifications have not been cleared or approved by the FDA. This assay has been validated pursuant to the CLIA regulations and is used for clinical purposes. For additional information, please refer to http://education.Sonatype/faq/KWE326h4 (This link if provided for information/ educational purposes only.) 08/08/2021 11:0 3 AM EST Luz Marina Arias MD LAB BLOOD ORDERABLES Fin al Result Performing Organization Address [facility] de Phone Number [facility] [address] * Mammography Report 1 (05/21/2021 1:45 PM EDT) Anatomical Region Laterality Modality Breast Bilateral Mammography 05/21/2021 1:45 PM EDT Narrative 05/22/2021 11:53 AM EDT Refer to the Notes tab for result details [facility] Procedure: Mammography Report 1 Procedure Note Provider, MD Tanya - 12/21/2022 Refer to the Notes tab for result details [facility] Procedure: Mammography Report 1 Luz Marina Arias MD IMG BI PROCEDURES Final Result * Hm Colonoscopy (02/27/2014 10:35 AM EDT) Colonoscopy Normal Normal Narrative Roma Medley - 02/27/2014 10:35 AM EDT Recommended 10 [place] ( [facility] Historical Provider HEALTH MAINTENANCE Final Result from Last 3 Months or Most Recently Relevant to Health Maintenance Insurance [address] [place] [address] [facility] HSN PART[facility] [address] [place], [place] DENTAL - HSN PARTIAL (MEDICAID) [address] [place], [place] Care Teams Oxidized Finish Plater Relationship Specialty Start Date End Date Luz Marina Arias MD [address] [place], [place] PCP - General Family Medicine 06/29/18 Andrew Prasad, SunD [address] [place] [address] Pharmacist Internal Medicine 07/10/23
--- OUTSIDE RECORDS SUMMARY | 2025-08-26 20:29 | XMS_ITS | Encounter Summary ---
Author Organization [employer] Address [address] [facility] [address] [place] [address] Care Team Providers Care Washroom Cleaner Name Role Phone Luz Marina Arias MD Primary Care Provider + Andrew Prasad PharmD Unavailable [phone] Reason for Visit * Reason Comments Med Refill Encounter Details Date Type Department Care Team ([facility] st Contact Info) Description 07/10/2024 Refill [facility] MEDICINE [address] [place], [place] [phone] Lucero Gonzalez MD [address] [place] [address] Onycholysis Social History Tobacco Use Types Packs/Day [...] Description 12/04/2025 2:30 PM EDT Office Visit [facility] OPTOMETRY [address] [place], [place] [phone] TemoCorin cordoba, OD [address] [place] [address] documented as of this encounter Goals Goal Patient Goal Type Associated Problems Recent Progress Patient-Stated? Author Blood Pressure < 150/90 Blood Pressure 133/84(2024 11:18 AM EDT) No Andrew Prasad PharmD Note: Per JNC-8: Age >60 w/o history of CKD or DM documented as of this encounter Visit Diagnoses Diagnosis Onycholysis Other specified disease of nail documented in this encounter Care Teams Washroom Cleaner Relationship Specialty Start Date End Date Luz Marina Arias MD [address] [place] [address] PCP - General Family Medicine 06/29/18 Andrew Prasad, Melisa [address] [place], [place] [phone] Pharmacist Internal Medicine 07/10/23 documented as of this encounter
--- OUTSIDE RECORDS SUMMARY | 2025-08-26 20:29 | XMS_ITS | Encounter Summary ---
Author Organization [employer] Address [address] [facility] [address] [place] [address] Care Team Providers Care Brick Picker Name Role Phone Luz Marina Arias MD Primary Care Provider + Andrew Prasad PharmD Unavailable [phone] Encounter Details Date Type Department Care Team (Latest Contact Info) Description 04/29/2021 Abstract [facility] CONVERSIONS Dental, Provider, DDS Social [...] Description 12/04/2025 2:30 PM EDT Office Visit [facility] OPTOMETRY [address] [place] [address] Corin Plascencia, OD [address] [place] [address] documented as of this encounter Visit Diagnoses Not on filedocumented in this encounter Care Teams Brick Picker Relationship Specialty Start Date End Date Luz Marina Arias MD [address] [place] [address] PCP - General Family Medicine 06/29/18 Andrew Prasad, PharmD [address] [place] [phone] Pharmacist Internal Medicine 07/10/23 documented as of this encounter
--- OUTSIDE RECORDS SUMMARY | 2025-08-26 20:29 | XMS_ITS | Encounter Summary ---
Author Organization [employer] Address [address] [facility] 7t [place] [address] Care Team Providers Care Principal Planner Name Role Phone Luz Marina Arias MD Primary Care Provider + Andrew Prasad PharmD Unavailable [phone] Reason for Visit * Reason Onset Date Comments triage 01/29/2023 Encounter Details Date Type Department Care Team ([facility] st Contact Info) Description 01/29/2023 Telephone [facility] [address] [place], [place] [phone] Luz Marina Arias MD [address] [place], [place] [phone] triage Social History Tobacco Use Types Packs/Day [...] In the last 10 days, have yo hiren been in contact with someone who was confirmed or suspected to have Coronavirus/COVID-19? No / Unsure 01/26/2023 1:19 PM EDT documented as of this encounter Miscellaneous Notes * Telephone Encounter - Emily Valverde RN - 01/29/2023 2:41 PM EDT Triage call with [place] [id number] Pt reports woke up this morning with [...] medications. Pt is advised to come to [facility] today or tomorrow morning and Pt agrees. [...] Description 12/04/2025 2:30 PM EDT Office Visit [facility] [address] [place] [address] Corin Plascencia, OD [address] [place] [address] documented as of this encounter Visit Diagnoses Not on filedocumented in this encounter Care Teams Principal Planner Relationship Specialty Start Date End Date Luz Marina Arias MD [address] [place] [address] PCP - General Family Medicine 06/29/18 Andrew Prasad, SunD [address] [place] [address] Pharmacist Internal Medicine 07/10/23 documented as of this encounter
--- OUTSIDE RECORDS SUMMARY | 2025-08-26 20:29 | XMS_ITS | Encounter Summary ---
Author Organization [employer] Address [address] [facility] 7t [place] [address] Care Team Providers Care Radioisotope Technician Name Role Phone Luz Marina Arias MD Primary Care Provider + Andrew Prasad PharmD Unavailable [phone] Encounter Details Date Type Department Care Team (Latest Contact Info) Description 07/30/2022 Abstract [facility] CONVERSIONS Dental, Provider, DDS Social History [...] Description 12/04/2025 2:30 PM EDT Office Visit [facility] OPT[facility] [address] [place] [address] Corin Plascencia, OD [address] [place] [address] documented as of this encounter Visit Diagnoses Not on filedocumented in this encounter Care Teams Radioisotope Technician Relationship Specialty Start Date End Date Luz Marina Arias MD [address] [place] [address] PCP - General Family Medicine 06/29/18 Andrew Prasad, PharmD [address] [place] [phone] Pharmacist Internal Medicine 07/10/23 documented as of this encounter
--- OUTSIDE RECORDS SUMMARY | 2025-08-26 20:29 | XMS_ITS | Encounter Summary ---
Author Organization [employer] Address [address] [facility] 7t [place] [address] Care Team Providers Care Molding Machine Tender Name Role Phone Luz Marina Arias MD Primary Care Provider + Andrew Prasad PharmD Unavailable [phone] Encounter Details Date Type Department Care Team (Late st Contact Info) Description 03/12/2023 Abstract [facility] [address] [place] [address] Luz Marina Arias MD [address] [place] [address] Social History Tobacco Use Types Packs/Day Years [...] Description 12/04/2025 2:30 PM EDT Office Visit [facility] [address] [place] [address] Corin Plascencia, OD [address] [place] [address] documented as of this encounter Procedures Procedure Name Priority Date/Time Associated Diagnosis Comments COLONOSCOPY Routine 02/27/2014 10:35 AM EDT documented in this encounter Results * Colonoscopy (02/27/2014 10:35 AM EDT) Colonoscopy Normal Normal Narrative Roma Medley - 02/27/2014 10:35 AM EDT Recommended 10 year follow up ( [facility]) Historical Provider HEALTH MAINTENANCE Final Result documented in this encounter Visit Diagnoses Not on filedocumented in this encounter Care Teams Molding Machine Tender Relationship Specialty Start Date End Date Luz Marina Arias MD [address] [place] [address] PCP - General Family Medicine 06/29/18 Andrew Prasad, SunD [address] [place], [place] [phone] Pharmacist Internal Medicine 07/10/23 documented as of this encounter
--- OUTSIDE RECORDS SUMMARY | 2025-08-26 20:30 | XMS_ITS | Encounter Summary ---
Author Organization [facility] Address [address] [place] [address] Phone Care Team Providers Care Post Secondary Professional Name Role Phone Unknown, Unknown Primary Care Provider Wilfred mustafa Encounter Details Date Type Department Care Team (Late st Contact Info) Description 07/13/2019 Ancillary Orders [facility] [address] [place] [address] Laura Iniguez PA [address] [place] [address] [email or web address] Social History Tobacco Use Types Packs/Day Years Used Date Smoking Tobacco: Never Assessed Comments Unknown Sex and Gender Information Value Date Recorded Sex Assigned at Not on file Legal Sex Female 11:54 AM EDT Gender Identity Not on file Sexual Orientation Not on file documented as of this encounter Plan of Treatment Not on file documented as of this encounter Results * Holter Monitor 48 Hours (07/13/2019 12:01 PM EDT) Anatomical Region Laterality Modality Heart Other Narrative 07/13/2019 12:27 PM EDT 48-hour monitor: Baseline rhythm is sinus with a minimum maximum 148, average 78 bpm. No long pauses present. Occasional PACs present. Minor increase in frequency of ventricular ectopy, about 1200 PVCs per 24 hours. These are mainly isolated PACs with occasional couplets. There is no diary returned. There are patient event markers which occur mainly during sinus rhythm and occasionally during sinus rhythm with single PVCs. Impression: Abnormal 48-hour monitor. Minor increase in frequency of PVCs, about 1200 PVCs per 24 hours. Patient event markers occurred primarily during sinus rhythm without ectopy, occasionally during sinus rhythm with single PVCs, similar to baseline rhythm. Procedure Note Alfred Millan MD - 07/13/2019 48-hour monitor: Baseline rhythm is sinus with a minimum maximum 148,average 78 bpm. No long pauses present. Occasional PACs present. Minorincrease in frequency of ventricular ectopy, about 1200 PVCs per 24 hours.These are mainly isolated PACs with occasional couplets. There is nodiary returned. There are patient event markers which occur mainly duringsinus rhythm and occasionally during sinus rhythm with single PVCs. Impression: Abnormal 48-hour monitor. Minor increase in frequency ofPVCs, about 1200 PVCs per 24 hours. Patient event markers occurredprimarily during sinus rhythm without ectopy, occasionally during sinusrhythm with single PVCs, similar to baseline rhythm. Laura [facility] ORDER[facility] BLES Final Result documented in this encounter Visit Diagnoses Diagnosis Palpitations Palpitations documented in this encounter Care Teams Post Secondary Professional Relationship Specialty Start Date End Date Unknown, Unknown, PCP - General 07/13/19 documented as of this encounter Additional Source Comments The information contained in this document represents components of the legal health record. It is not the complete legal health record.[facility]
--- OUTSIDE RECORDS SUMMARY | 2025-08-26 20:30 | XMS_ITS | Data Portability ---
Author Organization [place] [facility], [facility] Address [address] [address] Care Team Providers Care Upper Stitcher Name Role Phone BRENT LYON Primary Care Provider [phone] Assessment No assessment recorded. Plan of Treatment Reminders Order Date Submit Date Provider Last Modified By Organization Details Last Modified Time Details Appointments None record ed. Lab None record ed. Referral None record ed. Procedures None record ed. Surgeries None record ed. Imaging None record ed. Medication Orders None record ed. Patient TargetsNo targets recorded. Patient Instructions Encounter Date Encounter Id Patient Instructions Last Modified By Organization Details Last Modified Time 11/21/2024 [id number] Patient with prior history of conductive loss secondary to otosclerosis presents with more than 7 years of hearing difficulty in the left ear and a few months of intermittent fullness and whistling sensation. She says things are actually getting better. Denies eating, drinking or swallowing difficulties. Audiometric testing shows mild high-frequency hearing loss predominantly on the right side. Suggest warm compresses soft diet and TMJ precautions if she has persistent symptoms she will return for reevaluation. [email or web address] Not available 11/21/2024 16:07:55 Reason for Referral None Reported. Problems Name Problem SNOMED Code Status Onset Date Resolution Date Notes Provider Name and Address Organization Details Recorded Time Otosclero sis 74901603 Active 2013 Otosclero sis, unspecifi ed; Note: Date Diagnosed : 4 3:31 PM (387.9) Not Available [facility] 4 02:56:20 Unilatera l sensorine ural hearing loss with unrestric yossi hearing on the contralat eral side Active 2013 Sensorine ural HL, unilatera l; Note: Date Diagnosed : 4 3:04 PM (389.15) Not Available On license of [facility] 4 02:56:17 Impacted cerumen of bilateral ears 94102447806 21208 Active 2018 Impacted cerumen, bilateral ; Note: Date Diagnosed : 06/15/2019 1:28 PM (H61.23) Not Available [facility] 4 02:56:19 Bilateral tinnitus 58279618166 02 Active 2018 Tinnitus, bilateral ; Note: Date Diagnosed : 06/15/2019 2:08 PM (H93.13) Not Available On license of [facility] 4 02:56:19 Dizziness and giddiness 014955324 Active 2018 Dizziness and giddiness ; Note: Date Diagnosed : 06/15/2019 1:31 PM (R42) Not Available [facility] 4 02:56:17 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 27167644 Active 2018 Otosclero sis involving oval window, nonoblite rative, right ear; Note: Date Diagnosed : 06/15/2019 4:18 PM (H80.01) Not Available On license of [facility] 4 02:56:20 Sensorine ural hearing loss 23694089 Active 2018 Sensorine ural hearing loss, unilatera l, right ear, with unrestric yossi hearing on the contralat eral side; Note: Date Diagnosed : 06/15/2019 2:08 PM (H90.41) Not Available On license of [facility] 4 02:56:20 Abnormal auditory perceptio n 65766883 Active 2024 TRES GAXIOLA MD [address] [facility],[place] [address], [place], [address] , [facility] 5 16:08:02 Abnormal auditory perceptio n 43373690 Active 2024 TRES GAXIOLA MD [address] [facility],[place] [address], [place], [address] , [place] - [facility] 5 16:08:10 Problem Notes None recorded. Procedures Surgical History Date Name Laterality Status Provider Name and Address Organization Details Recorded Time 11/21/19 25 Air & Speech Audio with Tymps - 62598, 32476 & 41860 completed Tripp RUSH [address] [facility],[place] [address], [place], [address], [facility] 11/21/2024 15:38:26 stapedectomy completed TRES STEELE MD [address] [facility],[address], [address], [facility] 11/21/2024 16:06:41 Imaging Results None recorded. Procedure Notes None recorded. Medical Equipment None Reported. Medications Name Sig Start Date Stop Date Status Note LastModified by Organization Details LastModified Time losartan 50 mg tablet TOME BAYRON TABLETA TODOS LOS D EN ARRON GONZALEZ JESUS active Not Available Not Available No t Available ketoconazo le 2 % shampoo APPLY TOPICALLY 2 TIMES A WEEK active Not Available Not Available No t Available amlodipine 5 mg tablet 2018 active Medicatio n ID: [id number] Du ration Value: 30 Brand Name: amlodipin e Send Method: E-Prescri bed Subs Allowed: subs OK Specia l Instructi on: TOME BAYRON TABLETA TODOS LOS D? Medi cationGen ericName: amlodipin e Not Available Not Available Not Available triamcinol one acetonide 0.1 % topical cream APPLY TOPICALLY IF NEEDED IN THE MORNING AND AT BEDTIME (PAIN AND SWELLING) . active Not Available Not Available No t Available spironolac tone 25 mg tablet TAKE HALF A TABLET POR V A ORAL TODOS LOS D active Not Available Not Available No t Available ofloxacin 0.3 % ear drops ADMINISTE R 5 DROPS INTO AFFECTED EAR(S) 2 TIMES DAILY FOR 10 DAYS. active Not Available Not Available No t Available ciprofloxa bita 0.3 % eye drops INSTILL 4 DROPS TO LEFT EAR TWICE DAILY FOR 7 DAYS active Not Available Not Available No t Available cephalexin 500 mg capsule 2018 active Medicatio n ID: [id number] Du ration Value: 5 Brand Name: cephalexi n Send Method: E-Prescri bed Subs Allowed: subs OK Specia l Instructi on: TOME BAYRON C?PSULA CADA SEIS HORAS Med icationGe nericName : cephalexi n Not Available Not Available Not Available triamcinol one acetonide 0.1 % topical ointment APPLY TOPICALLY ONCE PER DAY. APPLY ON TOE NAILS AFTER CLIPPING active Not Available Not Available No t Available lisinopril 10 mg tablet 2013 [place]: [id number] Dur ation Value: 30 Brand Name: lisinopri l Send Method: E-Prescri bed Subs Allowed: subs OK Medica tionGener icName: lisinopri l Not Available Not Available Not Available hydrochlor othiazide 25 mg tablet 2018 active Medicatio n ID: [id number] Du ration Value: 30 Brand Name: hydrochlo rothiazid e Send Method: E-Prescri bed Subs Allowed: subs OK Specia l Instructi on: TOME BAYRON TABLETA TODOS LOS D? Medi cationGen ericName: hydrochlo rothiazid e Not Available Not Available Not Available gabapentin 100 mg capsule 2018 active Medicatio n ID: [id number] Du ration Value: 30 Brand Name: gabapenti n Send Method: E-Prescri bed Subs Allowed: subs OK Specia l Instructi on: TOME BAYRON C?PSULA DOS VECES AL D?A Medic ationGene ricName: gabapenti n Not Available Not Available Not Available metoprolol succinate ER 25 mg tablet,ext ended release 24 hr TOME 1 TABLETA POR V A ORAL TODOS LOS D active Not Available Not Available No t Available ibuprofen 600 mg tablet Take 1 tablet by mouth three times a day active Medicatio n ID: [id number] Du ration Value: 7 Brand Name: ibuprofen Send Method: E-Prescri bed Subs Allowed: subs OK Specia l Instructi on: take with food Medi cationGen ericName: ibuprofen Not Available Not Available Not Available losartan 100 mg tablet TAKE 1 TABLET (100 MG) BY MOUTH ONCE PER DAY. active Not Available Not Available No t Available fluticason e propionate 50 mcg/actuat ion nasal spray,susp ension ADMINISTE R 1 SPRAY INTO EACH NOSTRIL ONCE PER DAY. active Not Available Not Available No t Available Murine Ear 6.5 % drops ADMINISTE R 5-10 DROPS INTO AFFECTED EAR(S) 2 TIMES DAILY FOR 4 DAYS. *NC* active Not Available Not Available No t Available Calcium-50 0 500 mg (as calcium carbonate 1,250 mg) tablet active Medicatio n ID: [id number] Br and Name: Calcium 500 Send Method: E-Prescri bed Subs Allowed: subs OK Medica tionGener icName: Calcium 500 Not Available Not Available Not Available Vitamin D3 25 mcg (1,000 unit) capsule active Medicatio n ID: [id number] Br and Name: Vitamin D3 Send Method: E-Prescri bed Subs Allowed: subs OK Medica tionGener icName: Vitamin D3 Not Available Not Available Not Available Cymbalta 30 mg capsule,de layed release active Medicatio n ID: [id number] Br and Name: Cymbalta Send Method: E-Prescri bed Subs Allowed: subs OK Medica tionGener icName: Cymbalta Not Available Not Available Not Available One-Per-Da y [place]-3 684 mg-1,200 mg capsule,de layed release active Medicatio n ID: [id number] Br and Name: One-Per-D ay [place]-3 S end Method: E-Prescri bed Subs Allowed: subs OK Medica tionGener icName: One-Per-D ay [place]-3 Not Available Not Available Not Available cholecalci ferol (vitamin D3) 50 mcg (2,000 unit) capsule TOME 1 C PSULA POR V A ORAL TODOS LOS D active Not Available Not Available No t Available Tylenol 325 mg capsule active Medicatio n ID: [id number] Br and Name: Tylenol S end Method: E-Prescri bed Subs Allowed: subs OK Medica tionGener icName: Tylenol Not Available Not Available Not Available Vitals Date Recorded Body height Body mass index (BMI) Body weight Provider Name and Address Organization Details Last Updated DateTime 11/21/2024 154.94 cm 24.2 kg/m2 25050.82 g Mil [place] [facility] 11/21/2024 15:52:21 Social History None recorded. Functional Status None recorded. Mental Status None recorded. Family History Nothing Reported. Medical History Condition Response Hearing Loss Y Hypertension Y Gynecological HistoryNo gynecological history recorded. Obstetrics History GPAL:G 0 P 0 0 0 0 Past Encounters Encounter ID Performer Location Encounter Start Date Encounter Closed Date Diagnosis/Indication Diagnosis SNOMED-CT Code Diagnosis ICD10 Code Diagnosis IMO Codes Diagnosis Note [id number] RTES GAXIOLA MD [facility] [address] [place] [address] 11/21/2024 15:06:30 11/21/2024 16:51:55 Sensorineural hearing loss 77428047 H90.41 Audiologic al evaluation results:Ri ght ear:Normal hearing from 250 through 3000 Hz sloping to a moderate sensorineu ral hearing loss with excellent word recognitio n.Left ear:Normal hearing from 250 through 8000 Hz with excellent word recognitio n. Tympanomet ry:Right Ear:Type ALeft Ear:Type A Abnormal a uditory perception 49293254 H93.292 Health Concerns Section Related Observation LastModified by Organization Detai ls LastModified Time None Recorded Concern Status LastModified by Organization Details LastModified Time None Recorded Advance Directives Directive None Recorded Payers Insurance Date Sequence Insurance Name Policy Number Policy Mejia Covered Member ID Mejia Member ID Guarantor Name 11/21/2024 1 [place] [id number] [employer]ter[employer] Notes Date Note Type Note Provider Name and Address Organization Details Recorded Time 11/21/2024 text/html Patient with history of right sided otosclerosis and surgical treatment for conductive hearing loss in 2013. She was seen shortly thereafter for sensation of hearing loss in her left ear. She has had this sensation for many years. Occasional intermittent discomfort but no eating, drinking or swallowing difficulty denies any vertigo she does have occasionally a whistling noise in the left ear. Feels that her right ear is at baseline TRES STEELE MD [address], [address], [facility] - [facility] 11/21/2024 16:08:38 OBGyn Episode No OBEpisode recorded.
--- OUTSIDE RECORDS SUMMARY | 2025-08-26 20:30 | XMS_ITS | Clinical Summary ---
Author Organization [facility] Address [address] [place] [phone] Phone Care Team Providers Care Guest House Manager Name Role Phone Unknown, Unknown Primary Care Provider Wilfred mustafa Social History Tobacco Use Types Packs/Day Years Used Date Smoking Tobacco: Never Assessed Education Answer Date Recorded Are you interested in more education? Not on phillip e 01/23/2023 Are you concerned about learning? Not on file 01/23/2023 No 01/23/2023 No 01/23/2023 Digital Access Answer Date Recorded No 02/24/2023 No 02/24/2023 No 02/24/2023 Reliable internet access at home? Not on file 02/24/2023 Device with a working camera? Not on file Comments Unknown Sex and Gender Information Value Date Recorded Sex Assigned at Not on file Legal Sex Female 11:54 AM EDT Gender Identity Not on file Sexual Orientation Not on file Plan of Treatment Not on file Medical Devices Not on file Insurance [address] [place] [address] [facility] [employer] [address] [place] [address] [employer] [employer] [address] [place] [address] [employer] [address] [place] [address] [employer] [address] [place] [address] [employer] [employer] [address] [place] [address] [place] [address] [place] [address] [place] [address] Care Teams Guest House Manager Relationship Specialty Start Date End Date Unknown, Unknown, PCP - General 07/13/19 Additional Source Comments The information contained in this document represents components of the legal health record. It is not the complete legal health record.[facility]
[2025-08-26 21:56] VITALS: BP 169/82; PULSE 68; RESP 18; O2SAT 98
[2025-08-26 22:00] VITALS: BP 169/82; PULSE 68; RESP 18; O2SAT 98
[2025-08-26 22:23] VITALS: BP 169/82; PULSE 68; RESP 18; TEMP 36.7; O2SAT 98
== END 2025-08-26 22:35 | disposition home or self-care (01) ==
PROVIDERS: Physician Assistant Medical; Emergency Provider Emergency Medicine; PCP Internal Medicine
DX: R51.9 Headache, unspecified (principal); I10 Essential (primary) hypertension; Z79.899 Other long term (current) drug therapy
CPT/HCPCS: 36415; 70450; 80053; 83735; 84484; 85025; 93005; 99284

== ENCOUNTER → 2025-08-26 17:20 | Outpatient (BNV) | payer MEDICAID, SELFPAY | PROVIDERS: Emergency Provider Emergency Medicine; PCP Internal Medicine; Visit Provider Internal Medicine | DX: R03.0 Elevated blood-pressure reading, without diagnosis of hypertension (principal) | CPT/HCPCS: 93010 ==

== ENCOUNTER → 2025-08-26 17:21 | Outpatient (BNV) | payer MEDICAID, SELFPAY | PROVIDERS: Emergency Provider Emergency Medicine; PCP Internal Medicine; Visit Provider Radiology Diagnostic Radiology | DX: R51.9 Headache, unspecified (principal); R03.0 Elevated blood-pressure reading, without diagnosis of hypertension | CPT/HCPCS: 70450 ==